=== PATIENT | female | born 1955 | race Caucasian/White ===

== ENCOUNTER 2018-09-21 17:54 | Inpatient (IN) ==
[2018-09-21 19:00] LABS: Baso # (Auto) 0.1 th/mm3 (0.0-0.2); Baso % (Auto) 0.9 % (0.0-2.0); Eos # (Auto) 0.1 th/mm3 (0.0-0.4); Eos % (Auto) 0.7 % (0.0-4.0); Hematocrit 40.9 % (35.0-46.0); Hemoglobin 13.4 gm/dL (11.6-15.3); Lymph # (Auto) 1.6 th/mm3 (1.0-4.8); Lymph % (Auto) 15.4 % (9.0-44.0); Mean Corpuscular HGB Conc 32.7 % (32.0-36.0); Mean Corpuscular Hemoglobin 27.1 pg (27.0-34.0); Mean Corpuscular Volume 82.8 fL (80.0-100.0); Mean Platelet Volume 8.8 fL (7.0-11.0); Mono # (Auto) 0.6 th/mm3 (0.0-0.9); Mono % (Auto) 6.1 % (0.0-8.0); Neut # (Auto) 7.8 th/mm3 (1.8-7.7); Neut % (Auto) 76.9 % (16.0-70.0); Platelet Count 184 th/mm3 (150-450); Red Blood Count 4.94 mil/mm3 (4.00-5.30); Red Cell Distribution Width 16.2 % (11.6-17.2); White Blood Count 10.2 th/mm3 (4.0-11.0)
[2018-09-21] MEDS ORDERED: LORazepam 1 MG Tablet PO ONE (19:07)
--- NOTE | 2018-09-21 19:08 | ED ---
HPI General Chief complaint: Psychiatric Symptoms Stated complaint: Psych eval / VCSO Time Seen by Provider: 09/21/18 17:57 History of Present Illness HPI narrative: abnormality.Patient is a 63-year-old female presents emergency department under Elliott act by physician education administrative assistant for evaluation of suicidal ideation. According to records the patient has a history of anxiety bipolar 1 disorder. She is requesting to see psychiatric provider. On my initial evaluation she is rocking back and forth sobbing and appears depressed. She denies any physical complaints. Has a history of suprapubic tube which she can cannot tell me why. According to records she has a history of urinary retention. She was seen here August 21 and had urinary tract infection at that time. Apparently she is anticoagulated on Xarelto as well. Patient sobbing limiting her history and she is not able to be directed towards history. 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 Related Data Home Medications Medication Instructions Recorded Confirmed acetaminophen 650 mg PO Q4H PRN 08/21/18 09/21/18 albuterol sulfate 2.5 mg INHALATION QID 08/21/18 09/21/18 albuterol sulfate [Ventolin HFA] 2 puff INHALATION QID 08/21/18 09/21/18 bisacodyl 5 mg PO DAILY 08/21/18 09/21/18 bumetanide 2 mg PO DAILY 08/21/18 09/21/18 calcium carbonate [Calcium 600] 600 mg PO BID 08/21/18 09/21/18 clonazepam 0.5 mg PO BID 08/21/18 09/21/18 dextran 70-hypromellose (PF) 1 drp OPHTHALMIC (EYE) Q12H PRN 08/21/18 09/21/18 docusate sodium 100 mg PO BID 08/21/18 09/21/18 duloxetine [Cymbalta] 120 mg PO 2100 08/21/18 09/21/18 fluticasone 1 spray INTRANASAL DAILY 08/21/18 09/21/18 fluticasone-salmeterol [Advair 1 inh INHALATION BID 08/21/18 09/21/18 Diskus] glipizide 2.5 mg PO DAILY 08/21/18 09/21/18 glycopyrrolate 1 mg PO TID 08/21/18 09/21/18 hydralazine 50 mg PO 0600 08/21/18 09/21/18 hydralazine 50 mg PO 1400 08/21/18 09/21/18 hydralazine 50 mg PO 2200 08/21/18 09/21/18 lacosamide [Vimpat] 200 mg PO BID 08/21/18 09/21/18 levetiracetam [Keppra] 1,500 mg PO Q12H 08/21/18 09/21/18 linaclotide [Linzess] 145 mcg PO DAILY 08/21/18 09/21/18 lisinopril 5 mg PO DAILY 08/21/18 09/21/18 lorazepam [Ativan] 1 mg IM Q10-15M PRN 08/21/18 09/21/18 meclizine 25 mg PO TID 08/21/18 09/21/18 modafinil 200 mg PO 0900 08/21/18 09/21/18 multivitamin 1 tab PO DAILY 08/21/18 09/21/18 olopatadine 1 drp OPHTHALMIC (EYE) BID 08/21/18 09/21/18 ondansetron 4 mg PO QID PRN 08/21/18 09/21/18 polyethylene glycol 3350 17 g PO BID PRN 08/21/18 09/21/18 potassium chloride 10 meq PO BID 08/21/18 09/21/18 prednisone 5 mg PO DAILY 08/21/18 09/21/18 ranitidine HCl 150 mg PO BID 08/21/18 09/21/18 rivaroxaban [Xarelto] 20 mg PO DAILY 08/21/18 09/21/18 triamcinolone acetonide 1 applic TOPICAL BID 08/21/18 09/21/18 clonidine HCl 0.1 mg PO BID 09/21/18 09/21/18 mirtazapine 7.5 mg PO DAILY 09/21/18 09/21/18 mupirocin 1 applic TOPICAL BID 09/21/18 09/21/18 nicotine 1 patch TRANSDERMAL Q24H 09/21/18 09/21/18 Previous Rx's Medication Instructions Recorded sulfamethoxazole-trimethoprim 1 tab PO BID #14 tab 09/21/18 [Bactrim] Allergies Allergy/AdvReac Type Severity Reaction Status Date / Time aspirin Allergy Unknown Abdominal Verified 08/21/18 01:52 Pain haloperidol [From Haldol] Allergy Unknown Abdominal Verified 08/21/18 01:52 Pain iodine Allergy Unknown Abdominal Verified 08/21/18 01:52 Pain metformin Allergy Unknown Abdominal Verified 08/21/18 01:52 Pain metoclopramide Allergy Unknown Abdominal Verified 08/21/18 01:52 Pain morphine Allergy Unknown Abdominal Verified 08/21/18 01:52 Pain pregabalin [From Lyrica] Allergy Unknown Abdominal Verified 08/21/18 01:52 Pain sucralfate [From Carafate] Allergy Unknown Abdominal Verified 08/21/18 01:52 Pain Review of Systems ROS Unobtainable ROS Unobtainable: unobtainable due to mental condition PMFSH Social History Social History Substance History: No History of Abuse Second Hand Smoke Exposure: No Smoking Status: Current every day smoker Tobacco Type: Cigarettes How Often Do You Have a Drink Containing Alcohol: Monthly or less Recent Travel in [facility] within the Last 8 Weeks: No Recent Out of Country Travel within the Last 8 Weeks: No Immunization History Tetanus Immunization: Unsure Exam Narrative Exam Narrative: GENERAL: Well-developed well-nourished, 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 Sobbing rocking back and forth in a stretcher. SKIN: Focused skin assessment warm/dry. HEAD: Atraumatic. Normocephalic. EYES: Pupils equal and round. No scleral icterus. No injection or drainage. ENT: No nasal bleeding or discharge. Mucous membranes pink and moist. NECK: Trachea midline. No JVD. CARDIOVASCULAR: Regular rate and rhythm. No murmur appreciated. RESPIRATORY: No accessory muscle use. Clear to auscultation. Breath sounds equal bilaterally. GASTROINTESTINAL: Abdomen soft, non-tender, nondistended. Hepatic and splenic margins not palpable. MUSCULOSKELETAL: No obvious deformities. No clubbing. No cyanosis. No edema. NEUROLOGICAL: Awake and alert. No obvious cranial nerve deficits. Motor grossly within normal limits. Normal speech. PSYCHIATRIC: Endorses suicidal ideation. Course Initial Documented Vital Signs Temperature 99.3 F 09/21/18 18:00 Pulse Rate 88 09/21/18 18:00 Respiratory Rate 19 09/21/18 18:00 Blood Pressure 143/83 H 09/21/18 18:00 Pulse Oximetry 95 09/21/18 18:00 Last Documented Vital Signs Temperature 99.3 F 09/21/18 18:00 Pulse Rate 81 09/22/18 00:13 Respiratory Rate 18 09/22/18 00:13 Blood Pressure 145/81 H 09/22/18 00:13 Pulse Oximetry 95 09/22/18 00:13 Medical Decision Making MDM Narrative Medical decision making narrative: Patient room to the emergency department, appears to have some sort of learning disability. She is certainly very depressed affect. Lexi acted today for suicidal ideation. Basic labs have been ordered and I anticipate medical clearance for psychiatric evaluation. Ativan 2 mg p.o. has been ordered. Labs reviewed showed no concerning abnormality except for continuing nitrate positive urine, the review of her previous cultures does show staph aureus positive cultures. She is been sensitive to Bactrim in the past, started on Bactrim twice daily. Will need a total course of 7 days if discharged. Currently she is medically cleared for psychiatric evaluation. Medical Screen Exam Complete: Yes Emergency Medical Condition: Yes Lab Data Result diagrams: 09/21/18 18:38 09/21/18 18:38 Lab Results 09/21/18 09/21/18 09/21/18 Range/Units 18:38 18:38 20:10 WBC 10.2 (4.0-11.0) th/mm3 RBC 4.94 (4.00-5.30) mil/mm3 Hgb 13.4 (11.6-15.3) gm/dL Hct 40.9 (35.0-46.0) % MCV 82.8 (80.0-100.0) fL MCH 27.1 (27.0-34.0) pg MCHC 32.7 (32.0-36.0) % RDW 16.2 (11.6-17.2) % Plt Count 184 (150-450) th/mm3 MPV 8.8 (7.0-11.0) fL Neut % (Auto) 76.9 H (16.0-70.0) % Lymph % (Auto) 15.4 (9.0-44.0) % [place] % (Auto) 6.1 (0.0-8.0) % Eos % (Auto) 0.7 (0.0-4.0) % Baso % (Auto) 0.9 (0.0-2.0) % Neut # (Auto) 7.8 H (1.8-7.7) th/mm3 Lymph # (Auto) 1.6 (1.0-4.8) th/mm3 [place] # (Auto) 0.6 (0.0-0.9) th/mm3 Eos # (Auto) 0.1 (0.0-0.4) th/mm3 Baso # (Auto) 0.1 (0.0-0.2) th/mm3 WBC Differential . Differential Comment Auto diff final Sodium 138 (136-145) meq/L Potassium 4.2 (3.5-5.1) meq/L Chloride 103 (98-107) meq/L Carbon Dioxide 26.3 (21.0-32.0) meq/L Anion Gap 9 (5-15) meq/L BUN 19 H (7-18) mg/dL Creatinine 1.01 H (0.50-1.00) mg/dL Estimated GFR 56 L (>89) mL/min Random Glucose 172 H (74-106) mg/dL Calcium 9.2 (8.5-10.1) mg/dL Magnesium 2.1 (1.5-2.5) mg/dL Total Bilirubin 0.2 (0.2-1.0) mg/dL AST 19 (15-37) U/L ALT 27 (10-53) U/L Alkaline Phosphatase 134 H (45-117) U/L Total Protein 7.2 (6.4-8.2) g/dL Albumin 3.8 (3.4-5.0) g/dL TSH 0.809 (0.358-3.740) uIU/mL Urine Color (Yellw/Straw) Urine Clarity (Clear) Urine pH (5.0-8.5) Ur Specific [place] (1.002-1.035) Urine Protein (Neg-Trace) mg/dL Urine Glucose (UA) (Negative) mg/dL Urine Ketones (Negative) mg/dL Urine Occult Blood (Negative) Urine Nitrate (Negative) Urine Bilirubin (Negative) Urine Urobilinogen (Less than 2) mg/dL Ur Leukocyte Esterase (Negative) Urine RBC (0-3) /hpf Urine WBC (0-5) /hpf Ur Renal Epithelial Cell (None) /hpf Urine Bacteria (None) /hpf Urine Mucus (Occasional) /lpf Micro UA Comment Ur Microscopic Review Urine Culture Comments Urine Opiates Screen Neg (Neg) Ur Barbiturates Screen Neg (Neg) Ur Amphetamines Screen Neg (Neg) U Benzodiazepines Scrn Neg (Neg) Urine Cocaine Screen Neg (Neg) U Cannabinoids Screen Neg (Neg) Serum Alcohol Less than 3 (0-5) mg/dL 09/21/18 Range/Units 20:10 WBC (4.0-11.0) th/mm3 RBC (4.00-5.30) mil/mm3 Hgb (11.6-15.3) gm/dL Hct (35.0-46.0) % MCV (80.0-100.0) fL MCH (27.0-34.0) pg MCHC (32.0-36.0) % RDW (11.6-17.2) % Plt Count (150-450) th/mm3 MPV (7.0-11.0) fL Neut % (Auto) (16.0-70.0) % Lymph % (Auto) (9.0-44.0) % [place] % (Auto) (0.0-8.0) % Eos % (Auto) (0.0-4.0) % Baso % (Auto) (0.0-2.0) % Neut # (Auto) (1.8-7.7) th/mm3 Lymph # (Auto) (1.0-4.8) th/mm3 [place] # (Auto) (0.0-0.9) th/mm3 Eos # (Auto) (0.0-0.4) th/mm3 Baso # (Auto) (0.0-0.2) th/mm3 WBC Differential Differential Comment Sodium (136-145) meq/L Potassium (3.5-5.1) meq/L Chloride (98-107) meq/L Carbon Dioxide (21.0-32.0) meq/L Anion Gap (5-15) meq/L BUN (7-18) mg/dL Creatinine (0.50-1.00) mg/dL Estimated GFR (>89) mL/min Random Glucose (74-106) mg/dL Calcium (8.5-10.1) mg/dL Magnesium (1.5-2.5) mg/dL Total Bilirubin (0.2-1.0) mg/dL AST (15-37) U/L ALT (10-53) U/L Alkaline Phosphatase (45-117) U/L Total Protein (6.4-8.2) g/dL Albumin (3.4-5.0) g/dL TSH (0.358-3.740) uIU/mL Urine Color Yellow (Yellw/Straw) Urine Clarity Cloudy H (Clear) Urine pH 5.0 (5.0-8.5) Ur Specific [place] 1.017 (1.002-1.035) Urine Protein 100 H (Neg-Trace) mg/dL Urine Glucose (UA) 50 (Negative) mg/dL Urine Ketones Negative (Negative) mg/dL Urine Occult Blood Moderate H (Negative) Urine Nitrate Positive H (Negative) Urine Bilirubin Negative (Negative) Urine Urobilinogen Less than 2 (Less than 2) mg/dL Ur Leukocyte Esterase Moderate H (Negative) Urine RBC 67 H (0-3) /hpf Urine WBC 124 H (0-5) /hpf Ur Renal Epithelial Cell <1 (None) /hpf Urine Bacteria Many H (None) /hpf Urine Mucus Few H (Occasional) /lpf Micro UA Comment Culture indicated Ur Microscopic Review Not Reportable Urine Culture Comments Culture indicated Urine Opiates Screen (Neg) Ur Barbiturates Screen (Neg) Ur Amphetamines Screen (Neg) U Benzodiazepines Scrn (Neg) Urine Cocaine Screen (Neg) U Cannabinoids Screen (Neg) Serum Alcohol (0-5) mg/dL Discharge Plan Discharge Disposition Patient Disposition: 30 Still Patient Discharge Details Diagnosis: Acute UTI Physicians Team ED Provider: Gavin Worthington Primary Care Provider: UNKNOWN, Rxs /Orders / Referrals /Forms Prescriptions: New sulfamethoxazole-trimethoprim [Bactrim] 400-80 mg tablet 1 tab PO BID Qty: 14 RF: 0 No Action triamcinolone acetonide 0.1 % Cream 1 applic TOPICAL BID RF: 0 meclizine 25 mg Tablet 25 mg PO TID RF: 0 glipizide 2.5 mg Tablet Extended Release 24hr 2.5 mg PO DAILY RF: 0 hydralazine 50 mg Tablet 50 mg PO 0600 RF: 0 hydralazine 50 mg Tablet 50 mg PO 1400 RF: 0 hydralazine 50 mg Tablet 50 mg PO 2200 RF: 0 ondansetron 4 mg Tablet,Disintegrating 4 mg PO QID PRN (Reason: Nausea) RF: 0 dextran 70-hypromellose (PF) 0.1-0.3 % [place] 1 drp OPHTHALMIC (EYE) Q12H PRN (Reason: DRY EYES) RF: 0 rivaroxaban [Xarelto] 20 mg Tablet 20 mg PO DAILY RF: 0 multivitamin Tablet 1 tab PO DAILY RF: 0 glycopyrrolate 1 mg Tablet 1 mg PO TID RF: 0 potassium chloride 10 mEq Capsule, Extended Release 10 meq PO BID RF: 0 acetaminophen 325 mg Tablet 650 mg PO Q4H PRN (Reason: Pain) RF: 0 bumetanide 2 mg Tablet 2 mg PO DAILY RF: 0 albuterol sulfate 2.5 mg /3 mL (0.083 %) Solution For Nebulization 2.5 mg INHALATION QID RF: 0 polyethylene glycol 3350 17 gram Powder In Packet 17 g PO BID PRN (Reason: Constipation) RF: 0 lorazepam [Ativan] 2 mg/mL Solution 1 mg IM Q10-15M PRN (Reason: Seizure Activity) RF: 0 clonazepam 0.5 mg Tablet 0.5 mg PO BID RF: 0 prednisone 5 mg Tablet 5 mg PO DAILY RF: 0 calcium carbonate [Calcium 600] 600 mg calcium (1,500 mg) Tablet 600 mg PO BID RF: 0 modafinil 200 mg Tablet 200 mg PO 0900 RF: 0 olopatadine 0.1 % Drops 1 drp OPHTHALMIC (EYE) BID RF: 0 fluticasone-salmeterol [Advair Diskus] 500-50 mcg/dose Blister With Device 1 inh INHALATION BID RF: 0 docusate sodium 100 mg Capsule 100 mg PO BID RF: 0 levetiracetam [Keppra] 750 mg Tablet 1,500 mg PO Q12H RF: 0 ranitidine HCl 150 mg Capsule 150 mg PO BID RF: 0 lisinopril 5 mg Tablet 5 mg PO DAILY RF: 0 albuterol sulfate [Ventolin HFA] 90 mcg/actuation Hfa Aerosol Inhaler 2 puff INHALATION QID RF: 0 fluticasone 50 mcg/actuation [place],Suspension 1 spray INTRANASAL DAILY RF: 0 bisacodyl 5 mg Tablet 5 mg PO DAILY RF: 0 duloxetine [Cymbalta] 60 mg Capsule,Delayed Release(Dr/Ec) 120 mg PO 2100 RF: 0 lacosamide [Vimpat] 200 mg Tablet 200 mg PO BID RF: 0 linaclotide [Linzess] 145 mcg Capsule 145 mcg PO DAILY RF: 0 clonidine HCl 0.1 mg Tablet 0.1 mg PO BID RF: 0 mupirocin 2 % Ointment 1 applic TOPICAL BID RF: 0 mirtazapine 7.5 mg Tablet 7.5 mg PO DAILY RF: 0 nicotine 7 mg/24 hr Patch 24 Hour 1 patch TRANSDERMAL Q24H RF: 0 Discharge Interventions Interventions: Vital Signs Last Done: 09/22/18 00:13 Status ED Status: Medically Cleared
[2018-09-21 19:20] LABS: Albumin 3.8 g/dL (3.4-5.0); Anion Gap 9 meq/L (5-15); Aspartate Aminotransferase 19 U/L (15-37); Blood Urea Nitrogen 19 mg/dL (7-18); Calcium 9.2 mg/dL (8.5-10.1); Carbon Dioxide 26.3 meq/L (21.0-32.0); Chloride 103 meq/L (98-107); Glomerular Filtration Rate 56 mL/min (>89); Glucose,Random 172 mg/dL (74-106); Magnesium 2.1 mg/dL (1.5-2.5); Potassium 4.2 meq/L (3.5-5.1); Sodium 138 meq/L (136-145)
[2018-09-21 19:30] LABS: Alanine Aminotransferase 27 U/L (10-53); Alkaline Phosphatase 134 U/L (45-117); Thyroid Stimulating Hormone 0.809 uIU/mL (0.358-3.740); Total Protein 7.2 g/dL (6.4-8.2)
[2018-09-21 20:43] LABS: Bacteria,Urine Many /hpf; Bilirubin,Urine Negative (Negative); Clarity,Urine Cloudy (Clear); Color,Urine Yellow (Yellw/Straw); Glucose,Urine (UA) 50 mg/dL (Negative); Leukocyte Esterase,Urine Moderate (Negative); Mucus,Urine Few /lpf (Occasional); Nitrite,Urine Positive (Negative); Renal Epithelial Cells,Urine <1 /hpf; Specific Gravity,Urine 1.017 (1.002-1.035)
[2018-09-21 20:45] LABS: Amphetamine Screen,Urine Neg (Neg); Barbiturate Screen,Urine Neg (Neg); Cannabinoid Screen,Urine Neg (Neg); Cocaine Screen,Urine Neg (Neg)
[2018-09-21 20:55] LABS: Opiate Screen,Urine Neg (Neg)
[2018-09-22] MEDS ORDERED: predniSONE 5 MG Tablet PO ONE (09:16)
[2018-09-22] MEDS ORDERED: Lisinopril 5 MG Tablet PO ONE (09:16)
[2018-09-22] MEDS ORDERED: glipiZIDE 5 MG Tablet PO ONE (09:18)
[2018-09-22] MEDS ORDERED: clonazePAM 0.5 MG Tablet PO ONE (09:18)
[2018-09-22] MEDS ORDERED: Rivaroxaban 20 MG Tablet PO SCH (09:30)
[2018-09-22] MEDS: levETIRAcetam 500 MG Tablet PO SCH ×2 (12:40→21:45)
[2018-09-22] MEDS: Lacosamide 100 MG Tablet PO SCH ×2 (12:42→21:45)
[2018-09-22] MEDS ORDERED: hydrALAZINE 50 MG Tablet PO SCH ×2 (13:00→22:00)
--- NOTE | 2018-09-22 14:54 | P.CONPSY ---
Provisional Diagnosis Admission Date: September 21, 2018 17:54 [place] I.: Adjustment disorder with depressed mood History of Present Illness Service: ER Primary Care Provider: UNKNOWN History of Present Illness: The patient is a 63-year-old woman, domiciled in [facility], with psychiatric history of anxiety and bipolar, who presents emergency department under Elliott act by physician educational/development assistant for evaluation of suicidal ideation. She is requesting to see psychiatric provider. On my initial evaluation she is rocking back and forth sobbing and appears depressed. She denies any physical complaints. Has a history of suprapubic tube which she can cannot tell me why. According to records she has a history of urinary retention. She was seen here August 21 and had urinary tract infection at that time. Apparently she is anticoagulated on Xarelto as well. Patient sobbing limiting her history and she is not able to be directed towards history. 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 On psychiatric evaluation today patient is superficially cooperative. She says that she was frustrated before, but she is not depressed, denies suicidal and homicidal ideation, denies visual and auditory hallucinations. [facility] - History History Provided By: Patient - Medical History Medical History: Medical History (Last Reviewed 09/21/18 @ 18:52 by Kamryn Stringer) Suprapubic catheter (Acute) GERD (gastroesophageal reflux disease) (Acute) Bipolar 1 disorder (Acute) Edema (Acute) Anxiety (Acute) Unstable angina (Acute) Osteoporosis (Acute) COPD (chronic obstructive pulmonary disease) (Acute) Heart failure (Acute) Narcolepsy (Acute) Encephalopathy (Acute) Bladder neck obstruction Constipation Dermatitis Diabetes 1.5, managed as type 2 Dietary calcium deficiency Dry eye syndrome Fibromyalgia Hypertension Hypokalemia Irritable bowel disease PTSD (post-traumatic stress disorder) Pacemaker Peptic ulcer disease Pruritic condition Seasonal allergic rhinitis Vertigo - Tobacco History Second Hand Smoke Exposure: No Tobacco Use In Past 30 Days: Yes Smoking Status: Current every day smoker Tobacco Type: Cigarettes - Alcohol History How Often Do You Have a Drink Containing Alcohol: Monthly or less - Substance Use History Substance History: No History of Abuse - Travel History Recent Travel in the [place] Within the Last 8 Weeks: No Recent Travel Out of the Country Within the Last 8 Weeks: No - Immunization History Tetanus Immunization: Unsure Medications and Allergies Active Medications: Active Medications Hydralazine HCl (Apresoline) 50 mg PO TID [facility] Last Admin: 09/22/18 14:30 Dose: 50 mg Lacosamide (Vimpat) 200 mg PO BID [facility] Last Admin: 09/22/18 12:42 Dose: 200 mg Levetiracetam (Keppra) 1,500 mg PO BID [facility] Last Admin: 09/22/18 12:40 Dose: 1,500 mg Rivaroxaban (Xarelto) 20 mg PO DAILY [facility] Last Admin: 09/22/18 12:43 Dose: 20 mg Trimethoprim/Sulfamethoxazole (Bactrim Ds) 1 tab PO Q12HR [facility] Last Admin: 09/22/18 12:41 Dose: 1 tab Allergies Allergy/AdvReac Type Severity Reaction Status Date / Time aspirin Allergy Unknown Abdominal Verified 08/21/18 01:52 Pain haloperidol [From Haldol] Allergy Unknown Abdominal Verified 08/21/18 01:52 Pain iodine Allergy Unknown Abdominal Verified 08/21/18 01:52 Pain metformin Allergy Unknown Abdominal Verified 08/21/18 01:52 Pain metoclopramide Allergy Unknown Abdominal Verified 08/21/18 01:52 Pain morphine Allergy Unknown Abdominal Verified 08/21/18 01:52 Pain pregabalin [From Lyrica] Allergy Unknown Abdominal Verified 08/21/18 01:52 Pain sucralfate [From Carafate] Allergy Unknown Abdominal Verified 08/21/18 01:52 Pain Home Medications Medication Instructions Recorded Confirmed Type acetaminophen 650 mg PO Q4H PRN 08/21/18 09/21/18 History albuterol sulfate 2.5 mg INHALATION QID 08/21/18 09/21/18 History albuterol sulfate [Ventolin HFA] 2 puff INHALATION QID 08/21/18 09/21/18 History bisacodyl 5 mg PO DAILY 08/21/18 09/21/18 History bumetanide 2 mg PO DAILY 08/21/18 09/21/18 History calcium carbonate [Calcium 600] 600 mg PO BID 08/21/18 09/21/18 History clonazepam 0.5 mg PO BID 08/21/18 09/21/18 History dextran 70-hypromellose (PF) 1 drp OPHTHALMIC (EYE) Q12H PRN 08/21/18 09/21/18 History docusate sodium 100 mg PO BID 08/21/18 09/21/18 History duloxetine [Cymbalta] 120 mg PO 2100 08/21/18 09/21/18 History fluticasone 1 spray INTRANASAL DAILY 08/21/18 09/21/18 History fluticasone-salmeterol [Advair 1 inh INHALATION BID 08/21/18 09/21/18 History Diskus] glipizide 2.5 mg PO DAILY 08/21/18 09/21/18 History glycopyrrolate 1 mg PO TID 08/21/18 09/21/18 History hydralazine 50 mg PO 0600 08/21/18 09/21/18 History hydralazine 50 mg PO 1400 08/21/18 09/21/18 History hydralazine 50 mg PO 2200 08/21/18 09/21/18 History lacosamide [Vimpat] 200 mg PO BID 08/21/18 09/21/18 History levetiracetam [Keppra] 1,500 mg PO Q12H 08/21/18 09/21/18 History linaclotide [Linzess] 145 mcg PO DAILY 08/21/18 09/21/18 History lisinopril 5 mg PO DAILY 08/21/18 09/21/18 History lorazepam [Ativan] 1 mg IM Q10-15M PRN 08/21/18 09/21/18 History meclizine 25 mg PO TID 08/21/18 09/21/18 History modafinil 200 mg PO 0900 08/21/18 09/21/18 History multivitamin 1 tab PO DAILY 08/21/18 09/21/18 History olopatadine 1 drp OPHTHALMIC (EYE) BID 08/21/18 09/21/18 History ondansetron 4 mg PO QID PRN 08/21/18 09/21/18 History polyethylene glycol 3350 17 g PO BID PRN 08/21/18 09/21/18 History potassium chloride 10 meq PO BID 08/21/18 09/21/18 History prednisone 5 mg PO DAILY 08/21/18 09/21/18 History ranitidine HCl 150 mg PO BID 08/21/18 09/21/18 History rivaroxaban [Xarelto] 20 mg PO DAILY 08/21/18 09/21/18 History triamcinolone acetonide 1 applic TOPICAL BID 08/21/18 09/21/18 History clonidine HCl 0.1 mg PO BID 09/21/18 09/21/18 History mirtazapine 7.5 mg PO DAILY 09/21/18 09/21/18 History mupirocin 1 applic TOPICAL BID 09/21/18 09/21/18 History nicotine 1 patch TRANSDERMAL Q24H 09/21/18 09/21/18 History Exam Vital signs: Vital Signs 09/21/18 18:00 09/22/18 00:13 09/22/18 06:27 Temperature 99.3 F Pulse Rate 88 81 Respiratory Rate 19 18 Blood Pressure 143/83 H 145/81 H 148/62 H Pulse Oximetry 95 95 09/22/18 12:46 09/22/18 14:27 Temperature Pulse Rate 91 H 88 Respiratory Rate 18 18 Blood Pressure 154/84 H 145/78 H Pulse Oximetry 97 94 L Intake & Output 09/21/18 09/22/18 09/22/18 18:59 06:59 18:59 Output Total 875 / 875 Balance -875 / -875 Weight 99.79 kg Output: Urine Amount (Catheter) 875 / 875 Suprapubic 875 / 875 Mental Status Examination Appearance: Appropriate Consciousness: Alert Orientation: x4 Motor Activity: Normal gait Speech: Unremarkable Language: Adequate Fund of Knowledge: Adequate Attention and Concentration: Adequate Memory: Unremarkable Mood: Appropriate Affect: Appropriate Thought Process & Associations: Intact Thought Content: Appropriate Hallucination Type: None Delusion Type: None Suicidal Ideation: No Suicidal Plan: No Suicidal Intention: No Homicidal Ideation: No Homicidal Plan: No Homicidal Intention: No Insight: Poor Judgment: Poor Assessment and Plan - Plan Plan: This patient does not meet criteria for involuntary psychiatric admission. The patient denies symptoms of depression, she denies aftab, psychosis. She denies suicidal and homicidal ideation. Justification for Continued Inpatient Stay: No admission is indicated.
[2018-09-22] MEDS ORDERED: Polyethylene Glycol 3350 17 GM Packet PO PRN (15:30)
[2018-09-22] MEDS ORDERED: Acetaminophen 325 MG Tablet PO PRN (15:30)
[2018-09-22] MEDS ORDERED: LEVETIRACETAM 1500 MG PO SCH (15:30)
--- NOTE | 2018-09-22 15:56 | P.CONIM ---
History of Present Illness Primary Care Provider: UNKNOWN History of Present Illness: 63-year-old female brought into the emergency room under Elliott act for reported suicidal ideation. Patient evaluated in the ED and found to have abnormal urinalysis suggestive of UTI. She was evaluated by psychiatry and Elliott act was lifted. Patient is cleared for discharge back to [facility]. However the facility will not accept her back. Patient will be in an outpatient bed with no observation services while waiting for placement. The patient is a poor historian, she states the police brought her here. She reports feeling frustrated but has no other complaints. Very poor historian with obvious developmental disorder. [facility] - History History Provided By: Patient - Medical History Medical History: Medical History (Last Reviewed 09/22/18 @ 15:52 by Riki Vázquez MD) Suprapubic catheter (Acute) GERD (gastroesophageal reflux disease) (Acute) Bipolar 1 disorder (Acute) Edema (Acute) Anxiety (Acute) Unstable angina (Acute) Osteoporosis (Acute) COPD (chronic obstructive pulmonary disease) (Acute) Heart failure (Acute) Narcolepsy (Acute) Encephalopathy (Acute) Bladder neck obstruction Constipation Dermatitis Diabetes 1.5, managed as type 2 Dietary calcium deficiency Dry eye syndrome Fibromyalgia Hypertension Hypokalemia Irritable bowel disease PTSD (post-traumatic stress disorder) Pacemaker Peptic ulcer disease Pruritic condition Seasonal allergic rhinitis Vertigo - Tobacco History Second Hand Smoke Exposure: No Tobacco Use In Past 30 Days: Yes Smoking Status: Current every day smoker Tobacco Type: Cigarettes - Alcohol History How Often Do You Have a Drink Containing Alcohol: Monthly or less - Substance Use History Substance History: No History of Abuse - Travel History Recent Travel in the [place] Within the Last 8 Weeks: No Recent Travel Out of the Country Within the Last 8 Weeks: No - Immunization History Tetanus Immunization: Unsure Medications and Allergies Active Medications: Active Medications Acetaminophen (Tylenol) 650 mg PO Q4H PRN PRN Reason: Pain Albuterol (*Albuterol Neb Periprocedure Only) 2.5 mg NEB QID NICK Clonazepam (Klonopin) 0.5 mg PO BID NICK Clonidine HCl (Clonidine (Nicu) 20 Mcg/Ml Liq) 100 mcg PO BID NICK Docusate Sodium (Colace) 100 mg PO BID NICK Duloxetine HCl (Cymbalta) 120 mg PO 2100 NICK Fluticasone Propionate (Flonase Nasal [place]) 1 spray EACH NARE DAILY NICK Glycopyrrolate (Robinul) 1 mg PO TID [facility] Hydralazine HCl (Apresoline) 50 mg PO TID [facility] Last Admin: 09/22/18 14:30 Dose: 50 mg Hydralazine HCl (Apresoline) 50 mg PO 0600 NICK Hydralazine HCl (Apresoline) 50 mg PO 1400 [facility] Hydralazine HCl (Apresoline) 50 mg PO 2200 [facility] Lacosamide (Vimpat) 200 mg PO BID [facility] Last Admin: 09/22/18 12:42 Dose: 200 mg Levetiracetam (Keppra) 1,500 mg PO BID [facility] Last Admin: 09/22/18 12:40 Dose: 1,500 mg Lisinopril (Prinivil) 5 mg PO DAILY [facility] Meclizine HCl (Antivert) 25 mg PO TID [facility] Modafinil (Provigil) 200 mg PO 0900 [facility] Mupirocin (Bactroban 2% Oint) 1 applicatio TOPICAL BID [facility] Non-Formulary Medication (Albuterol Sulfate) 2 puff INHALATION QID NICK Non-Formulary Medication (Bisacodyl [Bisacodyl]) 5 mg PO DAILY NICK Non-Formulary Medication (Bumetanide [Bumetanide]) 2 mg PO DAILY NICK Non-Formulary Medication (Calcium Carbonate [Calcium 600]) 600 mg PO BID NICK Non-Formulary Medication (Fluticasone-Salmeterol [Advair Diskus]) 1 inh INHALATION BID [facility] Non-Formulary Medication (Glipizide [Glipizide]) 2.5 mg PO DAILY NICK Non-Formulary Medication (Levetiracetam [Keppra]) 1,500 mg PO Q12H NICK Non-Formulary Medication (Linaclotide [Linzess]) 145 mcg PO DAILY NICK Non-Formulary Medication (Mirtazapine [Mirtazapine]) 7.5 mg PO DAILY NICK Non-Formulary Medication (Multivitamin [Multivitamin]) 1 tab PO DAILY NICK Non-Formulary Medication (Ranitidine Hcl [Ranitidine Hcl]) 150 mg PO BID NICK Non-Formulary Medication (Dextran 70-Hypromellose (Pf) [Dextran 70-Hypromellose (Pf)]) 1 drp EACH EYE Q12H PRN PRN Reason: DRY EYES Non-Formulary Medication (Lacosamide [Vimpat]) 200 mg PO BID [facility] Olopatadine HCl (Patanol 0.1% Opth Drops) drop EACH EYE BID [facility] Ondansetron HCl (Zofran Odt) 4 mg PO QID PRN PRN Reason: Nausea Polyethylene Glycol (Miralax) 17 gm PO BID PRN PRN Reason: Constipation Potassium Chloride (Kcl) 10 meq PO BID [facility] Prednisone (Deltasone) 5 mg PO DAILY [facility] Rivaroxaban (Xarelto) 20 mg PO DAILY [facility] Last Admin: 09/22/18 12:43 Dose: 20 mg Rivaroxaban (Xarelto) 20 mg PO DAILY [facility] Trimethoprim/Sulfamethoxazole (Bactrim Ds) 1 tab PO Q12HR [facility] Last Admin: 09/22/18 12:41 Dose: 1 tab Allergies Allergy/AdvReac Type Severity Reaction Status Date / Time aspirin Allergy Unknown Abdominal Verified 08/21/18 01:52 Pain haloperidol [From Haldol] Allergy Unknown Abdominal Verified 08/21/18 01:52 Pain iodine Allergy Unknown Abdominal Verified 08/21/18 01:52 Pain metformin Allergy Unknown Abdominal Verified 08/21/18 01:52 Pain metoclopramide Allergy Unknown Abdominal Verified 08/21/18 01:52 Pain morphine Allergy Unknown Abdominal Verified 08/21/18 01:52 Pain pregabalin [From Lyrica] Allergy Unknown Abdominal Verified 08/21/18 01:52 Pain sucralfate [From Carafate] Allergy Unknown Abdominal Verified 08/21/18 01:52 Pain Home Medications Medication Instructions Recorded Confirmed Type acetaminophen 650 mg PO Q4H PRN 08/21/18 09/21/18 History albuterol sulfate 2.5 mg INHALATION QID 08/21/18 09/21/18 History albuterol sulfate [Ventolin HFA] 2 puff INHALATION QID 08/21/18 09/21/18 History bisacodyl 5 mg PO DAILY 08/21/18 09/21/18 History bumetanide 2 mg PO DAILY 08/21/18 09/21/18 History calcium carbonate [Calcium 600] 600 mg PO BID 08/21/18 09/21/18 History clonazepam 0.5 mg PO BID 08/21/18 09/21/18 History dextran 70-hypromellose (PF) 1 drp OPHTHALMIC (EYE) Q12H PRN 08/21/18 09/21/18 History docusate sodium 100 mg PO BID 08/21/18 09/21/18 History duloxetine [Cymbalta] 120 mg PO 2100 08/21/18 09/21/18 History fluticasone 1 spray INTRANASAL DAILY 08/21/18 09/21/18 History fluticasone-salmeterol [Advair 1 inh INHALATION BID 08/21/18 09/21/18 History Diskus] glipizide 2.5 mg PO DAILY 08/21/18 09/21/18 History glycopyrrolate 1 mg PO TID 08/21/18 09/21/18 History hydralazine 50 mg PO 0600 08/21/18 09/21/18 History hydralazine 50 mg PO 1400 08/21/18 09/21/18 History hydralazine 50 mg PO 2200 08/21/18 09/21/18 History lacosamide [Vimpat] 200 mg PO BID 08/21/18 09/21/18 History levetiracetam [Keppra] 1,500 mg PO Q12H 08/21/18 09/21/18 History linaclotide [Linzess] 145 mcg PO DAILY 08/21/18 09/21/18 History lisinopril 5 mg PO DAILY 08/21/18 09/21/18 History lorazepam [Ativan] 1 mg IM Q10-15M PRN 08/21/18 09/21/18 History meclizine 25 mg PO TID 08/21/18 09/21/18 History modafinil 200 mg PO 0900 08/21/18 09/21/18 History multivitamin 1 tab PO DAILY 08/21/18 09/21/18 History olopatadine 1 drp OPHTHALMIC (EYE) BID 08/21/18 09/21/18 History ondansetron 4 mg PO QID PRN 08/21/18 09/21/18 History polyethylene glycol 3350 17 g PO BID PRN 08/21/18 09/21/18 History potassium chloride 10 meq PO BID 08/21/18 09/21/18 History prednisone 5 mg PO DAILY 08/21/18 09/21/18 History ranitidine HCl 150 mg PO BID 08/21/18 09/21/18 History rivaroxaban [Xarelto] 20 mg PO DAILY 08/21/18 09/21/18 History triamcinolone acetonide 1 applic TOPICAL BID 08/21/18 09/21/18 History clonidine HCl 0.1 mg PO BID 09/21/18 09/21/18 History mirtazapine 7.5 mg PO DAILY 09/21/18 09/21/18 History mupirocin 1 applic TOPICAL BID 09/21/18 09/21/18 History nicotine 1 patch TRANSDERMAL Q24H 09/21/18 09/21/18 History Exam Vital signs: Vital Signs 09/21/18 18:00 09/22/18 00:13 09/22/18 06:27 Temperature 99.3 F Pulse Rate 88 81 Respiratory Rate 19 18 Blood Pressure 143/83 H 145/81 H 148/62 H Pulse Oximetry 95 95 09/22/18 12:46 09/22/18 14:27 Temperature Pulse Rate 91 H 88 Respiratory Rate 18 18 Blood Pressure 154/84 H 145/78 H Pulse Oximetry 97 94 L Intake & Output 09/21/18 09/22/18 09/22/18 18:59 06:59 18:59 Output Total 875 / 875 Balance -875 / -875 Weight 99.79 kg Output: Urine Amount (Catheter) 875 / 875 Suprapubic 875 / 875 Narrative: GENERAL: Obese female, restless CARDIOVASCULAR: Normal rate and regular rhythm without murmurs, gallops, or rubs. RESPIRATORY: Breath sounds equal and clear to auscultation bilaterally. GASTROINTESTINAL: Abdomen obese, nondistended, suprapubic catheter in place NEURO: Alert & Oriented to self and place. Moves all ext x4 PSYCH: Restless Results - Labs CBC & Chem 7: 09/21/18 18:38 09/21/18 18:38 Labs: Laboratory Results - last 24 hr 09/21/18 09/21/18 09/21/18 18:38 18:38 20:10 WBC 10.2 RBC 4.94 Hgb 13.4 Hct 40.9 MCV 82.8 MCH 27.1 MCHC 32.7 RDW 16.2 Plt Count 184 MPV 8.8 Neut % (Auto) 76.9 H Lymph % (Auto) 15.4 [place] % (Auto) 6.1 Eos % (Auto) 0.7 Baso % (Auto) 0.9 Neut # (Auto) 7.8 H Lymph # (Auto) 1.6 [place] # (Auto) 0.6 Eos # (Auto) 0.1 Baso # (Auto) 0.1 WBC Differential . Differential Comment Auto diff final Sodium 138 Potassium 4.2 Chloride 103 Carbon Dioxide 26.3 Anion Gap 9 BUN 19 H Creatinine 1.01 H Estimated GFR 56 L Random Glucose 172 H Calcium 9.2 Magnesium 2.1 Total Bilirubin 0.2 AST 19 ALT 27 Alkaline Phosphatase 134 H Total Protein 7.2 Albumin 3.8 TSH 0.809 Urine Color Urine Clarity Urine pH Ur Specific [place] Urine Protein Urine Glucose (UA) Urine Ketones Urine Occult Blood Urine Nitrate Urine Bilirubin Urine Urobilinogen Ur Leukocyte Esterase Urine RBC Urine WBC Ur Renal Epithelial Cell Urine Bacteria Urine Mucus Micro UA Comment Ur Microscopic Review Urine Culture Comments Urine Opiates Screen Neg Ur Barbiturates Screen Neg Ur Amphetamines Screen Neg U Benzodiazepines Scrn Neg Urine Cocaine Screen Neg U Cannabinoids Screen Neg Serum Alcohol Less than 3 09/21/18 20:10 WBC RBC Hgb Hct MCV MCH MCHC RDW Plt Count MPV Neut % (Auto) Lymph % (Auto) [place] % (Auto) Eos % (Auto) Baso % (Auto) Neut # (Auto) Lymph # (Auto) [place] # (Auto) Eos # (Auto) Baso # (Auto) WBC Differential Differential Comment Sodium Potassium Chloride Carbon Dioxide Anion Gap BUN Creatinine Estimated GFR Random Glucose Calcium Magnesium Total Bilirubin AST ALT Alkaline Phosphatase Total Protein Albumin TSH Urine Color Yellow Urine Clarity Cloudy H Urine pH 5.0 Ur Specific [place] 1.017 Urine Protein 100 H Urine Glucose (UA) 50 Urine Ketones Negative Urine Occult Blood Moderate H Urine Nitrate Positive H Urine Bilirubin Negative Urine Urobilinogen Less than 2 Ur Leukocyte Esterase Moderate H Urine RBC 67 H Urine WBC 124 H Ur Renal Epithelial Cell <1 Urine Bacteria Many H Urine Mucus Few H Micro UA Comment Culture indicated Ur Microscopic Review Not Reportable Urine Culture Comments Culture indicated Urine Opiates Screen Ur Barbiturates Screen Ur Amphetamines Screen U Benzodiazepines Scrn Urine Cocaine Screen U Cannabinoids Screen Serum Alcohol Assessment and Plan - Plan 63-year-old female with multiple medical problems including diabetes, hypertension, bipolar disorder brought in to the emergency room under Elliott act. The patient was seen by psychiatry and medically cleared by ED physician but her facility will not accept her back. Patient will be in an outpatient bed with no observation services while case management fine alternative placement. -Continue all the patient's home medications. - The patient was found to have urinalysis suggestive of a UTI. She will continue on Bactrim. Follow urine cultures.
[2018-09-22] MEDS ORDERED: Artificial Tears Opth Drops 15 ML Bottle EACH EYE PRN (21:00)
[2018-09-22] MEDS: Olopatadine 0.1% Opth Drops 5 ML Bottle EACH EYE SCH (21:45)
[2018-09-22] MEDS: Famotidine 20 MG Tablet PO SCH (21:45)
[2018-09-22] MEDS: Budesonide-Formoterol 160/4.5 MCG 6 GM Inhaler INH SCH (21:45)
[2018-09-22] MEDS: Calcium Carbonate 500 MG Tablet PO SCH (21:45)
[2018-09-22] MEDS: clonazePAM 0.5 MG Tablet PO SCH (21:45)
[2018-09-22] MEDS: Duloxetine 60 MG DR Capsule PO SCH (21:45)
[2018-09-22] MEDS: Docusate Sodium 100 MG Capsule PO SCH (21:45)
[2018-09-22] MEDS: hydrALAZINE 50 MG Tablet PO SCH (21:55)
[2018-09-23] MEDS: hydrALAZINE 50 MG Tablet PO SCH ×4 (06:07→21:47)
[2018-09-23] MEDS: glipiZIDE 5 MG Tablet PO SCH (07:45)
[2018-09-23] MEDS: Mirtazapine 15 MG Tablet PO SCH (08:55)
[2018-09-23] MEDS: predniSONE 5 MG Tablet PO SCH (08:55)
[2018-09-23] MEDS: clonazePAM 0.5 MG Tablet PO SCH ×2 (08:55→21:51)
[2018-09-23] MEDS: Rivaroxaban 20 MG Tablet PO SCH ×2 (08:55→09:12)
[2018-09-23] MEDS: levETIRAcetam 500 MG Tablet PO SCH ×2 (08:58→21:41)
[2018-09-23] MEDS: Lisinopril 5 MG Tablet PO SCH (08:58)
[2018-09-23] MEDS: Calcium Carbonate 500 MG Tablet PO SCH ×2 (08:59→21:41)
[2018-09-23] MEDS ORDERED: LINZESS 145 MCG PO SCH (09:00)
[2018-09-23] MEDS: Docusate Sodium 100 MG Capsule PO SCH ×2 (09:01→21:41)
[2018-09-23] MEDS: Famotidine 20 MG Tablet PO SCH ×2 (11:26→21:39)
[2018-09-23] MEDS: Lacosamide 100 MG Tablet PO SCH ×2 (11:27→21:39)
[2018-09-23] MEDS: Budesonide-Formoterol 160/4.5 MCG 6 GM Inhaler INH SCH ×2 (11:27→21:44)
[2018-09-23] MEDS: Olopatadine 0.1% Opth Drops 5 ML Bottle EACH EYE SCH ×2 (11:29→21:43)
[2018-09-23] MEDS ORDERED: Phenol 1.4% 180 ML Spray Bottle OROPHARYNG PRN (12:14)
[2018-09-23] MEDS ORDERED: Ciprofloxacin 250 MG Tablet PO SCH (12:15)
--- NOTE | 2018-09-23 12:19 | P.PN ---
Subjective Interval history: With hematuria however resolved after changing suprapubic astudillo. No fever or chills On PO abx No n/v/d/.c Physical Exam Vital signs: Vital Signs 09/22/18 12:46 09/22/18 14:27 09/22/18 18:16 Temperature Pulse Rate 91 H 88 88 Respiratory Rate 18 18 22 Blood Pressure 154/84 H 145/78 H Pulse Oximetry 97 94 L 09/22/18 19:41 09/22/18 19:51 09/22/18 23:40 Temperature 99.9 F H Pulse Rate 90 88 Respiratory Rate 24 16 18 Blood Pressure 125/68 Pulse Oximetry 95 09/23/18 08:00 09/23/18 08:04 09/23/18 11:39 Temperature 98.1 F Pulse Rate 76 87 73 Respiratory Rate 20 20 22 Blood Pressure 134/63 Pulse Oximetry 93 L 09/23/18 12:00 Temperature 97.7 F Pulse Rate 75 Respiratory Rate 20 Blood Pressure 116/56 L Pulse Oximetry 94 L Intake & Output 09/22/18 09/23/18 09/23/18 18:59 06:59 18:59 Output Total 1650 / 1650 700 / 700 Balance -1650 / -1650 -700 / -700 Output: Urine Amount (Catheter) 1650 / 1650 700 / 700 Suprapubic 1650 / 1650 700 / 700 Other: # Voids 0 Narrative: GENERAL: Obese female, restless CARDIOVASCULAR: Normal rate and regular rhythm without murmurs, gallops, or rubs. RESPIRATORY: Breath sounds equal and clear to auscultation bilaterally. GASTROINTESTINAL: Abdomen obese, nondistended, suprapubic catheter in place NEURO: Alert & Oriented to self and place. Moves all ext x4 PSYCH: Restless - Urinary Catheter Management Suprapubic Cath placed during this visit: no Results - Labs CBC & Chem 7: 09/21/18 18:38 09/21/18 18:38 Laboratory Results - last 24 hr 09/23/18 09/23/18 00:57 09:09 POC Glucose 136 H 139 H Assessment and Plan - Plan 63-year-old female with multiple medical problems including diabetes, hypertension, bipolar disorder brought in to the emergency room under Elliott act. The patient was seen by psychiatry and medically cleared by ED physician but her facility will not accept her back. Patient will be in an outpatient bed with no observation services while case management fine alternative placement. However patient with UTI start IV abx Rocephyn IV monitor urine cultures until final UTI with indwelling catheter suprapubic catheter UA reviewed. U cx are pending - The patient was found to have urinalysis suggestive of a UTI. She will continue on Bactrim. Sore throat. Give prn Chlorasept spray -Continue all the patient's home medications.
[2018-09-23] MEDS: Modafinil 200 MG Tablet PO SCH (13:50)
[2018-09-23] MEDS ORDERED: hydrALAZINE 50 MG Tablet PO SCH (14:00)
[2018-09-23] MEDS ORDERED: Sod Chloride 0.9% Inj 1,000 ML IV.SIG SCH (17:06)
[2018-09-23] MEDS ORDERED: Sodium Chloride 0.9% 2 ML Flush PRN IV.FLUSH (17:07)
--- NOTE | 2018-09-23 17:11 | P.PN ---
Subjective Interval history: Patient is in bed and was noted with low urine output, will admit patient impatient, start IVF, will monitor urine OP. She was noted altered mental status, not awaking with sternal rub, however she was abusable when tried to place IV, and says she has narcolepsy/ epilepsy. Physical Exam Vital signs: Vital Signs 09/22/18 18:16 09/22/18 19:41 09/22/18 19:51 Temperature 99.9 F H Pulse Rate 88 90 88 Respiratory Rate 22 24 16 Blood Pressure 125/68 Pulse Oximetry 95 09/22/18 23:40 09/23/18 08:00 09/23/18 08:04 Temperature 98.1 F Pulse Rate 76 87 Respiratory Rate 18 20 20 Blood Pressure 134/63 Pulse Oximetry 93 L 09/23/18 11:39 09/23/18 12:00 09/23/18 16:49 Temperature 97.7 F Pulse Rate 73 75 67 Respiratory Rate 22 20 18 Blood Pressure 116/56 L 102/57 L Pulse Oximetry 94 L Intake & Output 09/22/18 09/23/18 09/23/18 18:59 06:59 18:59 Output Total 1650 / 1650 700 / 700 Balance -1650 / -1650 -700 / -700 Output: Urine Amount (Catheter) 1650 / 1650 700 / 700 Suprapubic 1650 / 1650 700 / 700 Other: # Voids 0 Narrative: GENERAL: Obese female, restless CARDIOVASCULAR: Normal rate and regular rhythm without murmurs, gallops, or rubs. RESPIRATORY: Breath sounds equal and clear to auscultation bilaterally. GASTROINTESTINAL: Abdomen obese, nondistended, suprapubic catheter in place NEURO: Alert & Oriented to self and place. Moves all ext x4 PSYCH: Restless - Urinary Catheter Management Suprapubic Cath placed during this visit: no Results - Labs CBC & Chem 7: 09/21/18 18:38 09/21/18 18:38 Laboratory Results - last 24 hr 09/21/18 09/23/18 09/23/18 20:10 00:57 09:09 POC Glucose 136 H 139 H Urine Color Yellow Urine Clarity Cloudy H Urine pH 5.0 Ur Specific [place] 1.017 Urine Protein 100 H Urine Glucose (UA) 50 Urine Ketones Negative Urine Occult Blood Moderate H Urine Nitrate Positive H Urine Bilirubin Negative Urine Urobilinogen Less than 2 Ur Leukocyte Esterase Moderate H Urine RBC 67 H Urine WBC 124 H Ur Renal Epithelial Cell <1 Urine Bacteria Many H Urine Mucus Few H Micro UA Comment Culture indicated Urine Culture Comments Culture indicated 09/23/18 13:48 POC Glucose 158 H Urine Color Urine Clarity Urine pH Ur Specific [place] Urine Protein Urine Glucose (UA) Urine Ketones Urine Occult Blood Urine Nitrate Urine Bilirubin Urine Urobilinogen Ur Leukocyte Esterase Urine RBC Urine WBC Ur Renal Epithelial Cell Urine Bacteria Urine Mucus Micro UA Comment Urine Culture Comments Microbiology 09/21/18 20:10 Clean Catch Urine Urine Culture - Preliminary S. aureus MRSA Assessment and Plan - Plan 63-year-old female with multiple medical problems including diabetes, hypertension, bipolar disorder brought in to the emergency room under Elliott act. The patient was seen by psychiatry and medically cleared by ED physician but her facility will not accept her back. Patient will be in an outpatient bed with no observation services while case management fine alternative placement. However patient with UTI start IV abx Rocephyn IV monitor urine cultures until final UTI with indwelling catheter suprapubic catheter UA reviewed. Ucx are pending - The patient was found to have urinalysis suggestive of a UTI. DC bactrim , will start Rocephin Noted with low urine OP will start IVF give 1 l NS and start IVF NS at 83cc/hr. Admit inpatient Sore throat. Give prn Chlorasept spray -Continue all the patient's home medications. Move to IP
[2018-09-23 17:19] LABS: ABG Base Excess 1.5 mmol/L (-2-2); ABG PCO2 44 mmHg (38-42); ABG PO2 57 mmHg (61-120)
--- NOTE | 2018-09-23 17:43 | XR ---
EXAM DATE: 09/23/2018 5:39 PM EDT AGE/SEX: 63 years / Female INDICATIONS: Cough. CLINICAL DATA: This is the patient's initial encounter. Patient reports that signs and symptoms have been present for 1 day and indicates a pain score of 4/10. MEDICAL/SURGICAL HISTORY: Chronic obstructive pulmonary disease. Pacemaker. COMPARISON: C, CHEST 1V SINGLE AP, 07/19/2018. . FINDINGS: The heart is stable. The pulmonary vascular pattern is normal. The lungs are clear. Left subclavian d ual lead pacemaker has its tips in right atrium and right ventricle. CONCLUSION: No acute cardiopulmonary disease. Electronically signed by: Gavin Bartlett MD 09/23/2018 5:41 PM EDT
[2018-09-23] MEDS: Sod Chloride 0.9% Inj 1,000 ML IV.CONT SCH (18:53)
[2018-09-23 19:05] LABS: Baso % (Auto) 0.5 % (0.0-2.0); Eos # (Auto) 0.1 th/mm3 (0.0-0.4); Eos % (Auto) 0.7 % (0.0-4.0); Hematocrit 40.5 % (35.0-46.0); Hemoglobin 13.4 gm/dL (11.6-15.3); Lymph # (Auto) 1.8 th/mm3 (1.0-4.8); Lymph % (Auto) 17.8 % (9.0-44.0); Mean Corpuscular HGB Conc 33.2 % (32.0-36.0); Mean Corpuscular Hemoglobin 27.4 pg (27.0-34.0); Mean Corpuscular Volume 82.4 fL (80.0-100.0); Mean Platelet Volume 9.1 fL (7.0-11.0); Mono # (Auto) 0.9 th/mm3 (0.0-0.9); Mono % (Auto) 9.5 % (0.0-8.0); Neut # (Auto) 7.1 th/mm3 (1.8-7.7); Neut % (Auto) 71.5 % (16.0-70.0); Platelet Count 197 th/mm3 (150-450); Red Blood Count 4.92 mil/mm3 (4.00-5.30); Red Cell Distribution Width 15.9 % (11.6-17.2); White Blood Count 9.9 th/mm3 (4.0-11.0)
[2018-09-23 19:27] LABS: Albumin 3.6 g/dL (3.4-5.0); Anion Gap 7 meq/L (5-15); Aspartate Aminotransferase 13 U/L (15-37); Blood Urea Nitrogen 18 mg/dL (7-18); Calcium 9.5 mg/dL (8.5-10.1); Carbon Dioxide 27.2 meq/L (21.0-32.0); Chloride 103 meq/L (98-107); Glomerular Filtration Rate 46 mL/min (>89); Glucose,Random 114 mg/dL (74-106); Potassium 4.2 meq/L (3.5-5.1); Sodium 137 meq/L (136-145)
[2018-09-23 19:31] LABS: Alanine Aminotransferase 23 U/L (10-53); Alkaline Phosphatase 125 U/L (45-117); Total Protein 7.4 g/dL (6.4-8.2)
[2018-09-23] MEDS: Duloxetine 60 MG DR Capsule PO SCH (21:40)
[2018-09-23] MEDS: Sodium Chloride 0.9% 2 ML Flush BID IV.FLUSH SCH (21:43)
[2018-09-24 04:20] LABS: Baso % (Auto) 0.5 % (0.0-2.0); Eos # (Auto) 0.2 th/mm3 (0.0-0.4); Eos % (Auto) 2.4 % (0.0-4.0); Hematocrit 37.3 % (35.0-46.0); Hemoglobin 12.3 gm/dL (11.6-15.3); Lymph # (Auto) 1.7 th/mm3 (1.0-4.8); Lymph % (Auto) 25.3 % (9.0-44.0); Mean Corpuscular Hemoglobin 27.4 pg (27.0-34.0); Mono # (Auto) 0.8 th/mm3 (0.0-0.9); Mono % (Auto) 12.4 % (0.0-8.0); Neut % (Auto) 59.4 % (16.0-70.0); Platelet Count 162 th/mm3 (150-450); Red Blood Count 4.49 mil/mm3 (4.00-5.30); White Blood Count 6.7 th/mm3 (4.0-11.0)
[2018-09-24 05:00] LABS: Calcium 9.1 mg/dL (8.5-10.1); Carbon Dioxide 27.7 meq/L (21.0-32.0)
[2018-09-24] MEDS: hydrALAZINE 50 MG Tablet PO SCH ×3 (05:17→21:48)
[2018-09-24] MEDS: Sod Chloride 0.9% Inj 1,000 ML IV.CONT SCH ×2 (05:19→17:55)
--- NOTE | 2018-09-24 09:09 | P.CONNP ---
<Mahnaz Rodriguez - Last Filed: 09/24/18 15:23> History of Present Illness Service: Nephrology Consult date: 09/24/18 Requesting Physician: Jess Silveira Reason for Consult: Acute kidney injury and oliguria Primary Care Provider: UNKNOWN History of Present Illness: Patient is a 63 year old female with multiple medical problems including hypertension, diabetes, bipolar, anxiety, COPD, hx of urinary obstruction with suprapubic catheter, and seizures. Presented to emergency from assisted living facility under Elliott Act for evaluation for suicidal ideation. Was evaluated per psychiatry and elliott act has been lifted. Patient was found to have a urinary tract infection, MRSA. Nephrology is consulted for elevated BUN and creatinine with oliguria. Creatinine at 1.49. Baseline creatinine is less than 1. Patient is not a good historian but reports that she has a history of being on hemodialysis for 3 treatments over a year ago in [facility]. Reports some shortness of breath, denies any chest pain, nausea, vomiting, or diarrhea. [facility] - History History Provided By: Patient - Medical History Medical History: Medical History (Last Reviewed 09/22/18 @ 15:52 by Riki Vázquez MD) Suprapubic catheter (Acute) GERD (gastroesophageal reflux disease) (Acute) Bipolar 1 disorder (Acute) Edema (Acute) Anxiety (Acute) Unstable angina (Acute) Osteoporosis (Acute) COPD (chronic obstructive pulmonary disease) (Acute) Heart failure (Acute) Narcolepsy (Acute) Encephalopathy (Acute) Bladder neck obstruction Constipation Dermatitis Diabetes 1.5, managed as type 2 Dietary calcium deficiency Dry eye syndrome Fibromyalgia Hypertension Hypokalemia Irritable bowel disease PTSD (post-traumatic stress disorder) Pacemaker Peptic ulcer disease Pruritic condition Seasonal allergic rhinitis Vertigo - Tobacco History Second Hand Smoke Exposure: No Tobacco Use In Past 30 Days: Yes Smoking Status: Unknown if ever smoked Tobacco Type: Cigarettes - Alcohol History How Often Do You Have a Drink Containing Alcohol: Unable to Obtain - Substance Use History Substance History: No History of Abuse - Travel History Recent Travel in the [place] Within the Last 8 Weeks: No Recent Travel Out of the Country Within the Last 8 Weeks: No - Immunization History Tetanus Immunization: Unsure Medications and Allergies Allergies Allergy/AdvReac Type Severity Reaction Status Date / Time aspirin Allergy Unknown Abdominal Verified 08/21/18 01:52 Pain haloperidol [From Haldol] Allergy Unknown Abdominal Verified 08/21/18 01:52 Pain iodine Allergy Unknown Abdominal Verified 08/21/18 01:52 Pain metformin Allergy Unknown Abdominal Verified 08/21/18 01:52 Pain metoclopramide Allergy Unknown Abdominal Verified 08/21/18 01:52 Pain morphine Allergy Unknown Abdominal Verified 08/21/18 01:52 Pain pregabalin [From Lyrica] Allergy Unknown Abdominal Verified 08/21/18 01:52 Pain sucralfate [From Carafate] Allergy Unknown Abdominal Verified 08/21/18 01:52 Pain Home Medications Medication Instructions Recorded Confirmed Type acetaminophen 650 mg PO Q4H PRN 08/21/18 09/21/18 History albuterol sulfate 2.5 mg INHALATION QID 08/21/18 09/21/18 History albuterol sulfate [Ventolin HFA] 2 puff INHALATION QID 08/21/18 09/21/18 History bisacodyl 5 mg PO DAILY 08/21/18 09/21/18 History bumetanide 2 mg PO DAILY 08/21/18 09/21/18 History calcium carbonate [Calcium 600] 600 mg PO BID 08/21/18 09/21/18 History clonazepam 0.5 mg PO BID 08/21/18 09/21/18 History dextran 70-hypromellose (PF) 1 drp OPHTHALMIC (EYE) Q12H PRN 08/21/18 09/21/18 History docusate sodium 100 mg PO BID 08/21/18 09/21/18 History duloxetine [Cymbalta] 120 mg PO 2100 08/21/18 09/21/18 History fluticasone 1 spray INTRANASAL DAILY 08/21/18 09/21/18 History fluticasone-salmeterol [Advair 1 inh INHALATION BID 08/21/18 09/21/18 History Diskus] glipizide 2.5 mg PO DAILY 08/21/18 09/21/18 History glycopyrrolate 1 mg PO TID 08/21/18 09/21/18 History hydralazine 50 mg PO 0600 08/21/18 09/21/18 History hydralazine 50 mg PO 1400 08/21/18 09/21/18 History hydralazine 50 mg PO 2200 08/21/18 09/21/18 History lacosamide [Vimpat] 200 mg PO BID 08/21/18 09/21/18 History levetiracetam [Keppra] 1,500 mg PO Q12H 08/21/18 09/21/18 History linaclotide [Linzess] 145 mcg PO DAILY 08/21/18 09/21/18 History lisinopril 5 mg PO DAILY 08/21/18 09/21/18 History lorazepam [Ativan] 1 mg IM Q10-15M PRN 08/21/18 09/21/18 History meclizine 25 mg PO TID 08/21/18 09/21/18 History modafinil 200 mg PO 0900 08/21/18 09/21/18 History multivitamin 1 tab PO DAILY 08/21/18 09/21/18 History olopatadine 1 drp OPHTHALMIC (EYE) BID 08/21/18 09/21/18 History ondansetron 4 mg PO QID PRN 08/21/18 09/21/18 History polyethylene glycol 3350 17 g PO BID PRN 08/21/18 09/21/18 History potassium chloride 10 meq PO BID 08/21/18 09/21/18 History prednisone 5 mg PO DAILY 08/21/18 09/21/18 History ranitidine HCl 150 mg PO BID 08/21/18 09/21/18 History rivaroxaban [Xarelto] 20 mg PO DAILY 08/21/18 09/21/18 History triamcinolone acetonide 1 applic TOPICAL BID 08/21/18 09/21/18 History clonidine HCl 0.1 mg PO BID 09/21/18 09/21/18 History mirtazapine 7.5 mg PO DAILY 09/21/18 09/21/18 History mupirocin 1 applic TOPICAL BID 09/21/18 09/21/18 History nicotine 1 patch TRANSDERMAL Q24H 09/21/18 09/21/18 History Active Medications: Active Medications Acetaminophen (Tylenol) 650 mg PO Q4H PRN PRN Reason: PAIN SCALE 1 TO 10 Albuterol (Ventolin Hfa Inh) 2 puff INH QID DOV Last Admin: 09/23/18 21:44 Dose: 2 puff Albuterol (Albuterol Neb (Dov)) 2.5 mg NEB QID NEB DOV Last Admin: 09/24/18 07:49 Dose: 2.5 mg Artificial Tears (Tears Naturale Opth Drops) 1 drop EACH EYE BID PRN PRN Reason: DRY EYE(S) Bisacodyl (Dulcolax Ec) 5 mg PO DAILY PENDING SALE TO [facility] Last Admin: 09/23/18 08:59 Dose: 5 mg Budesonide/Formoterol Fumarate (Symbicort 160/4.5 Mcg Inh) 2 puff INH BID PENDING SALE TO [facility] Last Admin: 09/23/18 21:44 Dose: 2 puff Bumetanide (Bumex) 2 mg PO DAILY PENDING SALE TO [facility] Last Admin: 09/23/18 09:00 Dose: 2 mg Calcium Carbonate (Oscal) 500 mg PO BID PENDING SALE TO [facility] Last Admin: 09/23/18 21:41 Dose: 500 mg Clonazepam (Klonopin) 0.5 mg PO BID PENDING SALE TO [facility] Last Admin: 09/23/18 21:51 Dose: 0.5 mg Clonidine HCl (Catapres) 0.1 mg PO BID PENDING SALE TO [facility] Last Admin: 09/23/18 21:40 Dose: 0.1 mg Docusate Sodium (Colace) 100 mg PO BID PENDING SALE TO [facility] Last Admin: 09/23/18 21:41 Dose: Not Given Duloxetine HCl (Cymbalta) 120 mg PO DAILY@2100 PENDING SALE TO [facility] Last Admin: 09/23/18 21:40 Dose: 120 mg Famotidine (Pepcid) 20 mg PO BID PENDING SALE TO [facility] Last Admin: 09/23/18 21:39 Dose: 20 mg Fluticasone Propionate (Flonase Nasal Walker) 1 spray EACH NARE DAILY PENDING SALE TO [facility] Last Admin: 09/23/18 11:29 Dose: 1 spray Glipizide (Glucotrol) 2.5 mg PO DAILYAC PENDING SALE TO [facility] Last Admin: 09/23/18 07:45 Dose: Not Given Glycopyrrolate (Robinul) 1 mg PO TID PENDING SALE TO [facility] Last Admin: 09/23/18 20:18 Dose: 1 mg Hydralazine HCl (Apresoline) 50 mg PO Q8HR PENDING SALE TO [facility] Last Admin: 09/24/18 05:17 Dose: 50 mg Sodium Chloride (Ns Inj) 1,000 mls @ 0 mls/hr IV.SIG BOLUS PENDING SALE TO [facility] Sodium Chloride (Ns Inj) 1,000 mls @ 84 mls/hr IV.CONT .[id number] PENDING SALE TO [facility] Last Admin: 09/24/18 05:19 Dose: 84 mls/hr Ceftriaxone Sodium 1,000 mg/ (Sodium Chloride) 100 mls @ 200 mls/hr IV.SIG Q24H PENDING SALE TO [facility] Last Infusion: 09/23/18 21:58 Dose: Infused Lacosamide (Vimpat) 200 mg PO BID PENDING SALE TO [facility] Last Admin: 09/23/18 21:39 Dose: 200 mg Levetiracetam (Keppra) 1,500 mg PO BID PENDING SALE TO [facility] Last Admin: 09/23/18 21:41 Dose: 1,500 mg Lisinopril (Prinivil) 5 mg PO DAILY PENDING SALE TO [facility] Last Admin: 09/23/18 08:58 Dose: 5 mg Meclizine HCl (Antivert) 25 mg PO TID PENDING SALE TO [facility] Last Admin: 09/23/18 20:18 Dose: 25 mg Mirtazapine (Remeron) 7.5 mg PO DAILY PENDING SALE TO [facility] Last Admin: 09/23/18 08:55 Dose: 7.5 mg Miscellaneous (Pill Splitter) 1 each OTHER UNSCH PRN PRN Reason: SEE LABEL COMMENTS Modafinil (Provigil) 200 mg PO DAILY@0900 PENDING SALE TO [facility] Last Admin: 09/23/18 13:50 Dose: 200 mg Multivitamins (Theragran) 1 tab PO DAILY PENDING SALE TO [facility] Last Admin: 09/23/18 08:59 Dose: 1 tab Mupirocin (Bactroban 2% Oint) 1 applicatio TOPICAL BID PENDING SALE TO [facility] Last Admin: 09/23/18 21:42 Dose: Not Given Olopatadine HCl (Patanol 0.1% Opth Drops) 1 drop EACH EYE BID PENDING SALE TO [facility] Last Admin: 09/23/18 21:43 Dose: 1 drop Ondansetron HCl (Zofran Odt) 4 mg PO QID PRN PRN Reason: Nausea Pt Own: Linzess (145mcg) 0 each PO DAILY PENDING SALE TO [facility] Polyethylene Glycol (Miralax) 17 gm PO BID PRN PRN Reason: Constipation Potassium Chloride (Klor-Con 10) 10 meq PO BID PENDING SALE TO [facility] Last Admin: 09/23/18 21:47 Dose: 10 meq Prednisone (Deltasone) 5 mg PO DAILY PENDING SALE TO [facility] Last Admin: 09/23/18 08:55 Dose: 5 mg Rivaroxaban (Xarelto) 20 mg PO DAILY PENDING SALE TO [facility] Last Admin: 09/23/18 09:12 Dose: 20 mg Sodium Chloride (Ns Flush) 2 ml IV.FLUSH BID PENDING SALE TO [facility] Last Admin: 09/23/18 21:43 Dose: 2 ml Sodium Chloride (Ns Flush) 2 ml IV.FLUSH PRN PRN PRN Reason: FLUSH AFTER USING IV ACCESS Throat Lozenges (Chloraseptic Walker) 2 spray OROPHARYNG Q2H PRN PRN Reason: SORE THROAT Exam Vital signs: Vital Signs 09/23/18 11:39 09/23/18 12:00 09/23/18 16:49 Temperature 97.7 F Pulse Rate 73 75 67 Respiratory Rate 22 20 18 Blood Pressure 116/56 L 102/57 L Pulse Oximetry 94 L 09/23/18 17:38 09/23/18 17:46 09/23/18 19:56 Temperature 99.0 F Pulse Rate 54 L 62 Respiratory Rate 22 16 Blood Pressure Pulse Oximetry 09/23/18 19:57 09/23/18 20:00 09/23/18 23:36 Temperature 97.4 F L Pulse Rate 94 H 67 Respiratory Rate 18 20 Blood Pressure 156/79 H 146/58 H Pulse Oximetry 92 L 90 L 95 09/24/18 04:26 09/24/18 07:49 09/24/18 08:00 Temperature 97.2 F L 97.4 F L Pulse Rate 62 62 64 Respiratory Rate 17 16 20 Blood Pressure 142/60 H 126/77 Pulse Oximetry 95 98 Intake & Output 09/23/18 09/24/18 09/24/18 18:59 06:59 18:59 Intake Total 1750 / 1750 Output Total 700 / 700 1949 Balance -700 / -700 -200 / -200 Intake: IV 1100 / 1100 NS Inj 1,000 ML @ 84 mls/hr IV. 1000 / 1000 CONT .[id number] Rx#:[id number] Rocephin Inj 1,000 MG In NS Inj 100 / 100 100 ML @ 200 mls/hr IV.SIG Q24H DOV Rx#:[id number] Oral 650 / 650 Output: Urine Amount (Catheter) 700 / 700 1949 Suprapubic 700 / 700 1949 Other: Date of Last Bowel Movement 09/23/18 Narrative: GENERAL: Alert SKIN: Warm and dry. NECK: Supple, trachea midline. No JVD or lymphadenopathy. CARDIOVASCULAR: Regular rate and rhythm without murmurs, gallops, or rubs. RESPIRATORY: Breath sounds equal bilaterally. No accessory muscle use. GASTROINTESTINAL: Abdomen soft, non-tender, nondistended. GENITOURINARY: supra pubic catheter with dark colored urine. MUSCULOSKELETAL: No cyanosis, or edema. BACK: Nontender without obvious deformity. No CVA tenderness. Results - Lab Results 09/24/18 03:27 09/24/18 03:27 Most recent lab results ABG pH 7.39 (7.380-7.420) 09/23/18 17:00 ABG pCO2 44 mmHg (38-42) H 09/23/18 17:00 ABG pO2 57 mmHg (61-120) L* 09/23/18 17:00 ABG HCO3 26 mmol/L (22-26) 09/23/18 17:00 Calcium 9.1 mg/dL (8.5-10.1) 09/24/18 03:27 Magnesium 2.1 mg/dL (1.5-2.5) 09/21/18 18:38 - Image Kidney/bladder ultrasound: pending Assessment and Plan - Assessment (1) Acute kidney injury Code(s): N17.9 - Acute kidney failure, unspecified Status: Acute Plan: Acute kidney injury with oliguria a creatinine at 1.49 which has increase from 1.20 on previous day. Potassium level is normal and patient is not acidotic. Baseline creatinine is less than 1 in July 2018. Acute kidney injury possibly prerenal vs ATN from poor intake or infection. Has suprapubic catheter and urinary output is now adequate at 2.6 L/24 hours. Urinalysis positive for MRSA. Agree with continuing IVF as long as patient tolerates, oral fluids encouraged. Avoid nephrotoxins. Renal ultrasound and urine studies ordered. Will put ROXANNE inhibitor on hold can be restarted at later date. Will follow BMP. (2) Acute UTI Code(s): N39.0 - Urinary tract infection, site not specified Status: Acute Plan: MRSA UTI Currently on Rocephin but sensitivity is resistant. Recommend Zyvox. (3) Bipolar 1 disorder Code(s): F31.9 - Bipolar disorder, unspecified Status: Acute Plan: Psych is consulted. <Usman Medrano - Last Filed: 09/26/18 18:13> History of Present Illness Primary Care Provider: UNKNOWN [facility] - Medical History Medical History: Medical History (Last Reviewed 09/22/18 @ 15:52 by Riki Vázquez MD) Suprapubic catheter (Acute) GERD (gastroesophageal reflux disease) (Acute) Bipolar 1 disorder (Acute) Edema (Acute) Anxiety (Acute) Unstable angina (Acute) Osteoporosis (Acute) COPD (chronic obstructive pulmonary disease) (Acute) Heart failure (Acute) Narcolepsy (Acute) Encephalopathy (Acute) Bladder neck obstruction Constipation Dermatitis Diabetes 1.5, managed as type 2 Dietary calcium deficiency Dry eye syndrome Fibromyalgia Hypertension Hypokalemia Irritable bowel disease PTSD (post-traumatic stress disorder) Pacemaker Peptic ulcer disease Pruritic condition Seasonal allergic rhinitis Vertigo Medications and Allergies Active Medications: Active Medications Acetaminophen (Tylenol) 650 mg PO Q4H PRN PRN Reason: PAIN SCALE 1 TO 10 Albuterol (Ventolin Hfa Inh) 2 puff INH QID PRN PRN Reason: DYSPNEA Artificial Tears (Tears Naturale Opth Drops) 1 drop EACH EYE BID PRN PRN Reason: DRY EYE(S) Benzonatate (Tessalon Perles) 200 mg PO Q8H PRN PRN Reason: COUGH Last Admin: 09/26/18 02:15 Dose: 200 mg Bisacodyl (Dulcolax Ec) 5 mg PO DAILY PENDING SALE TO [facility] Last Admin: 09/26/18 11:52 Dose: Not Given Budesonide/Formoterol Fumarate (Symbicort 160/4.5 Mcg Inh) 2 puff INH BID PENDING SALE TO [facility] Last Admin: 09/26/18 11:53 Dose: Not Given Bumetanide (Bumex) 2 mg PO DAILY PENDING SALE TO [facility] Last Admin: 09/24/18 09:48 Dose: Not Given Calcium Carbonate (Oscal) 500 mg PO BID PENDING SALE TO [facility] Last Admin: 09/26/18 11:53 Dose: Not Given Clonazepam (Klonopin) 0.5 mg PO BID PENDING SALE TO [facility] Last Admin: 09/26/18 11:53 Dose: Not Given Clonidine HCl (Catapres) 0.1 mg PO BID PENDING SALE TO [facility] Last Admin: 09/26/18 11:52 Dose: Not Given Docusate Sodium (Colace) 100 mg PO BID PENDING SALE TO [facility] Last Admin: 09/26/18 11:52 Dose: Not Given Doxycycline Hyclate (Vibratab) 100 mg PO Q12HR PENDING SALE TO [facility] Last Admin: 09/26/18 11:54 Dose: Not Given Duloxetine HCl (Cymbalta) 120 mg PO DAILY@2100 PENDING SALE TO [facility] Last Admin: 09/25/18 23:04 Dose: Not Given Famotidine (Pepcid) 10 mg PO BID PENDING SALE TO [facility] Last Admin: 09/26/18 11:53 Dose: Not Given Fluticasone Propionate (Flonase Nasal Walker) 1 spray EACH NARE DAILY PENDING SALE TO [facility] Last Admin: 09/26/18 11:52 Dose: Not Given Glipizide (Glucotrol) 2.5 mg PO DAILYAC PENDING SALE TO [facility] Last Admin: 09/26/18 08:09 Dose: Not Given Glycopyrrolate (Robinul) 1 mg PO TID PENDING SALE TO [facility] Last Admin: 09/26/18 18:07 Dose: 1 mg Guaifenesin/Dextromethorphan (Robitussin Dm 200/20 Mg/10 Ml Liq) 10 ml PO Q4H PRN PRN Reason: congestion Last Admin: 09/26/18 02:16 Dose: 10 ml Hydralazine HCl (Apresoline) 10 mg PO QID PRN PRN Reason: sbp> 180 Hydralazine HCl (Apresoline) 100 mg PO TID PENDING SALE TO [facility] Last Admin: 09/26/18 18:07 Dose: 100 mg Sodium Chloride (Ns Inj) 1,000 mls @ 0 mls/hr IV.SIG BOLUS PENDING SALE TO [facility] Lacosamide (Vimpat) 200 mg PO BID PENDING SALE TO [facility] Last Admin: 09/26/18 11:54 Dose: Not Given Levetiracetam (Keppra) 1,500 mg PO BID PENDING SALE TO [facility] Last Admin: 09/26/18 11:52 Dose: Not Given Lorazepam (Ativan Inj) 2 mg IV.PUSH Q10M PRN PRN Reason: SEE LABEL COMMENTS Last Admin: 09/26/18 06:50 Dose: 2 mg Meclizine HCl (Antivert) 25 mg PO TID PENDING SALE TO [facility] Last Admin: 09/26/18 18:06 Dose: 25 mg Mirtazapine (Remeron) 7.5 mg PO DAILY PENDING SALE TO [facility] Last Admin: 09/26/18 11:53 Dose: Not Given Miscellaneous (Pill Splitter) 1 each OTHER UNSCH PRN PRN Reason: SEE LABEL COMMENTS Modafinil (Provigil) 200 mg PO DAILY@0900 PENDING SALE TO [facility] Last Admin: 09/26/18 11:53 Dose: Not Given Multivitamins (Theragran) 1 tab PO DAILY PENDING SALE TO [facility] Last Admin: 09/26/18 11:54 Dose: Not Given Mupirocin (Bactroban 2% Oint) 1 applicatio TOPICAL BID PENDING SALE TO [facility] Last Admin: 09/26/18 11:52 Dose: Not Given Olopatadine HCl (Patanol 0.1% Opth Drops) 1 drop EACH EYE BID PENDING SALE TO [facility] Last Admin: 09/26/18 11:53 Dose: Not Given Ondansetron HCl (Zofran Odt) 4 mg PO QID PRN PRN Reason: Nausea Pt Own: Linzess (145mcg) 0 each PO DAILY PENDING SALE TO [facility] Polyethylene Glycol (Miralax) 17 gm PO BID PRN PRN Reason: Constipation Potassium Chloride (Klor-Con 10) 10 meq PO BID PENDING SALE TO [facility] Last Admin: 09/26/18 11:53 Dose: Not Given Prednisone (Deltasone) 5 mg PO DAILY PENDING SALE TO [facility] Last Admin: 09/26/18 11:52 Dose: Not Given Rivaroxaban (Xarelto) 20 mg PO DAILY PENDING SALE TO [facility] Last Admin: 09/26/18 11:54 Dose: Not Given Sodium Chloride (Ns Flush) 2 ml IV.FLUSH BID PENDING SALE TO [facility] Last Admin: 09/26/18 11:53 Dose: Not Given Sodium Chloride (Ns Flush) 2 ml IV.FLUSH PRN PRN PRN Reason: FLUSH AFTER USING IV ACCESS Throat Lozenges (Chloraseptic Walker) 2 spray OROPHARYNG Q2H PRN PRN Reason: SORE THROAT Last Admin: 09/24/18 13:34 Dose: 2 spray Exam Vital signs: Vital Signs 09/25/18 20:00 09/25/18 21:29 09/26/18 00:00 Temperature 98.7 F 97.7 F Pulse Rate 60 56 L 65 Respiratory Rate 16 17 17 Blood Pressure 116/59 L 109/58 L Pulse Oximetry 94 L 97 96 09/26/18 08:00 09/26/18 09:09 09/26/18 09:10 Temperature 98.0 F Pulse Rate 63 63 Respiratory Rate 18 20 Blood Pressure 153/70 H Pulse Oximetry 92 L 92 L 09/26/18 12:00 09/26/18 12:26 09/26/18 15:34 Temperature 98.0 F Pulse Rate 63 60 61 Respiratory Rate 17 20 20 Blood Pressure 98/53 L Pulse Oximetry 91 L 09/26/18 16:00 Temperature 97.4 F L Pulse Rate 69 Respiratory Rate 16 Blood Pressure 132/68 Pulse Oximetry 97 Intake & Output 09/25/18 09/26/18 09/26/18 18:59 06:59 18:59 Intake Total 2350 / 2350 100 / 100 Output Total 1600 / 1600 Balance 750 / 750 100 / 100 Intake: IV 750 / 750 100 / 100 NS Inj 1,000 ML @ 84 mls/hr IV. 750 / 750 CONT .[id number] PENDING SALE TO [facility] Rx#:[id number] Keppra 1000 mg/100 mL Premix 100 / 100 100 ML @ 400 mls/hr IV.SIG ONCE ONE Rx#:[id number] Oral 1600 / 1600 Output: Urine Amount (Catheter) 1600 / 1600 Suprapubic 1600 / 1600 Other: Date of Last Bowel Movement 09/23/18 09/23/18 Results - Lab Results 09/24/18 03:27 09/26/18 07:19 Most recent lab results ABG pH 7.42 (7.380-7.420) 09/26/18 15:36 ABG pCO2 46 mmHg (38-42) H 09/26/18 15:36 ABG pO2 65 mmHg (61-120) 09/26/18 15:36 ABG HCO3 29 mmol/L (22-26) H 09/26/18 15:36 Calcium 9.1 mg/dL (8.5-10.1) 09/26/18 07:19 Magnesium 2.1 mg/dL (1.5-2.5) 09/21/18 18:38 Assessment and Plan - Assessment (1) Acute kidney injury Code(s): N17.9 - Acute kidney failure, unspecified Status: Acute Plan: Patient seen and examine, agree with above. Patient develop CONSUELO, Most likely has pre renal. Start IVF, follow the work up as above. (2) Acute UTI Code(s): N39.0 - Urinary tract infection, site not specified Status: Acute (3) Bipolar 1 disorder Code(s): F31.9 - Bipolar disorder, unspecified Status: Acute (4) Hypertension Code(s): I10 - Essential (primary) hypertension Status: Acute
[2018-09-24] MEDS: Lisinopril 5 MG Tablet PO SCH (09:48)
[2018-09-24] MEDS: levETIRAcetam 500 MG Tablet PO SCH ×2 (10:04→21:48)
[2018-09-24] MEDS: glipiZIDE 5 MG Tablet PO SCH (10:04)
[2018-09-24] MEDS: Lacosamide 100 MG Tablet PO SCH ×2 (10:05→21:51)
[2018-09-24] MEDS: Calcium Carbonate 500 MG Tablet PO SCH ×2 (10:06→21:48)
[2018-09-24] MEDS: Budesonide-Formoterol 160/4.5 MCG 6 GM Inhaler INH SCH ×2 (10:06→21:49)
[2018-09-24] MEDS: Rivaroxaban 20 MG Tablet PO SCH (10:06)
[2018-09-24] MEDS: Famotidine 20 MG Tablet PO SCH ×2 (10:06→21:49)
[2018-09-24] MEDS: Modafinil 200 MG Tablet PO SCH (10:06)
[2018-09-24] MEDS: clonazePAM 0.5 MG Tablet PO SCH ×2 (10:07→21:48)
[2018-09-24] MEDS: predniSONE 5 MG Tablet PO SCH (10:07)
[2018-09-24] MEDS: Mirtazapine 15 MG Tablet PO SCH (10:07)
[2018-09-24] MEDS: Olopatadine 0.1% Opth Drops 5 ML Bottle EACH EYE SCH ×2 (10:08→21:49)
[2018-09-24] MEDS: Docusate Sodium 100 MG Capsule PO SCH ×2 (10:08→21:49)
[2018-09-24] MEDS: Sodium Chloride 0.9% 2 ML Flush BID IV.FLUSH SCH ×2 (10:08→21:49)
--- NOTE | 2018-09-24 11:21 | P.PN ---
Subjective Interval history: Urine output better with IVF Cr worsened than baseline, continue to monitor Plan for UD kidney Patient with narcolepsy She is pleasant , awake and alert and conversant at this time. Patient says she feels better today. Has soere throat and did not received meds yet for sore throat No fever or chills Sattign well n 2L NC , doesn't have O2 at home. Physical Exam Vital signs: Vital Signs 09/23/18 11:39 09/23/18 12:00 09/23/18 16:49 Temperature 97.7 F Pulse Rate 73 75 67 Respiratory Rate 22 20 18 Blood Pressure 116/56 L 102/57 L Pulse Oximetry 94 L 09/23/18 17:38 09/23/18 17:46 09/23/18 19:56 Temperature 99.0 F Pulse Rate 54 L 62 Respiratory Rate 22 16 Blood Pressure Pulse Oximetry 09/23/18 19:57 09/23/18 20:00 09/23/18 23:36 Temperature 97.4 F L Pulse Rate 94 H 67 Respiratory Rate 18 20 Blood Pressure 156/79 H 146/58 H Pulse Oximetry 92 L 90 L 95 09/24/18 04:26 09/24/18 07:49 09/24/18 08:00 Temperature 97.2 F L 97.4 F L Pulse Rate 62 62 64 Respiratory Rate 17 16 20 Blood Pressure 142/60 H 126/77 Pulse Oximetry 95 98 Intake & Output 09/23/18 09/24/18 09/24/18 18:59 06:59 18:59 Intake Total 1750 / 1750 Output Total 700 / 700 1949 Balance -700 / -700 -200 / -200 Intake: IV 1100 / 1100 NS Inj 1,000 ML @ 84 mls/hr IV. 1000 / 1000 CONT .[id number] [facility] Rx#:[id number] Rocephin Inj 1,000 MG In NS Inj 100 / 100 100 ML @ 200 mls/hr IV.SIG Q24H [facility] Rx#:[id number] Oral 650 / 650 Output: Urine Amount (Catheter) 700 / 700 1949 Suprapubic 700 / 700 1949 Other: Date of Last Bowel Movement 09/23/18 Narrative: GENERAL: Obese 63 yo F, awake and alert. CARDIOVASCULAR: Regular rate and rhythm without murmurs, gallops, or rubs. RESPIRATORY: Breath sounds equal bilaterally. No accessory muscle use. GASTROINTESTINAL: Abdomen soft, non-tender, nondistended. GENITOURINARY: Supra pubic catheter with dark colored urine. MUSCULOSKELETAL: No cyanosis, or edema. BACK: Nontender without obvious deformity. No CVA tenderness. - Urinary Catheter Management Suprapubic Cath placed during this visit: no Results - Labs CBC & Chem 7: 09/24/18 03:27 09/24/18 03:27 Laboratory Results - last 24 hr 09/21/18 09/23/18 09/23/18 20:10 13:48 17:00 WBC RBC Hgb Hct MCV MCH MCHC RDW Plt Count MPV Neut % (Auto) Lymph % (Auto) [place] % (Auto) Eos % (Auto) Baso % (Auto) Neut # (Auto) Lymph # (Auto) [place] # (Auto) Eos # (Auto) Baso # (Auto) WBC Differential Differential Comment Puncture Site Right radial Patient Temperature 98.6 O2 Saturation 85 L* ABG pH 7.39 ABG pCO2 44 H ABG pO2 57 L* ABG HCO3 26 ABG O2 Content 15.6 ABG Base Excess 1.5 ABG Methemoglobin 0.7 Christiano Test Present Hemoglobin 13.0 Carboxyhemoglobin 1.5 O2 Delivery Device N Inspired O2 21 Critical Value Yes Sodium Potassium Chloride Carbon Dioxide Anion Gap BUN Creatinine Estimated GFR POC Glucose 158 H Random Glucose Calcium Total Bilirubin AST ALT Alkaline Phosphatase Total Protein Albumin Urine Color Yellow Urine Clarity Cloudy H Urine pH 5.0 Ur Specific [place] 1.017 Urine Protein 100 H Urine Glucose (UA) 50 Urine Ketones Negative Urine Occult Blood Moderate H Urine Nitrate Positive H Urine Bilirubin Negative Urine Urobilinogen Less than 2 Ur Leukocyte Esterase Moderate H Urine RBC 67 H Urine WBC 124 H Ur Renal Epithelial Cell <1 Urine Bacteria Many H Urine Mucus Few H Micro UA Comment Culture indicated Urine Culture Comments Culture indicated 09/23/18 09/23/18 09/24/18 18:02 18:02 03:27 WBC 9.9 6.7 RBC 4.92 4.49 Hgb 13.4 12.3 Hct 40.5 37.3 MCV 82.4 83.0 MCH 27.4 27.4 MCHC 33.2 33.0 RDW 15.9 16.0 Plt Count 197 162 MPV 9.1 9.0 Neut % (Auto) 71.5 H 59.4 Lymph % (Auto) 17.8 25.3 Hendry % (Auto) 9.5 H 12.4 H Eos % (Auto) 0.7 2.4 Baso % (Auto) 0.5 0.5 Neut # (Auto) 7.1 4.0 Lymph # (Auto) 1.8 1.7 Hendry # (Auto) 0.9 0.8 Eos # (Auto) 0.1 0.2 Baso # (Auto) 0.0 0.0 WBC Differential . . Differential Comment Auto diff final Auto diff final Puncture Site Patient Temperature O2 Saturation ABG pH ABG pCO2 ABG pO2 ABG HCO3 ABG O2 Content ABG Base Excess ABG Methemoglobin Christiano Test Hemoglobin Carboxyhemoglobin O2 Delivery Device Inspired O2 Critical Value Sodium 137 Potassium 4.2 Chloride 103 Carbon Dioxide 27.2 Anion Gap 7 BUN 18 Creatinine 1.20 H Estimated GFR 46 L POC Glucose Random Glucose 114 H Calcium 9.5 Total Bilirubin 0.3 AST 13 L ALT 23 Alkaline Phosphatase 125 H Total Protein 7.4 Albumin 3.6 Urine Color Urine Clarity Urine pH Ur Specific [place] Urine Protein Urine Glucose (UA) Urine Ketones Urine Occult Blood Urine Nitrate Urine Bilirubin Urine Urobilinogen Ur Leukocyte Esterase Urine RBC Urine WBC Ur Renal Epithelial Cell Urine Bacteria Urine Mucus Micro UA Comment Urine Culture Comments 09/24/18 09/24/18 03:27 08:05 WBC RBC Hgb Hct MCV MCH MCHC RDW Plt Count MPV Neut % (Auto) Lymph % (Auto) [place] % (Auto) Eos % (Auto) Baso % (Auto) Neut # (Auto) Lymph # (Auto) [place] # (Auto) Eos # (Auto) Baso # (Auto) WBC Differential Differential Comment Puncture Site Patient Temperature O2 Saturation ABG pH ABG pCO2 ABG pO2 ABG HCO3 ABG O2 Content ABG Base Excess ABG Methemoglobin Christiano Test Hemoglobin Carboxyhemoglobin O2 Delivery Device Inspired O2 Critical Value Sodium 139 Potassium 4.0 Chloride 104 Carbon Dioxide 27.7 Anion Gap 7 BUN 24 H Creatinine 1.49 H Estimated GFR 35 L POC Glucose 195 H Random Glucose 140 H Calcium 9.1 Total Bilirubin AST ALT Alkaline Phosphatase Total Protein Albumin Urine Color Urine Clarity Urine pH Ur Specific [place] Urine Protein Urine Glucose (UA) Urine Ketones Urine Occult Blood Urine Nitrate Urine Bilirubin Urine Urobilinogen Ur Leukocyte Esterase Urine RBC Urine WBC Ur Renal Epithelial Cell Urine Bacteria Urine Mucus Micro UA Comment Urine Culture Comments Microbiology 09/21/18 20:10 Clean Catch Urine Urine Culture - Final S. aureus MRSA - Imaging Impressions Chest X-Ray 09/23/18 00:00 CONCLUSION: No acute cardiopulmonary disease. Assessment and Plan - Plan 63-year-old female with multiple medical problems including diabetes, hypertension, bipolar disorder brought in to the emergency room under Elliott act. The patient was seen by psychiatry and medically cleared by ED physician but her facility will not accept her back. Patient will be in an outpatient bed with no observation services while case management fine alternative placement. However patient with UTI start IV abx Rocephyn IV monitor urine cultures until final UTI with indwelling catheter - suprapubic catheter UA reviewed. Ucx are pending - The patient was found to have urinalysis suggestive of a UTI. DC bactrim , started on Rocephin IV abx CONSUELO with oliguria, has suprapubic cath. Also complicated UTI. Noted with low urine OP received IVF 1L NS and started IVF NS at 83cc/hr. Admitted inpatient Nephrology consulted and ff, appreciate recommendations. Hold lisinopril as with CONSUELO Avoid nephrotoxins Monitor kidney indices Further work up labs and renal US pending Psychosis and narcolepsy. Continue home meds Sore throat. Give prn Chlorasept spray -Continue all the patient's home medications as indicated. Hold lisinopril as noted CONSUELO.
[2018-09-24 12:05] LABS: Creatinine,Urine Random 117 mg/dL (27-300)
[2018-09-24] MEDS ORDERED: hydrALAZINE 10 MG Tablet PO PRN (15:26)
--- NOTE | 2018-09-24 16:28 | US ---
EXAM DATE: 09/24/2018 4:25 PM EDT AGE/SEX: 63 years / Female INDICATIONS: Increased Bun and Creatinine. CLINICAL DATA: This is the patient's initial encounter. Patient reports that signs and symptoms have been present for 1 day and indicates a pain score of 0/10. MEDICAL/SURGICAL HISTORY: . Bipolar. Bladder neck obstruction. COPD. Diabetic. Encephalopat hy. Fibromyalgia. GERD. Hear failure. HTN. Hypokalemia. IBS. Narcolepsy. PTSD. Vertigo. . S uprapubic catheter. Pacemaker. COMPARISON: [facility] [place], CT ABDOMEN & PELVIS W/O CONTRAST, 08/21/2018. . MEASUREMENTS: Right Kidney:__10.5 x 5.8 x 5.0 cm Left Kidney:__11.0 x 4.9 x 5.2 cm FINDINGS: Right Kidney: Increased echotexture. No mass or hydronephrosis. Left Kidney: 2.6 cm cyst upper pole left kidney similar to the previous CT scan. No evidence of hydro nephrosis. Bladder: Within normal limits given the degree of distension. Other: None. CONCLUSION: 1. Left renal cyst otherwise unremarkable renal ultrasound. No evidence of hydronephrosis or obstruc tion. Electronically signed by: Jose Mcmahon MD 09/24/2018 4:27 PM EDT
--- NOTE | 2018-09-24 17:42 | MG ---
cc: Rubens Alvares MD EEG NUMBER: [id number] INDICATION: A 63-year-old Elliott Acted suicidal ideation. CURRENT MEDICATIONS: 1. Keppra. 2. Xarelto. 3. Vimpat. FINDINGS: 7 Hz diffuse slowing is seen, but it was intermixed in the beginning. Appears to be some sleep spindles which are synchronous and symmetric. Some snoring is noted. No hemisphere asymmetries are seen. Bifrontal muscle artifact is noted. He continues into some stage II sleep. Photic stimulation is performed without significant posterior driving. Hyperventilation not performed. IMPRESSION: Normal primarily stage II sleep electroencephalogram. Some mild diffuse theta slowing seen, but otherwise no abnormalities. No focal abnormalities. No seizure activity. MD RUFINO Martin/cherry , 03:42 PM , 03:46 PM
[2018-09-24] MEDS: Duloxetine 60 MG DR Capsule PO SCH (21:48)
[2018-09-25] MEDS: glipiZIDE 5 MG Tablet PO SCH (05:59)
[2018-09-25] MEDS: hydrALAZINE 50 MG Tablet PO SCH (05:59)
[2018-09-25] MEDS: Sod Chloride 0.9% Inj 1,000 ML IV.CONT SCH (06:01)
[2018-09-25] MEDS: Famotidine 20 MG Tablet PO SCH ×2 (09:08→23:05)
[2018-09-25] MEDS: Lacosamide 100 MG Tablet PO SCH ×2 (09:09→23:05)
[2018-09-25] MEDS: Docusate Sodium 100 MG Capsule PO SCH ×2 (09:09→23:03)
[2018-09-25] MEDS: clonazePAM 0.5 MG Tablet PO SCH ×2 (09:09→23:04)
[2018-09-25] MEDS: Modafinil 200 MG Tablet PO SCH (09:09)
[2018-09-25] MEDS: levETIRAcetam 500 MG Tablet PO SCH ×2 (09:09→23:04)
[2018-09-25] MEDS: Rivaroxaban 20 MG Tablet PO SCH (09:09)
[2018-09-25] MEDS: Calcium Carbonate 500 MG Tablet PO SCH ×2 (09:09→23:05)
[2018-09-25] MEDS: predniSONE 5 MG Tablet PO SCH (09:09)
[2018-09-25] MEDS: Mirtazapine 15 MG Tablet PO SCH (09:10)
[2018-09-25] MEDS: Sodium Chloride 0.9% 2 ML Flush BID IV.FLUSH SCH ×2 (09:10→23:04)
[2018-09-25] MEDS: Budesonide-Formoterol 160/4.5 MCG 6 GM Inhaler INH SCH ×2 (09:11→23:05)
[2018-09-25] MEDS: Olopatadine 0.1% Opth Drops 5 ML Bottle EACH EYE SCH ×2 (09:11→23:05)
--- NOTE | 2018-09-25 09:17 | P.PNNP ---
Subjective Interval history: No acute events overnight. Mild shortness of breath, denies any nausea, vomiting, or diarrhea. <Mahnaz Rodriguez - Last Filed: 09/25/18 09:05> Physical Exam Vital signs: Vital Signs 09/24/18 10:00 09/24/18 12:00 09/24/18 13:12 Temperature 97.7 F Pulse Rate 77 75 Respiratory Rate 20 16 Blood Pressure 183/83 H Pulse Oximetry 98 98 09/24/18 15:34 09/24/18 20:00 09/25/18 00:00 Temperature 98.4 F 98.4 F 98.3 F Pulse Rate 73 64 67 Respiratory Rate 16 20 18 Blood Pressure 201/115 H 147/80 H 150/76 H Pulse Oximetry 96 97 95 09/25/18 07:55 Temperature Pulse Rate 60 Respiratory Rate 16 Blood Pressure Pulse Oximetry 99 Intake & Output 09/24/18 09/25/18 09/25/18 18:59 06:59 18:59 Intake Total 2038 / 2038 1380 / 1380 Output Total 805 / 805 2300 / 2300 Balance 1233 / 1233 -920 / -920 Weight 99 kg Intake: IV 1082 / 1082 1000 / 1000 NS Inj 1,000 ML @ 84 mls/hr IV. 982 / 982 1000 / 1000 CONT .[id number] [facility] Rx#:[id number] Rocephin Inj 1,000 MG In NS Inj 100 / 100 100 ML @ 200 mls/hr IV.SIG Q24H NICK Rx#:[id number] Oral 956 / 956 380 / 380 Output: Urine Amount (Catheter) 805 / 805 2300 / 2300 Suprapubic 805 / 805 2300 / 2300 Other: Date of Last Bowel Movement 09/23/18 09/23/18 # Bowel Movements 1 Narrative: GENERAL: alert in no obvious signs of distress CARDIOVASCULAR: Regular rate and rhythm without murmurs, gallops, or rubs. RESPIRATORY: Breath sounds equal bilaterally. No accessory muscle use. GASTROINTESTINAL: Abdomen soft, non-tender, nondistended. GENITOURINARY: Supra pubic catheter with dark colored urine. MUSCULOSKELETAL: No cyanosis, or edema. BACK: Nontender without obvious deformity. No CVA tenderness. - Urinary Catheter Management Suprapubic Cath placed during this visit: no <Mahnaz Rodriguez - Last Filed: 09/25/18 09:05> Vital signs: Vital Signs 09/25/18 20:00 09/25/18 21:29 09/26/18 00:00 Temperature 98.7 F 97.7 F Pulse Rate 60 56 L 65 Respiratory Rate 16 17 17 Blood Pressure 116/59 L 109/58 L Pulse Oximetry 94 L 97 96 09/26/18 08:00 09/26/18 09:09 09/26/18 09:10 Temperature 98.0 F Pulse Rate 63 63 Respiratory Rate 18 20 Blood Pressure 153/70 H Pulse Oximetry 92 L 92 L 09/26/18 12:00 09/26/18 12:26 09/26/18 15:34 Temperature 98.0 F Pulse Rate 63 60 61 Respiratory Rate 17 20 20 Blood Pressure 98/53 L Pulse Oximetry 91 L 09/26/18 16:00 Temperature 97.4 F L Pulse Rate 69 Respiratory Rate 16 Blood Pressure 132/68 Pulse Oximetry 97 Intake & Output 09/25/18 09/26/18 09/26/18 18:59 06:59 18:59 Intake Total 2350 / 2350 100 / 100 Output Total 1600 / 1600 Balance 750 / 750 100 / 100 Intake: IV 750 / 750 100 / 100 NS Inj 1,000 ML @ 84 mls/hr IV. 750 / 750 CONT .[id number] [facility] Rx#:[id number] Keppra 1000 mg/100 mL Premix 100 / 100 100 ML @ 400 mls/hr IV.SIG ONCE ONE Rx#:[id number] Oral 1600 / 1600 Output: Urine Amount (Catheter) 1600 / 1600 Suprapubic 1600 / 1600 Other: Date of Last Bowel Movement 09/23/18 09/23/18 - Urinary Catheter Management Suprapubic Cath placed during this visit: no <Usman Medrano - Last Filed: 09/26/18 18:14> Assessment and Plan - Assessment (1) Acute kidney injury Code(s): N17.9 - Acute kidney failure, unspecified Status: Acute Plan: Acute kidney injury most likely prerenal with FeNa fo 0.38% from poor intake. Baseline creatinine is less than 1 in July 2018. Has suprapubic catheter and urinary output is now adequate. Urinalysis positive MRSA. Will discontinue IVF as patient is taking in good oral fluids. Avoid nephrotoxins. Renal ultrasound with no acute findings. Continue to hold ROXANNE inhibitor can be restarted at later date. Will also hold bumex for today. Will follow BMP labs pending for today. (2) Acute UTI Code(s): N39.0 - Urinary tract infection, site not specified Status: Acute Plan: MRSA UTI (3) Bipolar 1 disorder Code(s): F31.9 - Bipolar disorder, unspecified Status: Acute Plan: Psych is consulted. (4) Hypertension Code(s): I10 - Essential (primary) hypertension Status: Acute Plan: Hypertensive, on clonidine and hydralazine. Hydralazine increased. <Mahnaz Rodriguez - Last Filed: 09/25/18 09:05> - Assessment (1) Acute kidney injury Code(s): N17.9 - Acute kidney failure, unspecified Status: Acute Plan: Patient seen and examine, agree with above. Creatinine is improving. Continue IVF and encourage oral intake. Avoid Nephrotoxins. (2) Acute UTI Code(s): N39.0 - Urinary tract infection, site not specified Status: Acute (3) Bipolar 1 disorder Code(s): F31.9 - Bipolar disorder, unspecified Status: Acute (4) Hypertension Code(s): I10 - Essential (primary) hypertension Status: Acute <Usman Medrano - Last Filed: 09/26/18 18:14>
[2018-09-25 09:46] LABS: Calcium 8.8 mg/dL (8.5-10.1)
--- NOTE | 2018-09-25 13:01 | P.PNIM ---
Subjective Interval history: The pt was complaining of congestion and cough. She said that she recently had an x ray. She says she gets her suprapubic catheter changed once a month. She says she is due to have it changed this week. She requests cough medication. Physical Exam Vital signs: Vital Signs 09/24/18 13:12 09/24/18 15:34 09/24/18 20:00 Temperature 98.4 F 98.4 F Pulse Rate 75 73 64 Respiratory Rate 16 16 20 Blood Pressure 201/115 H 147/80 H Pulse Oximetry 96 97 09/25/18 00:00 09/25/18 07:55 09/25/18 08:00 Temperature 98.3 F 97.2 F L Pulse Rate 67 60 64 Respiratory Rate 18 16 20 Blood Pressure 150/76 H 168/61 H Pulse Oximetry 95 99 99 09/25/18 12:00 09/25/18 12:11 Temperature 98.0 F Pulse Rate 61 63 Respiratory Rate 16 16 Blood Pressure 146/76 H Pulse Oximetry 97 Intake & Output 09/24/18 09/25/18 09/25/18 18:59 06:59 18:59 Intake Total 2038 / 2038 1380 / 1380 750 / 750 Output Total 805 / 805 2300 / 2300 Balance 1233 / 1233 -920 / -920 750 / 750 Weight 99 kg Intake: IV 1082 / 1082 1000 / 1000 750 / 750 NS Inj 1,000 ML @ 84 mls/hr IV. 982 / 982 1000 / 1000 750 / 750 CONT .[id number] [facility] Rx#:[id number] Rocephin Inj 1,000 MG In NS Inj 100 / 100 100 ML @ 200 mls/hr IV.SIG Q24H [facility] Rx#:[id number] Oral 956 / 956 380 / 380 Output: Urine Amount (Catheter) 805 / 805 2300 / 2300 Suprapubic 805 / 805 2300 / 2300 Other: Date of Last Bowel Movement 09/23/18 09/23/18 09/23/18 # Bowel Movements 1 Narrative: GENERAL: No distress. HEENT: NC, AT. CARDIOVASCULAR: Regular rate and rhythm without murmurs, gallops, or rubs. RESPIRATORY: Breath sounds equal bilaterally. No accessory muscle use. GASTROINTESTINAL: Abdomen soft, non-tender, nondistended. GENITOURINARY: Suprapubic catheter in place. MUSCULOSKELETAL: No cyanosis, or edema. BACK: Nontender without obvious deformity. No CVA tenderness. NEURO: No gross deficits. - Urinary Catheter Management Suprapubic Cath placed during this visit: no Results - Labs CBC & Chem 7: 09/24/18 03:27 09/25/18 07:40 Laboratory Results - last 24 hr 09/24/18 09/25/18 13:23 07:40 Sodium 139 Potassium 5.0 D Chloride 107 Carbon Dioxide 27.0 Anion Gap 5 BUN 16 Creatinine 0.79 Estimated GFR 74 L POC Glucose 110 Random Glucose 119 H Calcium 8.8 Microbiology 09/21/18 20:10 Clean Catch Urine Urine Culture - Final S. aureus MRSA - Imaging Impressions Abdomen/Bladder Ultrasound 09/24/18 00:00 CONCLUSION: 1. Left renal cyst otherwise unremarkable renal ultrasound. No evidence of hydronephrosis or obstruction. Assessment and Plan - Plan 63-year-old female with multiple medical problems including diabetes, hypertension, bipolar disorder brought in to the emergency room under Elliott act. The patient was seen by psychiatry and medically cleared by ED physician but her facility will not accept her back. Patient will be in an outpatient bed with no observation services while case management fine alternative placement. However patient with UTI start IV abx Rocephyn IV monitor urine cultures until final UTI with indwelling catheter - suprapubic catheter Ucx with MRSA. -change antibiotics to doxycycline PO per sensitivities. -will arrange to have suprapubic catheter changed as it is due. CONSUELO with oliguria, has suprapubic cath. Also complicated UTI. Noted with low urine OP. Nephrology consulted, appreciate recommendations. -Hold lisinopril as with CONSUELO. -Avoid nephrotoxins. -Monitor kidney indices and follow up with nephrology. -encourage PO fluid intake. Psychosis and narcolepsy Stable. -Continue home meds. Cough/Sore throat/Congestion Pt with congestion and cough. CXR unremarkable. -Tessalon Perles and Chloraseptic spray as needed. -scheduled nebs and albuterol inhaler as needed. PPx: SCDs Discharge Planning: Awaiting clinical improvement, needs placement
[2018-09-25] MEDS ORDERED: Benzonatate 100 MG Capsule PO PRN (13:18)
[2018-09-25] MEDS ORDERED: guaiFENesin/Dextromethorphan 200 MG/20 MG 10 ML UDC PO PRN (13:19)
--- NOTE | 2018-09-25 20:52 | P.PNADD ---
Addendum to Inpatient Note Additional information: S: Libar called on patient. Residents responded. This is a 63-year-old female with a past medical history of seizures that was admitted Via Elliott act. Found to have a UTI and was treated appropriately. She is chronically on Keppra, next dose was due at 9 PM. Per nurses, patient was found laying in the side couch. Unresponsive. Patient was not arousable to sternal rub, did have palpable pulses. The nurses were unsure of what had occurred, they understood that patient had a history of seizures and thought it was either seizures or narcolepsy. Unsure of how long this patient was unresponsive. O: Vitals: Pulse: 80, respiratory rate: 16, oxygen saturations: 94% on room air, blood pressure: 116/59, [id number] glucose: 120. General: Obese female, unresponsive with seizure helmet on, unarousable to sternal rub. Tongue protruding from mouth. HEENT: Tongue protrusion appreciated. No evidence of lip biting. Eyes unresponsive to pupillary light reflex. miotic pupils. Respiratory: No accessory muscle use, chest rises and falls with breathing. Extremities: 2+ radial pulses appreciated. Warm and well-perfused. A/P: 63-year-old female with past medical history of narcolepsy and seizures, Libra called due to patient being found unresponsive in couch by bedside. Patient is currently postictal. Seems to be aroused after multiple episodes of sternal rub. Slow to respond. Ativan added as needed for seizures. Keppra dose switch to IV since patient is unable to swallow p.o. due to postictal state. -Seizure precautions ordered.
[2018-09-25] MEDS ORDERED: levETIRAcetam 1000mg/100mL Inj 100 ML IV.SIG ONE (21:00)
[2018-09-25] MEDS: Duloxetine 60 MG DR Capsule PO SCH (23:04)
[2018-09-26 08:07] LABS: Calcium 9.1 mg/dL (8.5-10.1); Carbon Dioxide 29.1 meq/L (21.0-32.0); Potassium 3.8 meq/L (3.5-5.1)
[2018-09-26] MEDS: glipiZIDE 5 MG Tablet PO SCH (08:09)
--- NOTE | 2018-09-26 09:28 | XR ---
EXAM DATE: 09/26/2018 9:13 AM EDT AGE/SEX: 63 years / Female INDICATIONS: Short of breath. Pneumonia. CLINICAL DATA: This is the patient's subsequent encounter. Patient reports that signs and symptoms h ave been present for 4 - 6 days and indicates a pain score of Nonresponsive. MEDICAL/SURGICAL HISTORY: . Bipolar. Bladder neck obstruction. COPD. Diabetic. Encephalopathy. Fibromyalgia. GERD. Hear failure. HTN. Hypokalemia. IBS. Narcolepsy. PTSD. Vertigo. . Suprapubic cat heter. Pacemaker. COMPARISON: [facility] [place], CHEST 1V SINGLE AP, 09/23/2018. . FINDINGS: A single AP view of the chest demonstrates the lungs to be symmetrically aerated without evidence of mass, infiltrate or effusion. Left-sided defibrillator with 2 intact leads. The cardiomediastinal con tours are unremarkable. Osseous structures are intact. CONCLUSION: No acute cardiopulmonary disease. Electronically signed by: Salbador Olson MD 09/26/2018 9:26 AM EDT
--- NOTE | 2018-09-26 09:51 | P.PNNP ---
Physical Exam Vital signs: Vital Signs 09/25/18 12:00 09/25/18 12:11 09/25/18 16:00 Temperature 98.0 F 98.0 F Pulse Rate 61 63 70 Respiratory Rate 16 16 18 Blood Pressure 146/76 H 170/68 H Pulse Oximetry 97 97 09/25/18 16:27 09/25/18 20:00 09/25/18 21:29 Temperature 98.7 F Pulse Rate 67 60 56 L Respiratory Rate 16 16 17 Blood Pressure 116/59 L Pulse Oximetry 94 L 97 09/26/18 00:00 09/26/18 08:00 09/26/18 09:09 Temperature 97.7 F 98.0 F Pulse Rate 65 63 63 Respiratory Rate 17 18 20 Blood Pressure 109/58 L 153/70 H Pulse Oximetry 96 92 L 09/26/18 09:10 Temperature Pulse Rate Respiratory Rate Blood Pressure Pulse Oximetry 92 L Intake & Output 09/25/18 09/26/18 09/26/18 18:59 06:59 18:59 Intake Total 2350 / 2350 100 / 100 Output Total 1600 / 1600 Balance 750 / 750 100 / 100 Intake: IV 750 / 750 100 / 100 NS Inj 1,000 ML @ 84 mls/hr IV. 750 / 750 CONT .[id number] [facility] Rx#:[id number] Keppra 1000 mg/100 mL Premix 100 / 100 100 ML @ 400 mls/hr IV.SIG ONCE ONE Rx#:[id number] Oral 1600 / 1600 Output: Urine Amount (Catheter) 1600 / 1600 Suprapubic 1600 / 1600 Other: Date of Last Bowel Movement 09/23/18 - Urinary Catheter Management Suprapubic Cath placed during this visit: yes, but has since been removed by the nurse Reason for continuing: Chronic Urinary Retention Insertion date: 09/26/18 Insertion time: 02:00 Removal date: 09/26/18 Removal time: 02:00 Assessment and Plan - Assessment (1) Acute kidney injury Code(s): N17.9 - Acute kidney failure, unspecified Status: Acute Plan: Acute kidney injury most likely prerenal with FeNa fo 0.38% from poor intake. Baseline creatinine is less than 1 in July 2018. Has suprapubic catheter and urinary output is now adequate. Urinalysis positive MRSA. Will discontinue IVF as patient is taking in good oral fluids. Avoid nephrotoxins. Renal ultrasound with no acute findings. Continue to hold ROXANNE inhibitor can be restarted at later date. Will also hold bumex for today. Will follow BMP labs pending for today. (2) Acute UTI Code(s): N39.0 - Urinary tract infection, site not specified Status: Acute Plan: MRSA UTI (3) Bipolar 1 disorder Code(s): F31.9 - Bipolar disorder, unspecified Status: Acute Plan: Psych is consulted. (4) Hypertension Code(s): I10 - Essential (primary) hypertension Status: Acute Plan: Hypertensive, on clonidine and hydralazine. Hydralazine increased.
[2018-09-26] MEDS: predniSONE 5 MG Tablet PO SCH (11:52)
[2018-09-26] MEDS: Docusate Sodium 100 MG Capsule PO SCH ×2 (11:52→21:24)
[2018-09-26] MEDS: levETIRAcetam 500 MG Tablet PO SCH (11:52)
[2018-09-26] MEDS: Sodium Chloride 0.9% 2 ML Flush BID IV.FLUSH SCH ×2 (11:53→21:24)
[2018-09-26] MEDS: clonazePAM 0.5 MG Tablet PO SCH (11:53)
[2018-09-26] MEDS: Mirtazapine 15 MG Tablet PO SCH (11:53)
[2018-09-26] MEDS: Calcium Carbonate 500 MG Tablet PO SCH ×2 (11:53→21:25)
[2018-09-26] MEDS: Budesonide-Formoterol 160/4.5 MCG 6 GM Inhaler INH SCH ×2 (11:53→21:25)
[2018-09-26] MEDS: Famotidine 20 MG Tablet PO SCH ×2 (11:53→21:25)
[2018-09-26] MEDS: Modafinil 200 MG Tablet PO SCH (11:53)
[2018-09-26] MEDS: Olopatadine 0.1% Opth Drops 5 ML Bottle EACH EYE SCH ×2 (11:53→21:25)
[2018-09-26] MEDS: Rivaroxaban 20 MG Tablet PO SCH (11:54)
[2018-09-26] MEDS: Lacosamide 100 MG Tablet PO SCH ×2 (11:54→21:26)
--- NOTE | 2018-09-26 12:03 | P.PNIM ---
Subjective Interval history: The patient was rather lethargic. She had an event overnight where she was unresponsive requiring a Halicat. She seemed postictal afterwards. She had another episode of unresponsiveness this morning. She is currently lethargic but answering questions appropriately. She says she is able to swallow her pills. Discussed with nursing. Physical Exam Vital signs: Vital Signs 09/25/18 12:11 09/25/18 16:00 09/25/18 16:27 Temperature 98.0 F Pulse Rate 63 70 67 Respiratory Rate 16 18 16 Blood Pressure 170/68 H Pulse Oximetry 97 09/25/18 20:00 09/25/18 21:29 09/26/18 00:00 Temperature 98.7 F 97.7 F Pulse Rate 60 56 L 65 Respiratory Rate 16 17 17 Blood Pressure 116/59 L 109/58 L Pulse Oximetry 94 L 97 96 09/26/18 08:00 09/26/18 09:09 09/26/18 09:10 Temperature 98.0 F Pulse Rate 63 63 Respiratory Rate 18 20 Blood Pressure 153/70 H Pulse Oximetry 92 L 92 L Intake & Output 09/25/18 09/26/18 09/26/18 18:59 06:59 18:59 Intake Total 2350 / 2350 100 / 100 Output Total 1600 / 1600 Balance 750 / 750 100 / 100 Intake: IV 750 / 750 100 / 100 NS Inj 1,000 ML @ 84 mls/hr IV. 750 / 750 CONT .[id number] [facility] Rx#:[id number] Keppra 1000 mg/100 mL Premix 100 / 100 100 ML @ 400 mls/hr IV.SIG ONCE ONE Rx#:[id number] Oral 1600 / 1600 Output: Urine Amount (Catheter) 1600 / 1600 Suprapubic 1600 / 1600 Other: Date of Last Bowel Movement 09/23/18 Narrative: GENERAL: No distress. HEENT: NC, AT. CARDIOVASCULAR: Regular rate and rhythm without murmurs, gallops, or rubs. RESPIRATORY: Breath sounds equal bilaterally. No accessory muscle use. GASTROINTESTINAL: Abdomen soft, non-tender, nondistended. GENITOURINARY: Suprapubic catheter in place. MUSCULOSKELETAL: No cyanosis, or edema. BACK: Nontender without obvious deformity. No CVA tenderness. NEURO: No gross deficits. Lethargic, slow to respond, falls asleep easily. - Urinary Catheter Management Suprapubic Cath placed during this visit: yes, but has since been removed by the nurse Reason for continuing: Chronic Urinary Retention Insertion date: 09/26/18 Insertion time: 02:00 Removal date: 09/26/18 Removal time: 02:00 Results - Labs CBC & Chem 7: 09/24/18 03:27 09/26/18 07:19 Laboratory Results - last 24 hr 09/25/18 09/26/18 20:24 07:19 Sodium 143 Potassium 3.8 D Chloride 107 Carbon Dioxide 29.1 Anion Gap 7 BUN 12 Creatinine 0.79 Estimated GFR 74 L POC Glucose 120 H Random Glucose 123 H Calcium 9.1 - Imaging Impressions Chest X-Ray 09/26/18 08:30 CONCLUSION: No acute cardiopulmonary disease. Assessment and Plan - Plan 63-year-old female with multiple medical problems including diabetes, hypertension, bipolar disorder brought in to the emergency room under Elliott act. The patient was seen by psychiatry and medically cleared by ED physician but her facility will not accept her back. Patient will be in an outpatient bed with no observation services while case management fine alternative placement. However patient with UTI start IV abx Rocephyn IV monitor urine cultures until final UTI with indwelling catheter - suprapubic catheter Ucx with MRSA. -change antibiotics to doxycycline PO per sensitivities. -suprapubic catheter changed 09/25. CONSUELO with oliguria, has suprapubic cath. Also complicated UTI. Noted with low urine OP. Nephrology consulted, appreciate recommendations. -Hold lisinopril as with CONSUELO. -Avoid nephrotoxins. -Monitor kidney indices and follow up with nephrology. -encourage PO fluid intake. Seizure disorder/ narcolepsy ? seizure activity vs narcolepsy. Seems post-ictal at times. -Continue home meds. -EEG. -CT head. -ABG. -neurology consult requested. -check blood sugars. -seizure precautions, neuro checks, Ativan as needed. Cough/Sore throat/Congestion Pt with congestion and cough. CXR unremarkable. -Tessalon Perles and Chloraseptic spray as needed. -scheduled nebs and albuterol inhaler as needed. PPx: SCDs Discharge Planning: Awaiting clinical improvement, needs placement
--- NOTE | 2018-09-26 13:29 | CT ---
EXAM DATE: 09/26/2018 1:25 PM EDT AGE/SEX: 63 years / Female INDICATIONS: Seizure CLINICAL DATA: This is the patient's initial encounter. Patient reports that signs and symptoms have been present for 1 day and indicates a pain score of Nonresponsive. MEDICAL/SURGICAL HISTORY: Cholelithasis. Diabetes. Hypertension. Pacemaker. RADIATION DOSE: 42.28 CTDI (mGy) COMPARISON: [facility] [place], 07/19/2018. . TECHNIQUE: CT of the head without contrast. Using automated exposure control and adjustment of the mA and/or kV according to patient size, radiation dose was kept as low as reasonably achievable to ob tain optimal diagnostic quality images. DICOM format image data is available electronically for revi ew and comparison. FINDINGS: Cerebrum: The ventricles are normal for age. No evidence of midline shift, mass lesion, hemorrhage or acute infarction. No extraaxial fluid collections are seen. Posterior Fossa: The cerebellum and brainstem are intact. The 4th ventricle is midline. The cerebe llopontine angle is unremarkable. Extracranial: The visualized portion of the orbits is intact. Skull: The calvaria is intact. No evidence of skull fracture. CONCLUSION: 1. No acute intracranial abnormality. . Electronically signed by: Salbador Olson MD 09/26/2018 1:28 PM EDT
--- NOTE | 2018-09-26 15:17 | P.PNNP ---
Subjective Interval history: Seen in AM, was not responsive, receiving breathing treatment. Ruma cat called last night. Possible postictal. Creatinine at 0.79 today. <HubercarlosAlyce katne - Last Filed: 09/26/18 15:11> Physical Exam Vital signs: Vital Signs 09/25/18 16:00 09/25/18 16:27 09/25/18 20:00 Temperature 98.0 F 98.7 F Pulse Rate 70 67 60 Respiratory Rate 18 16 16 Blood Pressure 170/68 H 116/59 L Pulse Oximetry 97 94 L 09/25/18 21:29 09/26/18 00:00 09/26/18 08:00 Temperature 97.7 F 98.0 F Pulse Rate 56 L 65 63 Respiratory Rate 17 17 18 Blood Pressure 109/58 L 153/70 H Pulse Oximetry 97 96 92 L 09/26/18 09:09 09/26/18 09:10 09/26/18 12:00 Temperature 98.0 F Pulse Rate 63 63 Respiratory Rate 20 17 Blood Pressure 98/53 L Pulse Oximetry 92 L 91 L 09/26/18 12:26 Temperature Pulse Rate 60 Respiratory Rate 20 Blood Pressure Pulse Oximetry Intake & Output 09/25/18 09/26/18 09/26/18 18:59 06:59 18:59 Intake Total 2350 / 2350 100 / 100 Output Total 1600 / 1600 Balance 750 / 750 100 / 100 Intake: IV 750 / 750 100 / 100 NS Inj 1,000 ML @ 84 mls/hr IV. 750 / 750 CONT .[id number] [facility] Rx#:[id number] Keppra 1000 mg/100 mL Premix 100 / 100 100 ML @ 400 mls/hr IV.SIG ONCE ONE Rx#:[id number] Oral 1600 / 1600 Output: Urine Amount (Catheter) 1600 / 1600 Suprapubic 1600 / 1600 Other: Date of Last Bowel Movement 09/23/18 09/23/18 Narrative: GENERAL: Lethargic and difficult to arouse CARDIOVASCULAR: Regular rate and rhythm without murmurs, gallops, or rubs. RESPIRATORY: Breath sounds equal bilaterally. No accessory muscle use. GASTROINTESTINAL: Abdomen soft, non-tender, nondistended. GENITOURINARY: Supra pubic catheter with light yellow urine MUSCULOSKELETAL: No cyanosis, or edema. BACK: Nontender without obvious deformity. No CVA tenderness. - Urinary Catheter Management Suprapubic Cath placed during this visit: yes, but has since been removed by the nurse Reason for continuing: Chronic Urinary Retention Insertion date: 09/26/18 Insertion time: 02:00 Removal date: 09/26/18 Removal time: 02:00 <Mahnaz Rodriguez - Last Filed: 09/26/18 15:11> Vital signs: Vital Signs 09/26/18 20:00 09/27/18 00:00 09/27/18 08:00 Temperature 98.5 F 98.1 F 97.4 F L Pulse Rate 66 67 58 L Respiratory Rate 22 18 16 Blood Pressure 126/59 L 122/68 119/59 L Pulse Oximetry 94 L 95 93 L 09/27/18 08:19 09/27/18 12:00 09/27/18 13:43 Temperature 98.0 F Pulse Rate 112 H 81 Respiratory Rate 17 18 Blood Pressure 127/71 Pulse Oximetry 93 L 93 L 09/27/18 16:00 Temperature 97.8 F Pulse Rate 78 Respiratory Rate 16 Blood Pressure 136/63 Pulse Oximetry 96 Intake & Output 09/26/18 09/27/18 09/27/18 18:59 06:59 18:59 Intake Total 240 / 240 Output Total 2149 / 0 Balance -1909 / -1909 Weight 99 kg Intake: Oral 240 / 240 Output: Urine Amount (Catheter) 2149 / 0 Suprapubic 2149 / 2149 Other: Date of Last Bowel Movement 09/23/18 09/23/18 # Bowel Movements 1 - Urinary Catheter Management Suprapubic Cath placed during this visit: no <Usman Medrano - Last Filed: 09/27/18 18:05> Assessment and Plan - Assessment (1) Acute kidney injury Code(s): N17.9 - Acute kidney failure, unspecified Status: Acute Plan: Acute kidney injury most likely prerenal with FeNa fo 0.38% from poor intake. Baseline creatinine is less than 1 in July 2018. Has suprapubic catheter and urinary output is now adequate. Urinalysis positive MRSA. On antibiotics. Avoid nephrotoxins. Renal ultrasound with no acute findings. Continue to hold ROXANNE inhibitor can be restarted at later date. Recommend to continue to hold bumex. No shortness of breath and has poor intake today. Nephrology will sign off and see PRN only. (2) Acute UTI Code(s): N39.0 - Urinary tract infection, site not specified Status: Acute Plan: MRSA UTI, on antibiotics (3) Bipolar 1 disorder Code(s): F31.9 - Bipolar disorder, unspecified Status: Acute Plan: Psych is consulted. (4) Hypertension Code(s): I10 - Essential (primary) hypertension Status: Acute <Mahnaz Rodriguez - Last Filed: 09/26/18 15:11> - Assessment (1) Acute kidney injury Code(s): N17.9 - Acute kidney failure, unspecified Status: Acute Plan: Patient seen and examined, agree with above. Creatinine improved, most likely has a pre renal element. Will sign off from Nephrology, please call again if needed. (2) Acute UTI Code(s): N39.0 - Urinary tract infection, site not specified Status: Acute (3) Bipolar 1 disorder Code(s): F31.9 - Bipolar disorder, unspecified Status: Acute (4) Hypertension Code(s): I10 - Essential (primary) hypertension Status: Acute <Usman Medrano - Last Filed: 09/27/18 18:05>
[2018-09-26 15:42] LABS: ABG PCO2 46 mmHg (38-42); ABG PO2 65 mmHg (61-120)
--- NOTE | 2018-09-26 16:05 | P.CONNEU ---
History of Present Illness Service: Neurology Primary Care Provider: UNKNOWN Chief Complaint: Possible seizure History of Present Illness: 63-year-old female admitted originally for psychiatric complaints then transferred to the medical service for renal failure UTI. Has had episodes of lethargy confusion and sleepiness. Thoughts are she may have seizure or sleep attacks. EEG was performed 09/24/2018 which was negative for seizure activity. ABGs have shown mild hypoxemia. She is followed by the renal service as well. Renal function has improved. Review of Systems All other systems reviewed negative except as stated in HPI PMFSH - History History Provided By: Patient - Medical History Medical History: Medical History (Last Reviewed 09/26/18 @ 13:38 by Mindy Burnett PT) Suprapubic catheter (Acute) GERD (gastroesophageal reflux disease) (Acute) Bipolar 1 disorder (Acute) Edema (Acute) Anxiety (Acute) Unstable angina (Acute) Osteoporosis (Acute) COPD (chronic obstructive pulmonary disease) (Acute) Heart failure (Acute) Narcolepsy (Acute) Encephalopathy (Acute) MDRO (multiple drug resistant organisms) resistance Onset Date: ~09/21/18 Bladder neck obstruction Constipation Dermatitis Diabetes 1.5, managed as type 2 Dietary calcium deficiency Dry eye syndrome Fibromyalgia Hypertension Hypokalemia Irritable bowel disease PTSD (post-traumatic stress disorder) Pacemaker Peptic ulcer disease Pruritic condition Seasonal allergic rhinitis Vertigo - Tobacco History Second Hand Smoke Exposure: No Tobacco Use In Past 30 Days: Yes Smoking Status: Unknown if ever smoked Tobacco Type: Cigarettes - Alcohol History How Often Do You Have a Drink Containing Alcohol: Unable to Obtain - Substance Use History Substance History: No History of Abuse - Travel History Recent Travel in the [place] Within the Last 8 Weeks: No Recent Travel Out of the Country Within the Last 8 Weeks: No - Immunization History Tetanus Immunization: Unsure Medications and Allergies Active Medications: Active Medications Acetaminophen (Tylenol) 650 mg PO Q4H PRN PRN Reason: PAIN SCALE 1 TO 10 Albuterol (Albuterol Neb (Dov)) 2.5 mg NEB QID NEB DOV Last Admin: 09/26/18 15:34 Dose: 2.5 mg Albuterol (Ventolin Hfa Inh) 2 puff INH QID PRN PRN Reason: DYSPNEA Artificial Tears (Tears Naturale Opth Drops) 1 drop EACH EYE BID PRN PRN Reason: DRY EYE(S) Benzonatate (Tessalon Perles) 200 mg PO Q8H PRN PRN Reason: COUGH Last Admin: 09/26/18 02:15 Dose: 200 mg Bisacodyl (Dulcolax Ec) 5 mg PO DAILY [facility] Last Admin: 09/26/18 11:52 Dose: Not Given Budesonide/Formoterol Fumarate (Symbicort 160/4.5 Mcg Inh) 2 puff INH BID [facility] Last Admin: 09/26/18 11:53 Dose: Not Given Bumetanide (Bumex) 2 mg PO DAILY [facility] Last Admin: 09/24/18 09:48 Dose: Not Given Calcium Carbonate (Oscal) 500 mg PO BID [facility] Last Admin: 09/26/18 11:53 Dose: Not Given Clonazepam (Klonopin) 0.5 mg PO BID [facility] Last Admin: 09/26/18 11:53 Dose: Not Given Clonidine HCl (Catapres) 0.1 mg PO BID [facility] Last Admin: 09/26/18 11:52 Dose: Not Given Docusate Sodium (Colace) 100 mg PO BID [facility] Last Admin: 09/26/18 11:52 Dose: Not Given Doxycycline Hyclate (Vibratab) 100 mg PO Q12HR [facility] Last Admin: 09/26/18 11:54 Dose: Not Given Duloxetine HCl (Cymbalta) 120 mg PO DAILY@2100 [facility] Last Admin: 09/25/18 23:04 Dose: Not Given Famotidine (Pepcid) 10 mg PO BID [facility] Last Admin: 09/26/18 11:53 Dose: Not Given Fluticasone Propionate (Flonase Nasal Addy) 1 spray EACH NARE DAILY [facility] Last Admin: 09/26/18 11:52 Dose: Not Given Glipizide (Glucotrol) 2.5 mg PO DAILYAC [facility] Last Admin: 09/26/18 08:09 Dose: Not Given Glycopyrrolate (Robinul) 1 mg PO TID [facility] Last Admin: 09/26/18 13:00 Dose: Not Given Guaifenesin/Dextromethorphan (Robitussin Dm 200/20 Mg/10 Ml Liq) 10 ml PO Q4H PRN PRN Reason: congestion Last Admin: 09/26/18 02:16 Dose: 10 ml Hydralazine HCl (Apresoline) 10 mg PO QID PRN PRN Reason: sbp> 180 Hydralazine HCl (Apresoline) 100 mg PO TID [facility] Last Admin: 09/26/18 13:00 Dose: Not Given Sodium Chloride (Ns Inj) 1,000 mls @ 0 mls/hr IV.SIG BOLUS [facility] Lacosamide (Vimpat) 200 mg PO BID [facility] Last Admin: 09/26/18 11:54 Dose: Not Given Levetiracetam (Keppra) 1,500 mg PO BID [facility] Last Admin: 09/26/18 11:52 Dose: Not Given Lorazepam (Ativan Inj) 2 mg IV.PUSH Q10M PRN PRN Reason: SEE LABEL COMMENTS Last Admin: 09/26/18 06:50 Dose: 2 mg Meclizine HCl (Antivert) 25 mg PO TID [facility] Last Admin: 09/26/18 13:00 Dose: Not Given Mirtazapine (Remeron) 7.5 mg PO DAILY [facility] Last Admin: 09/26/18 11:53 Dose: Not Given Miscellaneous (Pill Splitter) 1 each OTHER UNSCH PRN PRN Reason: SEE LABEL COMMENTS Modafinil (Provigil) 200 mg PO DAILY@0900 [facility] Last Admin: 09/26/18 11:53 Dose: Not Given Multivitamins (Theragran) 1 tab PO DAILY [facility] Last Admin: 09/26/18 11:54 Dose: Not Given Mupirocin (Bactroban 2% Oint) 1 applicatio TOPICAL BID [facility] Last Admin: 09/26/18 11:52 Dose: Not Given Olopatadine HCl (Patanol 0.1% Opth Drops) 1 drop EACH EYE BID [facility] Last Admin: 09/26/18 11:53 Dose: Not Given Ondansetron HCl (Zofran Odt) 4 mg PO QID PRN PRN Reason: Nausea Pt Own: Linzess (145mcg) 0 each PO DAILY [facility] Polyethylene Glycol (Miralax) 17 gm PO BID PRN PRN Reason: Constipation Potassium Chloride (Klor-Con 10) 10 meq PO BID [facility] Last Admin: 09/26/18 11:53 Dose: Not Given Prednisone (Deltasone) 5 mg PO DAILY [facility] Last Admin: 09/26/18 11:52 Dose: Not Given Rivaroxaban (Xarelto) 20 mg PO DAILY [facility] Last Admin: 09/26/18 11:54 Dose: Not Given Sodium Chloride (Ns Flush) 2 ml IV.FLUSH BID [facility] Last Admin: 09/26/18 11:53 Dose: Not Given Sodium Chloride (Ns Flush) 2 ml IV.FLUSH PRN PRN PRN Reason: FLUSH AFTER USING IV ACCESS Throat Lozenges (Chloraseptic Addy) 2 spray OROPHARYNG Q2H PRN PRN Reason: SORE THROAT Last Admin: 09/24/18 13:34 Dose: 2 spray Allergies Allergy/AdvReac Type Severity Reaction Status Date / Time aspirin Allergy Unknown Abdominal Verified 08/21/18 01:52 Pain haloperidol [From Haldol] Allergy Unknown Abdominal Verified 08/21/18 01:52 Pain iodine Allergy Unknown Abdominal Verified 08/21/18 01:52 Pain metformin Allergy Unknown Abdominal Verified 08/21/18 01:52 Pain metoclopramide Allergy Unknown Abdominal Verified 08/21/18 01:52 Pain morphine Allergy Unknown Abdominal Verified 08/21/18 01:52 Pain pregabalin [From Lyrica] Allergy Unknown Abdominal Verified 08/21/18 01:52 Pain sucralfate [From Carafate] Allergy Unknown Abdominal Verified 08/21/18 01:52 Pain Home Medications Medication Instructions Recorded Confirmed Type acetaminophen 650 mg PO Q4H PRN 08/21/18 09/21/18 History albuterol sulfate 2.5 mg INHALATION QID 08/21/18 09/21/18 History albuterol sulfate [Ventolin HFA] 2 puff INHALATION QID 08/21/18 09/21/18 History bisacodyl 5 mg PO DAILY 08/21/18 09/21/18 History bumetanide 2 mg PO DAILY 08/21/18 09/21/18 History calcium carbonate [Calcium 600] 600 mg PO BID 08/21/18 09/21/18 History clonazepam 0.5 mg PO BID 08/21/18 09/21/18 History dextran 70-hypromellose (PF) 1 drp OPHTHALMIC (EYE) Q12H PRN 08/21/18 09/21/18 History docusate sodium 100 mg PO BID 08/21/18 09/21/18 History duloxetine [Cymbalta] 120 mg PO 2100 08/21/18 09/21/18 History fluticasone 1 spray INTRANASAL DAILY 08/21/18 09/21/18 History fluticasone-salmeterol [Advair 1 inh INHALATION BID 08/21/18 09/21/18 History Diskus] glipizide 2.5 mg PO DAILY 08/21/18 09/21/18 History glycopyrrolate 1 mg PO TID 08/21/18 09/21/18 History hydralazine 50 mg PO 0600 08/21/18 09/21/18 History hydralazine 50 mg PO 1400 08/21/18 09/21/18 History hydralazine 50 mg PO 2200 08/21/18 09/21/18 History lacosamide [Vimpat] 200 mg PO BID 08/21/18 09/21/18 History levetiracetam [Keppra] 1,500 mg PO Q12H 08/21/18 09/21/18 History linaclotide [Linzess] 145 mcg PO DAILY 08/21/18 09/21/18 History lisinopril 5 mg PO DAILY 08/21/18 09/21/18 History lorazepam [Ativan] 1 mg IM Q10-15M PRN 08/21/18 09/21/18 History meclizine 25 mg PO TID 08/21/18 09/21/18 History modafinil 200 mg PO 0908/21/18 09/21/18 History multivitamin 1 tab PO DAILY 08/21/18 09/21/18 History olopatadine 1 drp OPHTHALMIC (EYE) BID 08/21/18 09/21/18 History ondansetron 4 mg PO QID PRN 08/21/18 09/21/18 History polyethylene glycol 3350 17 g PO BID PRN 08/21/18 09/21/18 History potassium chloride 10 meq PO BID 08/21/18 09/21/18 History prednisone 5 mg PO DAILY 08/21/18 09/21/18 History ranitidine HCl 150 mg PO BID 08/21/18 09/21/18 History rivaroxaban [Xarelto] 20 mg PO DAILY 08/21/18 09/21/18 History triamcinolone acetonide 1 applic TOPICAL BID 08/21/18 09/21/18 History clonidine HCl 0.1 mg PO BID 09/21/18 09/21/18 History mirtazapine 7.5 mg PO DAILY 09/21/18 09/21/18 History mupirocin 1 applic TOPICAL BID 09/21/18 09/21/18 History nicotine 1 patch TRANSDERMAL Q24H 09/21/18 09/21/18 History Exam Vital signs: Vital Signs 09/25/18 16:27 09/25/18 20:00 09/25/18 21:29 Temperature 98.7 F Pulse Rate 67 60 56 L Respiratory Rate 16 16 17 Blood Pressure 116/59 L Pulse Oximetry 94 L 97 09/26/18 00:00 09/26/18 08:00 09/26/18 09:09 Temperature 97.7 F 98.0 F Pulse Rate 65 63 63 Respiratory Rate 17 18 20 Blood Pressure 109/58 L 153/70 H Pulse Oximetry 96 92 L 09/26/18 09:10 09/26/18 12:00 09/26/18 12:26 Temperature 98.0 F Pulse Rate 63 60 Respiratory Rate 17 20 Blood Pressure 98/53 L Pulse Oximetry 92 L 91 L 09/26/18 15:34 Temperature Pulse Rate 61 Respiratory Rate 20 Blood Pressure Pulse Oximetry Intake & Output 09/25/18 09/26/18 09/26/18 18:59 06:59 18:59 Intake Total 2350 / 2350 100 / 100 Output Total 1600 / 1600 Balance 750 / 750 100 / 100 Intake: IV 750 / 750 100 / 100 NS Inj 1,000 ML @ 84 mls/hr IV. 750 / 750 CONT .[id number] [facility] Rx#:[id number] Keppra 1000 mg/100 mL Premix 100 / 100 100 ML @ 400 mls/hr IV.SIG ONCE ONE Rx#:[id number] Oral 1600 / 1600 Output: Urine Amount (Catheter) 1600 / 1600 Suprapubic 1600 / 1600 Other: Date of Last Bowel Movement 09/23/18 09/23/18 Narrative: GENERAL: in NAD, obese SKIN: Warm and dry. HEAD: Atraumatic. Normocephalic. EYES: Pupils equal and round. No scleral icterus. ENT: No nasal bleeding or discharge. Mucous membranes pink and moist. NECK: Trachea midline. No JVD. CARDIOVASCULAR: Regular rate and rhythm. RESPIRATORY: No accessory muscle use. GASTROINTESTINAL: Abdomen soft, non-tender, nondistended. MUSCULOSKELETAL: Extremities without clubbing, cyanosis, or edema. No obvious deformities. NEUROLOGICAL: Sleeping, arousable states her name falls back asleep, no gaze deviation cushingoid type of appearance no facial asymmetry moving all limbs to gravity, oral buccal dyskinesias mild left-sided tremor gait not assessed secondary to fall her PSYCHIATRIC: Calm - Constitutional no acute distress - Routine HEENT Exam Head: Present: normocephalic Results - Labs CBC & Chem 7: 09/24/18 03:27 09/26/18 07:19 Labs: Laboratory Results - last 24 hr 09/25/18 09/26/18 09/26/18 20:24 07:19 15:36 Puncture Site Right radial Patient Temperature 98.6 O2 Saturation 90 ABG pH 7.42 ABG pCO2 46 H ABG pO2 65 ABG HCO3 29 H ABG O2 Content 16.0 ABG Base Excess 5.0 H ABG Methemoglobin 1.2 Christiano Test Y Hemoglobin 12.7 Carboxyhemoglobin 1.5 O2 Delivery Device Room air Liter Flow 21.00 Critical Value No Sodium 143 Potassium 3.8 D Chloride 107 Carbon Dioxide 29.1 Anion Gap 7 BUN 12 Creatinine 0.79 Estimated GFR 74 L POC Glucose 120 H Random Glucose 123 H Calcium 9.1 - Imaging Impressions Head CT 09/26/18 00:00 CONCLUSION: 1. No acute intracranial abnormality. . Chest X-Ray 09/26/18 08:30 CONCLUSION: No acute cardiopulmonary disease. Review/Management - Diagnosis (1) Spells of decreased attentiveness Code(s): R68.89 - Other general symptoms and signs Status: Acute Current Visit: Yes (2) Acute UTI Code(s): N39.0 - Urinary tract infection, site not specified Status: Acute Current Visit: Yes (3) Acute kidney injury Code(s): N17.9 - Acute kidney failure, unspecified Status: Acute Current Visit: Yes (4) Hypertension Code(s): I10 - Essential (primary) hypertension Status: Acute Current Visit : Yes (5) Bipolar 1 disorder Code(s): F31.9 - Bipolar disorder, unspecified Status: Acute Current Visit: No (6) Anxiety Code(s): F41.9 - Anxiety disorder, unspecified Status: Acute Current Visit: No (7) Seizure Code(s): R56.9 - Unspecified convulsions Status: Acute Current Visit: Yes (8) Narcolepsy Code(s): G47.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 Patient apparently told the hospitalist on 09/23/2018 she had narcolepsy. Also of note she is on Provigil which is used for wakefulness and narcolepsy. She is on some medication such as clonazepam that could cause sleepiness. Uses as needed Other etiologies would include secondary to metabolic disturbance versus medication effect versus hypoxemia seizure is a possibility as well She had one EEG which was negative for seizure activity Recommendation Continue Keppra and Vimpat Repeat EEG Ritalin 5-10 mg twice daily can be tried to improve wakefulness Suspect high probability of underlying sleep apnea may have may require CPAP therapy which would need to be initiated in the outpatient setting can follow- up with us at our sleep center or whoever her sleep physician is Seizure fall precautions No driving, operating any heavy machinery or dangerous machinery, swimming alone for at least 6 months of being seizure, spell free.
--- NOTE | 2018-09-26 17:17 | MG ---
cc: Magali Sultana MD EEG NUMBER: [id number] REFERRING PHYSICIAN: Gabriel Glover MD CLINICAL HISTORY: In room 1723 with photic stimulation, awake, drowsy, asleep. Patient was [facility] Acted from [facility] for suicidal ideation. UTI. He has a history of the developmental delay, bipolar, diabetes, narcolepsy and other, has a pacemaker. DESCRIPTION OF RECORD: The background is variable between normal alpha and theta slowing. The patient may be asleep. EKG does look sinus. Overall, symmetrical background, minimal artifact. The patient is between partial wakefulness and sleep. There is no evidence of any epileptiform features. Photic stimulation does elicit a good posterior driving response. IMPRESSION: Likely normal study. Clinical correlation. MD HOLLI Fernandez/cherry , 04:14 PM , 04:20 PM
[2018-09-26] MEDS: Duloxetine 60 MG DR Capsule PO SCH (21:24)
[2018-09-27] MEDS: clonazePAM 0.5 MG Tablet PO SCH ×3 (01:04→21:23)
[2018-09-27] MEDS: levETIRAcetam 500 MG Tablet PO SCH ×3 (01:04→21:22)
--- NOTE | 2018-09-27 06:33 | P.PNNEU ---
Subjective Subjective Comments: sleepy on and off Active Medications: Active Medications Acetaminophen (Tylenol) 650 mg PO Q4H PRN PRN Reason: PAIN SCALE 1 TO 10 Albuterol (Ventolin Hfa Inh) 2 puff INH QID PRN PRN Reason: DYSPNEA Albuterol (Duoneb Neb (Dov)) 1 ampul NEB Q6HR WHILE AWAKE NEB DOV Artificial Tears (Tears Naturale Opth Drops) 1 drop EACH EYE BID PRN PRN Reason: DRY EYE(S) Benzonatate (Tessalon Perles) 200 mg PO Q8H PRN PRN Reason: COUGH Last Admin: 09/26/18 02:15 Dose: 200 mg Bisacodyl (Dulcolax Ec) 5 mg PO DAILY [facility] Last Admin: 09/26/18 11:52 Dose: Not Given Budesonide/Formoterol Fumarate (Symbicort 160/4.5 Mcg Inh) 2 puff INH BID [facility] Last Admin: 09/26/18 21:25 Dose: Not Given Bumetanide (Bumex) 2 mg PO DAILY [facility] Last Admin: 09/24/18 09:48 Dose: Not Given Calcium Carbonate (Oscal) 500 mg PO BID [facility] Last Admin: 09/26/18 21:25 Dose: Not Given Clonazepam (Klonopin) 0.5 mg PO BID [facility] Last Admin: 09/27/18 01:04 Dose: Not Given Clonidine HCl (Catapres) 0.1 mg PO BID [facility] Last Admin: 09/26/18 21:23 Dose: Not Given Docusate Sodium (Colace) 100 mg PO BID [facility] Last Admin: 09/26/18 21:24 Dose: Not Given Doxycycline Hyclate (Vibratab) 100 mg PO Q12HR [facility] Last Admin: 09/26/18 21:25 Dose: Not Given Duloxetine HCl (Cymbalta) 120 mg PO DAILY@2100 [facility] Last Admin: 09/26/18 21:24 Dose: Not Given Famotidine (Pepcid) 10 mg PO BID [facility] Last Admin: 09/26/18 21:25 Dose: Not Given Fluticasone Propionate (Flonase Nasal [place]) 1 spray EACH NARE DAILY [facility] Last Admin: 09/26/18 11:52 Dose: Not Given Glipizide (Glucotrol) 2.5 mg PO DAILYAC [facility] Last Admin: 09/26/18 08:09 Dose: Not Given Glycopyrrolate (Robinul) 1 mg PO TID [facility] Last Admin: 09/26/18 18:07 Dose: 1 mg Guaifenesin/Dextromethorphan (Robitussin Dm 200/20 Mg/10 Ml Liq) 10 ml PO Q4H PRN PRN Reason: congestion Last Admin: 09/26/18 02:16 Dose: 10 ml Hydralazine HCl (Apresoline) 10 mg PO QID PRN PRN Reason: sbp> 180 Hydralazine HCl (Apresoline) 100 mg PO TID [facility] Last Admin: 09/26/18 18:07 Dose: 100 mg Sodium Chloride (Ns Inj) 1,000 mls @ 0 mls/hr IV.SIG BOLUS [facility] Lacosamide (Vimpat) 200 mg PO BID [facility] Last Admin: 09/26/18 21:26 Dose: Not Given Levetiracetam (Keppra) 1,500 mg PO BID [facility] Last Admin: 09/27/18 01:04 Dose: Not Given Lorazepam (Ativan Inj) 2 mg IV.PUSH Q10M PRN PRN Reason: SEE LABEL COMMENTS Last Admin: 09/26/18 06:50 Dose: 2 mg Meclizine HCl (Antivert) 25 mg PO TID [facility] Last Admin: 09/26/18 18:06 Dose: 25 mg Mirtazapine (Remeron) 7.5 mg PO DAILY [facility] Last Admin: 09/26/18 11:53 Dose: Not Given Miscellaneous (Pill Splitter) 1 each OTHER UNSCH PRN PRN Reason: SEE LABEL COMMENTS Modafinil (Provigil) 200 mg PO DAILY@0900 [facility] Last Admin: 09/26/18 11:53 Dose: Not Given Multivitamins (Theragran) 1 tab PO DAILY [facility] Last Admin: 09/26/18 11:54 Dose: Not Given Mupirocin (Bactroban 2% Oint) 1 applicatio TOPICAL BID [facility] Last Admin: 09/26/18 21:23 Dose: Not Given Olopatadine HCl (Patanol 0.1% Opth Drops) 1 drop EACH EYE BID [facility] Last Admin: 09/26/18 21:25 Dose: 1 drop Ondansetron HCl (Zofran Odt) 4 mg PO QID PRN PRN Reason: Nausea Pt Own: Linzess (145mcg) 0 each PO DAILY [facility] Polyethylene Glycol (Miralax) 17 gm PO BID PRN PRN Reason: Constipation Potassium Chloride (Klor-Con 10) 10 meq PO BID [facility] Last Admin: 09/26/18 21:24 Dose: Not Given Prednisone (Deltasone) 5 mg PO DAILY [facility] Last Admin: 09/26/18 11:52 Dose: Not Given Rivaroxaban (Xarelto) 20 mg PO DAILY [facility] Last Admin: 09/26/18 11:54 Dose: Not Given Sodium Chloride (Ns Flush) 2 ml IV.FLUSH BID [facility] Last Admin: 09/26/18 21:24 Dose: 2 ml Sodium Chloride (Ns Flush) 2 ml IV.FLUSH PRN PRN PRN Reason: FLUSH AFTER USING IV ACCESS Throat Lozenges (Chloraseptic [place]) 2 spray OROPHARYNG Q2H PRN PRN Reason: SORE THROAT Last Admin: 09/24/18 13:34 Dose: 2 spray Allergies/Adverse Reactions: Allergies Allergy/AdvReac Type Severity Reaction Status Date / Time aspirin Allergy Unknown Abdominal Verified 08/21/18 01:52 Pain haloperidol [From Haldol] Allergy Unknown Abdominal Verified 08/21/18 01:52 Pain iodine Allergy Unknown Abdominal Verified 08/21/18 01:52 Pain metformin Allergy Unknown Abdominal Verified 08/21/18 01:52 Pain metoclopramide Allergy Unknown Abdominal Verified 08/21/18 01:52 Pain morphine Allergy Unknown Abdominal Verified 08/21/18 01:52 Pain pregabalin [From Lyrica] Allergy Unknown Abdominal Verified 08/21/18 01:52 Pain sucralfate [From Carafate] Allergy Unknown Abdominal Verified 08/21/18 01:52 Pain Review of Systems All other systems reviewed negative except as stated in HPI Physical Exam Vital signs: Vital Signs 09/26/18 08:00 09/26/18 09:09 09/26/18 09:10 Temperature 98.0 F Pulse Rate 63 63 Respiratory Rate 18 20 Blood Pressure 153/70 H Pulse Oximetry 92 L 92 L 09/26/18 12:00 09/26/18 12:26 09/26/18 15:34 Temperature 98.0 F Pulse Rate 63 60 61 Respiratory Rate 17 20 20 Blood Pressure 98/53 L Pulse Oximetry 91 L 09/26/18 16:00 09/26/18 20:00 09/27/18 00:00 Temperature 97.4 F L 98.5 F 98.1 F Pulse Rate 69 66 67 Respiratory Rate 16 22 18 Blood Pressure 132/68 126/59 L 122/68 Pulse Oximetry 97 94 L 95 Intake & Output 09/26/18 09/26/18 09/27/18 06:59 18:59 06:59 Intake Total 100 / 100 240 / 240 Output Total 2149 Balance 100 / 100 -1909 / -1909 Weight 99 kg Intake: IV 100 / 100 Keppra 1000 mg/100 mL Premix 100 / 100 100 ML @ 400 mls/hr IV.SIG ONCE ONE Rx#:[id number] Oral 240 / 240 Output: Urine Amount (Catheter) 2149 Suprapubic 2149 Other: Date of Last Bowel Movement 09/23/18 # Bowel Movements 1 Narrative: GENERAL: in NAD, obese SKIN: Warm and dry. HEAD: Atraumatic. Normocephalic. EYES: Pupils equal and round. No scleral icterus. ENT: No nasal bleeding or discharge. Mucous membranes pink and moist. NECK: Trachea midline. No JVD. CARDIOVASCULAR: Regular rate and rhythm. RESPIRATORY: No accessory muscle use. GASTROINTESTINAL: Abdomen soft, non-tender, nondistended. MUSCULOSKELETAL: Extremities without clubbing, cyanosis, or edema. No obvious deformities. NEUROLOGICAL: Sleeping, arousable states her name falls back asleep, sitting up , no gaze deviation, no facial asymmetry moving all limbs to gravity, gait not assessed secondary to fall her PSYCHIATRIC: Calm - Constitutional no acute distress - Routine HEENT Exam Head: Present: normocephalic - Urinary Catheter Management Suprapubic Cath placed during this visit: yes, but has since been removed by the nurse Reason for continuing: Not indwelling catheter Insertion date: 09/26/18 Insertion time: 02:00 Removal date: 09/26/18 Removal time: 02:00 Objective Laboratory Results - last 24 hr 09/26/18 09/26/18 07:19 15:36 Puncture Site Right radial Patient Temperature 98.6 O2 Saturation 90 ABG pH 7.42 ABG pCO2 46 H ABG pO2 65 ABG HCO3 29 H ABG O2 Content 16.0 ABG Base Excess 5.0 H ABG Methemoglobin 1.2 Christiano Test Y Hemoglobin 12.7 Carboxyhemoglobin 1.5 O2 Delivery Device Room air Liter Flow 21.00 Critical Value No Sodium 143 Potassium 3.8 D Chloride 107 Carbon Dioxide 29.1 Anion Gap 7 BUN 12 Creatinine 0.79 Estimated GFR 74 L Random Glucose 123 H Calcium 9.1 Review/Management - Diagnosis (1) Spells of decreased attentiveness Code(s): R68.89 - Other general symptoms and signs Status: Acute Current Visit: Yes (2) Acute UTI Code(s): N39.0 - Urinary tract infection, site not specified Status: Acute Current Visit: Yes (3) Acute kidney injury Code(s): N17.9 - Acute kidney failure, unspecified Status: Acute Current Visit: Yes (4) Hypertension Code(s): I10 - Essential (primary) hypertension Status: Acute Current Visit : Yes (5) Bipolar 1 disorder Code(s): F31.9 - Bipolar disorder, unspecified Status: Acute Current Visit: No (6) Anxiety Code(s): F41.9 - Anxiety disorder, unspecified Status: Acute Current Visit: No (7) Seizure Code(s): R56.9 - Unspecified convulsions Status: Acute Current Visit: Yes (8) Narcolepsy Code(s): G47.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 Patient apparently told the hospitalist on 09/23/2018 she had narcolepsy. Also of note she is on Provigil which is used for wakefulness and narcolepsy. She is on some medication such as clonazepam that could cause sleepiness. Uses as needed Other etiologies would include secondary to metabolic disturbance versus medication effect versus hypoxemia seizure is a possibility as well She had one EEG which was negative for seizure activity Recommendation sleepy off/on Repeat EEG check echo check nh3, esr Ritalin 5-10 mg twice daily can be tried to improve wakefulness Suspect high probability of underlying sleep apnea may have may require CPAP therapy which would need to be initiated in the outpatient setting can follow- up with us at our sleep center or whoever her sleep physician is Seizure fall precaution No driving, operating any heavy machinery or dangerous machinery, swimming alone for at least 6 months of being seizure, spell free.
[2018-09-27] MEDS: glipiZIDE 5 MG Tablet PO SCH (06:36)
[2018-09-27] MEDS: Famotidine 20 MG Tablet PO SCH ×2 (10:05→21:23)
[2018-09-27] MEDS: predniSONE 5 MG Tablet PO SCH (10:07)
[2018-09-27] MEDS: Rivaroxaban 20 MG Tablet PO SCH (10:07)
[2018-09-27] MEDS: Calcium Carbonate 500 MG Tablet PO SCH ×2 (10:08→21:23)
[2018-09-27] MEDS: Mirtazapine 15 MG Tablet PO SCH (10:09)
[2018-09-27] MEDS: Docusate Sodium 100 MG Capsule PO SCH ×2 (10:10→21:25)
[2018-09-27] MEDS: Lacosamide 100 MG Tablet PO SCH ×2 (10:10→21:23)
[2018-09-27] MEDS: Modafinil 200 MG Tablet PO SCH (10:11)
[2018-09-27] MEDS: Sodium Chloride 0.9% 2 ML Flush BID IV.FLUSH SCH ×2 (10:27→21:16)
[2018-09-27] MEDS: Budesonide-Formoterol 160/4.5 MCG 6 GM Inhaler INH SCH ×2 (10:27→21:36)
[2018-09-27] MEDS: Olopatadine 0.1% Opth Drops 5 ML Bottle EACH EYE SCH ×2 (10:27→21:26)
--- NOTE | 2018-09-27 11:33 | P.PNIM ---
Subjective Interval history: The patient was complaining of shortness of breath and chest pain. She said that she was having trouble breathing. She pointed to her left flank and upper chest area to show where it hurt. She seemed to have difficulty catching her breath. Discussed with nursing at the bedside. Physical Exam Vital signs: Vital Signs 09/26/18 12:00 09/26/18 12:26 09/26/18 15:34 Temperature 98.0 F Pulse Rate 63 60 61 Respiratory Rate 17 20 20 Blood Pressure 98/53 L Pulse Oximetry 91 L 09/26/18 16:00 09/26/18 20:00 09/27/18 00:00 Temperature 97.4 F L 98.5 F 98.1 F Pulse Rate 69 66 67 Respiratory Rate 16 22 18 Blood Pressure 132/68 126/59 L 122/68 Pulse Oximetry 97 94 L 95 09/27/18 08:00 09/27/18 08:19 Temperature 97.4 F L Pulse Rate 58 L Respiratory Rate 16 Blood Pressure 119/59 L Pulse Oximetry 93 L 93 L Intake & Output 09/26/18 09/27/18 09/27/18 18:59 06:59 18:59 Intake Total 240 / 240 Output Total 2149 / 0 Balance -1909 / -1909 Weight 99 kg Intake: Oral 240 / 240 Output: Urine Amount (Catheter) 2149 Suprapubic 2149 / 2149 Other: Date of Last Bowel Movement 09/23/18 09/23/18 # Bowel Movements 1 Narrative: GENERAL: Having trouble breathing. HEENT: NC, AT. CARDIOVASCULAR: Regular rate and rhythm without murmurs, gallops, or rubs. RESPIRATORY: Diffuse wheezing. GASTROINTESTINAL: Abdomen soft, non-tender, nondistended. GENITOURINARY: Suprapubic catheter in place. MUSCULOSKELETAL: No cyanosis, or edema. Chest wall tenderness to palpation. BACK: Nontender without obvious deformity. No CVA tenderness. NEURO: No gross deficits. Lethargic, slow to respond, falls asleep easily. - Urinary Catheter Management Suprapubic Cath placed during this visit: yes, but has since been removed by the nurse Reason for continuing: Not indwelling catheter Insertion date: 09/26/18 Insertion time: 02:00 Removal date: 09/26/18 Removal time: 02:00 Results - Labs CBC & Chem 7: 10/28/18 03:27 09/26/18 07:19 Laboratory Results - last 24 hr 09/26/18 15:36 Puncture Site Right radial Patient Temperature 98.6 O2 Saturation 90 ABG pH 7.42 ABG pCO2 46 H ABG pO2 65 ABG HCO3 29 H ABG O2 Content 16.0 ABG Base Excess 5.0 H ABG Methemoglobin 1.2 Christiano Test Y Hemoglobin 12.7 Carboxyhemoglobin 1.5 O2 Delivery Device Room air Liter Flow 21.00 Critical Value No - Imaging Impressions Head CT 09/26/18 00:00 CONCLUSION: 1. No acute intracranial abnormality. . Assessment and Plan - Plan 63-year-old female with multiple medical problems including diabetes, hypertension, bipolar disorder brought in to the emergency room under Elliott act. The patient was seen by psychiatry and medically cleared by ED physician but her facility will not accept her back. Patient will be in an outpatient bed with no observation services while case management fine alternative placement. However patient with UTI start IV abx Rocephyn IV monitor urine cultures until final Acute COPD exacerbation Pt with congestion and cough. CXR 09/26 unremarkable. Now has diffuse wheezing and endorsing chest pain. -Tessalon Perles and Chloraseptic spray as needed. -scheduled nebs and albuterol inhaler as needed. -Solumedrol IV standing. -repeat CXR. -EKG and trops. -oxygen as needed. UTI with indwelling catheter - suprapubic catheter Ucx with MRSA. -change antibiotics to doxycycline PO per sensitivities. -suprapubic catheter changed 09/25. CONSUELO with oliguria, has suprapubic cath. Also complicated UTI. Noted with low urine OP. Nephrology consulted, appreciate recommendations. -Hold lisinopril as with CONSUELO. -Avoid nephrotoxins. -Monitor kidney indices and follow up with nephrology. -encourage PO fluid intake. Seizure disorder/ narcolepsy ? seizure activity vs narcolepsy. Seems post-ictal at times. EEG normal. Neuro consult appreciated. -Continue home meds. -neurology following. -seizure precautions, neuro checks, Ativan as needed. PPx: Xarelto Discharge Planning: Awaiting clinical improvement, needs placement
[2018-09-27 12:25] LABS: Hematocrit 42.1 % (35.0-46.0); Hemoglobin 14.1 gm/dL (11.6-15.3); Mean Corpuscular HGB Conc 33.5 % (32.0-36.0); Mean Corpuscular Volume 83.6 fL (80.0-100.0); Mean Platelet Volume 9.2 fL (7.0-11.0); Platelet Count 225 th/mm3 (150-450); Red Blood Count 5.04 mil/mm3 (4.00-5.30); Red Cell Distribution Width 15.5 % (11.6-17.2); White Blood Count 8.6 th/mm3 (4.0-11.0)
[2018-09-27 12:36] LABS: Alanine Aminotransferase 26 U/L (10-53); Albumin 3.8 g/dL (3.4-5.0); Anion Gap 4 meq/L (5-15); Aspartate Aminotransferase 22 U/L (15-37); Blood Urea Nitrogen 10 mg/dL (7-18); Carbon Dioxide 30.6 meq/L (21.0-32.0); Chloride 104 meq/L (98-107); Glomerular Filtration Rate 66 mL/min (>89); Glucose,Random 163 mg/dL (74-106); Sodium 139 meq/L (136-145)
[2018-09-27 12:37] LABS: Potassium 4.7 meq/L (3.5-5.1)
[2018-09-27 12:40] LABS: Alkaline Phosphatase 118 U/L (45-117); Total Protein 7.6 g/dL (6.4-8.2)
[2018-09-27] MEDS: MethylPREDNISolone Sod Succinate Inj 40 MG/ML Vial IV.PUSH SCH ×2 (14:03→21:22)
[2018-09-27] MEDS: Duloxetine 60 MG DR Capsule PO SCH (21:22)
[2018-09-28 03:52] LABS: Anion Gap 11 meq/L (5-15); Blood Urea Nitrogen 14 mg/dL (7-18); Calcium 9.5 mg/dL (8.5-10.1); Carbon Dioxide 25.9 meq/L (21.0-32.0); Chloride 100 meq/L (98-107); Glomerular Filtration Rate 49 mL/min (>89); Glucose,Random 256 mg/dL (74-106); Potassium 4.4 meq/L (3.5-5.1); Sodium 137 meq/L (136-145)
[2018-09-28] MEDS: MethylPREDNISolone Sod Succinate Inj 40 MG/ML Vial IV.PUSH SCH ×2 (05:29→13:00)
--- NOTE | 2018-09-28 08:54 | P.PNNEU ---
Subjective Subjective Comments: No cp, no dyspnea, no foote, no focal weakness, no vision loss. Patient states throat hurts, states she is never been on Ritalin but would like to try it for narcolepsy Active Medications: Active Medications Acetaminophen (Tylenol) 650 mg PO Q4H PRN PRN Reason: PAIN SCALE 1 TO 10 Albuterol (Duoneb Neb (Dov)) 1 ampul NEB Q6HR WHILE AWAKE NEB [facility] Last Admin: 09/28/18 08:20 Dose: Not Given Albuterol (Duoneb Neb (Prn)) 1 ampul NEB Q2HR NEB PRN PRN Reason: DYSPNEA Artificial Tears (Tears Naturale Opth Drops) 1 drop EACH EYE BID PRN PRN Reason: DRY EYE(S) Benzonatate (Tessalon Perles) 200 mg PO Q8H PRN PRN Reason: COUGH Last Admin: 09/26/18 02:15 Dose: 200 mg Bisacodyl (Dulcolax Ec) 5 mg PO DAILY [facility] Last Admin: 09/27/18 10:06 Dose: 5 mg Budesonide/Formoterol Fumarate (Symbicort 160/4.5 Mcg Inh) 2 puff INH BID [facility] Last Admin: 09/27/18 21:36 Dose: 2 puff Bumetanide (Bumex) 2 mg PO DAILY [facility] Last Admin: 09/24/18 09:48 Dose: Not Given Calcium Carbonate (Oscal) 500 mg PO BID [facility] Last Admin: 09/27/18 21:23 Dose: 500 mg Clonazepam (Klonopin) 0.5 mg PO BID [facility] Last Admin: 09/27/18 21:23 Dose: 0.5 mg Clonidine HCl (Catapres) 0.1 mg PO BID [facility] Last Admin: 09/27/18 21:23 Dose: 0.1 mg Docusate Sodium (Colace) 100 mg PO BID [facility] Last Admin: 09/27/18 21:25 Dose: 100 mg Duloxetine HCl (Cymbalta) 120 mg PO DAILY@2100 [facility] Last Admin: 09/27/18 21:22 Dose: 120 mg Famotidine (Pepcid) 10 mg PO BID [facility] Last Admin: 09/27/18 21:23 Dose: 10 mg Fluticasone Propionate (Flonase Nasal [place]) 1 spray EACH NARE DAILY [facility] Last Admin: 09/27/18 10:27 Dose: Not Given Glipizide (Glucotrol) 2.5 mg PO DAILYAC [facility] Last Admin: 09/27/18 06:36 Dose: Not Given Glycopyrrolate (Robinul) 1 mg PO TID [facility] Last Admin: 09/27/18 18:22 Dose: 1 mg Guaifenesin/Dextromethorphan (Robitussin Dm 200/20 Mg/10 Ml Liq) 10 ml PO Q4H PRN PRN Reason: congestion Last Admin: 09/26/18 02:16 Dose: 10 ml Hydralazine HCl (Apresoline) 10 mg PO QID PRN PRN Reason: sbp> 180 Hydralazine HCl (Apresoline) 100 mg PO TID [facility] Last Admin: 09/27/18 18:22 Dose: 100 mg Sodium Chloride (Ns Inj) 1,000 mls @ 0 mls/hr IV.SIG BOLUS [facility] Doxycycline Hyclate 100 mg/ (Sodium Chloride) 100 mls @ 100 mls/hr IV.SIG Q12H [facility] Last Infusion: 09/28/18 06:30 Dose: Infused Lacosamide (Vimpat) 200 mg PO BID [facility] Last Admin: 09/27/18 21:23 Dose: 200 mg Levetiracetam (Keppra) 1,500 mg PO BID [facility] Last Admin: 09/27/18 21:22 Dose: 1,500 mg Lorazepam (Ativan Inj) 2 mg IV.PUSH Q10M PRN PRN Reason: SEE LABEL COMMENTS Last Admin: 09/26/18 06:50 Dose: 2 mg Meclizine HCl (Antivert) 25 mg PO TID [facility] Last Admin: 09/27/18 18:22 Dose: 25 mg Methylprednisolone Sodium Succinate (Solumedrol Inj) 40 mg IV.PUSH Q8HR [facility] Last Admin: 09/28/18 05:29 Dose: 40 mg Mirtazapine (Remeron) 7.5 mg PO DAILY [facility] Last Admin: 09/27/18 10:09 Dose: 7.5 mg Miscellaneous (Pill Splitter) 1 each OTHER UNSCH PRN PRN Reason: SEE LABEL COMMENTS Modafinil (Provigil) 200 mg PO DAILY@0900 [facility] Last Admin: 09/27/18 10:11 Dose: 200 mg Multivitamins (Theragran) 1 tab PO DAILY [facility] Last Admin: 09/27/18 10:09 Dose: 1 tab Mupirocin (Bactroban 2% Oint) 1 applicatio TOPICAL BID [facility] Last Admin: 09/27/18 21:29 Dose: 1 applicatio Olopatadine HCl (Patanol 0.1% Opth Drops) 1 drop EACH EYE BID [facility] Last Admin: 09/27/18 21:26 Dose: 1 drop Ondansetron HCl (Zofran Odt) 4 mg PO QID PRN PRN Reason: Nausea Pt Own: Linzess (145mcg) 0 each PO DAILY [facility] Polyethylene Glycol (Miralax) 17 gm PO BID PRN PRN Reason: Constipation Potassium Chloride (Klor-Con 10) 10 meq PO BID [facility] Last Admin: 09/27/18 21:23 Dose: 10 meq Rivaroxaban (Xarelto) 20 mg PO DAILY [facility] Last Admin: 09/27/18 10:07 Dose: 20 mg Sodium Chloride (Ns Flush) 2 ml IV.FLUSH BID [facility] Last Admin: 09/27/18 21:16 Dose: 2 ml Sodium Chloride (Ns Flush) 2 ml IV.FLUSH PRN PRN PRN Reason: FLUSH AFTER USING IV ACCESS Throat Lozenges (Chloraseptic [place]) 2 spray OROPHARYNG Q2H PRN PRN Reason: SORE THROAT Last Admin: 09/24/18 13:34 Dose: 2 spray Allergies/Adverse Reactions: Allergies Allergy/AdvReac Type Severity Reaction Status Date / Time aspirin Allergy Unknown Abdominal Verified 08/21/18 01:52 Pain haloperidol [From Haldol] Allergy Unknown Abdominal Verified 08/21/18 01:52 Pain iodine Allergy Unknown Abdominal Verified 08/21/18 01:52 Pain metformin Allergy Unknown Abdominal Verified 08/21/18 01:52 Pain metoclopramide Allergy Unknown Abdominal Verified 08/21/18 01:52 Pain morphine Allergy Unknown Abdominal Verified 08/21/18 01:52 Pain pregabalin [From Lyrica] Allergy Unknown Abdominal Verified 08/21/18 01:52 Pain sucralfate [From Carafate] Allergy Unknown Abdominal Verified 08/21/18 01:52 Pain Review of Systems All other systems reviewed negative except as stated in HPI Physical Exam Vital signs: Vital Signs 09/27/18 12:00 09/27/18 13:43 09/27/18 16:00 Temperature 98.0 F 97.8 F Pulse Rate 112 H 81 78 Respiratory Rate 17 18 16 Blood Pressure 127/71 136/63 Pulse Oximetry 93 L 96 09/27/18 19:24 09/27/18 20:00 09/28/18 00:00 Temperature 99.2 F 98.5 F Pulse Rate 78 91 H 76 Respiratory Rate 16 19 19 Blood Pressure 126/56 L 158/87 H Pulse Oximetry 93 L 93 L Intake & Output 09/27/18 09/28/18 09/28/18 18:59 06:59 18:59 Intake Total 200 / 200 520 / 520 Output Total 1475 / 1475 Balance 200 / 200 -955 / -955 Weight 101.9 kg Intake: IV 200 / 200 Doxy 100 Inj 100 MG In NS Inj 200 / 200 100 ML @ 100 mls/hr IV.SIG Q12H DOV Rx#:[id number] Oral 520 / 520 Output: Urine Amount (Catheter) 1475 / 1475 Suprapubic 1475 / 1475 Other: Date of Last Bowel Movement 09/23/18 09/25/18 # Bowel Movements 1 Narrative: GENERAL: in NAD, obese SKIN: Warm and dry. HEAD: Atraumatic. Normocephalic. EYES: Pupils equal and round. No scleral icterus. ENT: No nasal bleeding or discharge. NECK: Trachea midline. No JVD. CARDIOVASCULAR: Regular rate and rhythm. RESPIRATORY: No accessory muscle use. GASTROINTESTINAL: Abdomen soft, non-tender, nondistended. MUSCULOSKELETAL: Extremities without clubbing, cyanosis, or edema. No obvious deformities. NEUROLOGICAL: Awake alert oriented x3, follows, hypophonic speech, orofacial dyskinesias as well as occasional choreiform movements of her upper extremities , no gaze deviation, no facial asymmetry moving all limbs to gravity, gait not assessed secondary to fall her PSYCHIATRIC: Calm - Constitutional no acute distress - Routine HEENT Exam Head: Present: normocephalic - Urinary Catheter Management Suprapubic Cath placed during this visit: yes, but has since been removed by the nurse Reason for continuing: Not indwelling catheter Insertion date: 09/26/18 Insertion time: 02:00 Removal date: 09/26/18 Removal time: 02:00 Objective Laboratory Results - last 24 hr 09/27/18 09/27/1818 11:20 11:20 11:20 WBC 8.6 RBC 5.04 Hgb 14.1 Hct 42.1 MCV 83.6 MCH 28.0 MCHC 33.5 RDW 15.5 Plt Count 225 D MPV 9.2 Sodium 139 Potassium 4.7 D Chloride 104 Carbon Dioxide 30.6 Anion Gap 4 L BUN 10 Creatinine 0.87 Estimated GFR 66 L Random Glucose 163 H Calcium 10.0 D Total Bilirubin 0.4 Direct Bilirubin 0.1 Indirect Bilirubin 0.3 AST 22 ALT 26 Alkaline Phosphatase 118 H Troponin I Less than 0.02 L Cancelled Total Protein 7.6 Albumin 3.8 09/27/18 09/28/18 19:54 02:43 WBC RBC Hgb Hct MCV MCH MCHC RDW Plt Count MPV Sodium 137 Potassium 4.4 Chloride 100 Carbon Dioxide 25.9 Anion Gap 11 BUN 14 Creatinine 1.12 H Estimated GFR 49 L Random Glucose 256 H Calcium 9.5 Total Bilirubin Direct Bilirubin Indirect Bilirubin AST ALT Alkaline Phosphatase Troponin I Less than 0.02 L Less than 0.02 L Total Protein Albumin Review/Management - Diagnosis (1) Spells of decreased attentiveness Code(s): R68.89 - Other general symptoms and signs Status: Acute Current Visit: Yes (2) Acute UTI Code(s): N39.0 - Urinary tract infection, site not specified Status: Acute Current Visit: Yes (3) Acute kidney injury Code(s): N17.9 - Acute kidney failure, unspecified Status: Acute Current Visit: Yes (4) Hypertension Code(s): I10 - Essential (primary) hypertension Status: Acute Current Visit : Yes (5) Bipolar 1 disorder Code(s): F31.9 - Bipolar disorder, unspecified Status: Acute Current Visit: No (6) Anxiety Code(s): F41.9 - Anxiety disorder, unspecified Status: Acute Current Visit: No (7) Seizure Code(s): R56.9 - Unspecified convulsions Status: Acute Current Visit: Yes (8) Narcolepsy Code(s): G47.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 Patient apparently told the hospitalist on 09/23/2018 she had narcolepsy. Also of note she is on Provigil which is used for wakefulness and narcolepsy. She is on some medication such as clonazepam that could cause sleepiness. Uses as needed Other etiologies would include secondary to metabolic disturbance versus medication effect versus hypoxemia seizure is a possibility as well She had one EEG which was negative for seizure activity Recommendation More alert this a.m. oriented x3 Try Ritalin 5 mg p.o. twice daily every morning and q. afternoon on noticed that she is slightly hypertensive we need to watch her blood pressures on it check echo; completed this morning check nh3, esr Suspect high probability of underlying sleep apnea may have may require CPAP therapy which would need to be initiated in the outpatient setting can follow- up with us at our sleep center or whoever her sleep physician is Seizure fall precaution No driving, operating any heavy machinery or dangerous machinery, swimming alone for at least 6 months of being seizure, spell free.
[2018-09-28] MEDS: Famotidine 20 MG Tablet PO SCH ×2 (09:51→20:55)
[2018-09-28] MEDS: levETIRAcetam 500 MG Tablet PO SCH ×2 (09:51→20:56)
[2018-09-28] MEDS: Modafinil 200 MG Tablet PO SCH (09:51)
[2018-09-28] MEDS: Calcium Carbonate 500 MG Tablet PO SCH ×2 (09:52→20:54)
[2018-09-28] MEDS: Mirtazapine 15 MG Tablet PO SCH (09:52)
[2018-09-28] MEDS: Rivaroxaban 20 MG Tablet PO SCH (09:54)
[2018-09-28] MEDS: Docusate Sodium 100 MG Capsule PO SCH ×2 (09:55→20:55)
[2018-09-28] MEDS: clonazePAM 0.5 MG Tablet PO SCH ×3 (09:55→17:44)
[2018-09-28] MEDS: glipiZIDE 5 MG Tablet PO SCH (09:56)
[2018-09-28] MEDS: Lacosamide 100 MG Tablet PO SCH ×2 (09:56→20:54)
[2018-09-28] MEDS: Budesonide-Formoterol 160/4.5 MCG 6 GM Inhaler INH SCH ×2 (09:57→20:57)
[2018-09-28] MEDS: Sodium Chloride 0.9% 2 ML Flush BID IV.FLUSH SCH ×2 (09:58→20:57)
[2018-09-28] MEDS: Olopatadine 0.1% Opth Drops 5 ML Bottle EACH EYE SCH ×2 (09:58→20:57)
--- NOTE | 2018-09-28 10:33 | ECHRPT ---
Indication: CONCLUSIONS Technically difficult study with very limited echocardiographic window visualization. The left ventricular systolic function appears normal with an estimated ejection fraction in the ran ge of 60- 65%. BP: / HR: Rhythm: MEASUREMENTS (Male / Female) Normal Values Technical Quality: 2D ECHO LV Diastolic Diameter PLAX 5.1 cm 4.2 - 5.9 / 3.9 - 5.3 cm LV Systolic Diameter PLAX 3.7 cm IVS Diastolic Thickness 1.3 cm 0.6 - 1.0 / 0.6 - 0.9 cm LVPW Diastolic Thickness 1.2 cm 0.6 - 1.0 / 0.6 - 0.9 cm LV Relative Wall Thickness 0.5 RV Internal Dim ED PLAX 2.3 cm M-MODE Aortic Root Diameter MM 3.4 cm LA Systolic Diameter MM 3.8 cm LA Ao Ratio MM 1.1 AV Cusp Separation MM 1.7 cm DOPPLER Mitral E Point Velocity 109.0 cm/s Mitral A Point Velocity 96.4 cm/s Mitral E to A Ratio 1.1 FINDINGS LEFT VENTRICLE There was limited left ventricular wall motion assessment due to poor endocardial visualization. The left ventricular systolic function is normal with an estimated ejection fraction in the range of 60-65%. Wall thickness is measured at the upper limits of normal. RIGHT VENTRICLE The right ventricle was not well visualized. LEFT ATRIUM The left atrial size is normal. RIGHT ATRIUM The right atrial size is normal. There is a pacemaker wire present in the right atrial cavity. ATRIAL SEPTUM Normal atrial septal thickness without atrial level shunting by limited color doppler interrogation. AORTA The aortic root and proximal ascending aorta are not well visualized. MITRAL VALVE Structurally normal mitral valve. No mitral valve stenosis or regurgitation. AORTIC VALVE The aortic valve is not well visualized. . No aortic valve stenosis or regurgitation. TRICUSPID VALVE The tricuspid valve is not well visualized. No tricuspid regurgitation. PULMONARY VALVE No pulmonary valve regurgitation or stenosis. VESSELS The inferior vena cava was not well visualized. PERICARDIUM No obvious pericardial effusion. Steve Meek (Electronically Signed) Final Date:28 September 2018 10:32
[2018-09-28] MEDS: Menthol 5.8 MG Lozenge BUCCAL PRN ×2 (12:53→17:47)
[2018-09-28] MEDS: Methylphenidate HCl 5 MG Tablet PO SCH (12:54)
--- NOTE | 2018-09-28 15:26 | P.PNIM ---
Subjective Interval history: The patient was sitting up in a chair. She had questions about her Ritalin. She also wanted to know if her Klonopin could be increased in frequency. She said she is on BiPAP at night. She is unsure of her settings. She said that she is not on Remeron anymore because it causes migraines. Discussed with nursing. Physical Exam Vital signs: Vital Signs 09/27/18 16:00 09/27/18 19:24 09/27/18 20:00 Temperature 97.8 F 99.2 F Pulse Rate 78 78 91 H Respiratory Rate 16 16 19 Blood Pressure 136/63 126/56 L Pulse Oximetry 96 93 L 09/28/18 00:00 09/28/18 11:51 09/28/18 12:35 Temperature 98.5 F 96.5 F L Pulse Rate 76 74 75 Respiratory Rate 19 14 Blood Pressure 158/87 H 176/90 H Pulse Oximetry 93 L 98 Intake & Output 09/27/18 09/28/18 09/28/18 18:59 06:59 18:59 Intake Total 200 / 200 520 / 520 Output Total 1475 / 1475 Balance 200 / 200 -955 / -955 Weight 101.9 kg Intake: IV 200 / 200 Doxy 100 Inj 100 MG In NS Inj 200 / 200 100 ML @ 100 mls/hr IV.SIG Q12H NICK Rx#:[id number] Oral 520 / 520 Output: Urine Amount (Catheter) 1475 / 1475 Suprapubic 1475 / 1475 Other: Date of Last Bowel Movement 09/23/18 09/25/18 # Bowel Movements 1 Narrative: GENERAL: In NAD, obese. SKIN: Warm and dry. HEAD: Atraumatic. Normocephalic. EYES: Pupils equal and round. No scleral icterus. ENT: No nasal bleeding or discharge. NECK: Trachea midline. No JVD. CARDIOVASCULAR: Regular rate and rhythm. RESPIRATORY: No accessory muscle use. Wheezing has improved. GASTROINTESTINAL: Abdomen soft, non-tender, nondistended. MUSCULOSKELETAL: Extremities without clubbing, cyanosis, or edema. No obvious deformities. NEUROLOGICAL: Awake, alert & oriented x3. Moving upper and lower extremities. PSYCHIATRIC: Calm. - Urinary Catheter Management Suprapubic Cath placed during this visit: yes, but has since been removed by the nurse Reason for continuing: Not indwelling catheter Insertion date: 09/26/18 Insertion time: 02:00 Removal date: 09/26/18 Removal time: 02:00 Results - Labs CBC & Chem 7: 09/27/18 11:20 09/28/18 02:43 Laboratory Results - last 24 hr 09/27/18 09/28/18 19:54 02:43 Sodium 137 Potassium 4.4 Chloride 100 Carbon Dioxide 25.9 Anion Gap 11 BUN 14 Creatinine 1.12 H Estimated GFR 49 L Random Glucose 256 H Calcium 9.5 Troponin I Less than 0.02 L Less than 0.02 L Assessment and Plan - Plan 63-year-old female with multiple medical problems including diabetes, hypertension, bipolar disorder brought in to the emergency room under Elliott act. The patient was seen by psychiatry and medically cleared by ED physician but her facility will not accept her back. Patient will be in an outpatient bed with no observation services while case management fine alternative placement. However patient with UTI start IV abx Rocephyn IV monitor urine cultures until final Acute COPD exacerbation Pt with congestion and cough. CXR 09/26 unremarkable. 09/27 had diffuse wheezing and endorsing chest pain. Chest pain resolved. Trops negative. EKG without acute ischemia. CXR unremarkable. -Tessalon Perles and Chloraseptic spray as needed. -scheduled nebs and albuterol inhaler as needed. -Solumedrol IV changed to prednisone 20 mg BID. -oxygen as needed. -incentive spirometry. UTI with indwelling catheter - suprapubic catheter Ucx with MRSA. -change antibiotics to doxycycline PO per sensitivities. -suprapubic catheter changed 09/25. CONSUELO with oliguria, has suprapubic cath. Also complicated UTI. Noted with low urine OP. Nephrology consulted, appreciate recommendations. -Hold lisinopril and Bumex as with CONSUELO. -Avoid nephrotoxins. -Monitor kidney indices and follow up with nephrology as an outpt. -encourage PO fluid intake. Seizure disorder/ narcolepsy ? seizure activity vs narcolepsy. Seems post-ictal at times. EEG normal. Neuro consult appreciated. -Continue home meds. -neurology following. Ritalin added. -seizure precautions, neuro checks, Ativan as needed. ALIDA Uses BiPAP as an outpt. -resume BiPAP HS. PPx: Xarelto Discharge Planning: Anticipate d/c to SNF in AM if stable
--- NOTE | 2018-09-28 16:38 | ECG ---
Date Performed: 09/27/2018 Time Performed: 12:14:26 PTAGE: 63 years EKG: Sinus rhythm RIGHT BUNDLE BRANCH BLOCK Heavy baseline artifact. Abnormal ECG PREVIOUS TRACING : 07/19/2018 18.16 DOCTOR: Olaf Fox Interpretating Date/Time 09/28/2018 16:36:55
[2018-09-28] MEDS: Duloxetine 60 MG DR Capsule PO SCH (20:55)
[2018-09-28] MEDS: predniSONE 20 MG Tablet PO SCH (20:56)
[2018-09-29] MEDS: glipiZIDE 5 MG Tablet PO SCH (06:28)
[2018-09-29] MEDS: Methylphenidate HCl 5 MG Tablet PO SCH ×2 (06:28→12:20)
[2018-09-29] MEDS: Lacosamide 100 MG Tablet PO SCH (08:03)
[2018-09-29] MEDS: Docusate Sodium 100 MG Capsule PO SCH (08:03)
[2018-09-29] MEDS: Calcium Carbonate 500 MG Tablet PO SCH (08:03)
[2018-09-29] MEDS: predniSONE 20 MG Tablet PO SCH (08:03)
[2018-09-29] MEDS: levETIRAcetam 500 MG Tablet PO SCH (08:04)
[2018-09-29] MEDS: Famotidine 20 MG Tablet PO SCH (08:04)
[2018-09-29] MEDS: Modafinil 200 MG Tablet PO SCH (08:05)
[2018-09-29] MEDS: Rivaroxaban 20 MG Tablet PO SCH (08:05)
[2018-09-29] MEDS: clonazePAM 0.5 MG Tablet PO SCH ×2 (08:05→12:20)
[2018-09-29] MEDS: Olopatadine 0.1% Opth Drops 5 ML Bottle EACH EYE SCH (08:06)
[2018-09-29] MEDS: Menthol 5.8 MG Lozenge BUCCAL PRN ×2 (08:06→11:28)
[2018-09-29] MEDS: Budesonide-Formoterol 160/4.5 MCG 6 GM Inhaler INH SCH (08:06)
[2018-09-29] MEDS: Sodium Chloride 0.9% 2 ML Flush BID IV.FLUSH SCH (08:08)
[2018-09-29 08:56] LABS: Calcium 9.2 mg/dL (8.5-10.1); Carbon Dioxide 28.7 meq/L (21.0-32.0)
--- NOTE | 2018-09-29 09:29 | P.PNNEU ---
Subjective Subjective Comments: No cp, no dyspnea, no foote, no focal weakness, no vision loss. Patient states she is BiPAP at home. States despite using this and modafinil she still has sleep attacks during the day she is asking when she can go home Active Medications: Active Medications Acetaminophen (Tylenol) 650 mg PO Q4H PRN PRN Reason: PAIN SCALE 1 TO 10 Albuterol (Duoneb Neb (Dov)) 1 ampul NEB Q6HR WHILE AWAKE NEB [facility] Last Admin: 09/29/18 08:49 Dose: 1 ampul Albuterol (Duoneb Neb (Prn)) 1 ampul NEB Q2HR NEB PRN PRN Reason: DYSPNEA Artificial Tears (Tears Naturale Opth Drops) 1 drop EACH EYE BID PRN PRN Reason: DRY EYE(S) Benzonatate (Tessalon Perles) 200 mg PO Q8H PRN PRN Reason: COUGH Last Admin: 09/26/18 02:15 Dose: 200 mg Bisacodyl (Dulcolax Ec) 5 mg PO DAILY [facility] Last Admin: 09/29/18 08:06 Dose: 5 mg Budesonide/Formoterol Fumarate (Symbicort 160/4.5 Mcg Inh) 2 puff INH BID [facility] Last Admin: 09/29/18 08:06 Dose: 2 puff Calcium Carbonate (Oscal) 500 mg PO BID [facility] Last Admin: 09/29/18 08:03 Dose: 500 mg Clonazepam (Klonopin) 0.5 mg PO TID [facility] Last Admin: 09/29/18 08:05 Dose: 0.5 mg Clonidine HCl (Catapres) 0.1 mg PO BID [facility] Last Admin: 09/29/18 08:05 Dose: 0.1 mg Docusate Sodium (Colace) 100 mg PO BID [facility] Last Admin: 09/29/18 08:03 Dose: 100 mg Doxycycline Hyclate (Vibratab) 100 mg PO Q12HR [facility] Last Admin: 09/29/18 08:05 Dose: 100 mg Duloxetine HCl (Cymbalta) 120 mg PO DAILY@2100 [facility] Last Admin: 09/28/18 20:55 Dose: 120 mg Famotidine (Pepcid) 10 mg PO BID [facility] Last Admin: 09/29/18 08:04 Dose: 10 mg Fluticasone Propionate (Flonase Nasal Griffin) 1 spray EACH NARE DAILY [facility] Last Admin: 09/29/18 08:07 Dose: 1 spray Glipizide (Glucotrol) 2.5 mg PO DAILYAC [facility] Last Admin: 09/29/18 06:28 Dose: 2.5 mg Glycopyrrolate (Robinul) 1 mg PO TID [facility] Last Admin: 09/29/18 08:05 Dose: 1 mg Guaifenesin/Dextromethorphan (Robitussin Dm 200/20 Mg/10 Ml Liq) 10 ml PO Q4H PRN PRN Reason: congestion Last Admin: 09/26/18 02:16 Dose: 10 ml Hydralazine HCl (Apresoline) 10 mg PO QID PRN PRN Reason: sbp> 180 Hydralazine HCl (Apresoline) 100 mg PO TID [facility] Last Admin: 09/29/18 08:06 Dose: 100 mg Sodium Chloride (Ns Inj) 1,000 mls @ 0 mls/hr IV.SIG BOLUS [facility] Lacosamide (Vimpat) 200 mg PO BID [facility] Last Admin: 09/29/18 08:03 Dose: 200 mg Levetiracetam (Keppra) 1,500 mg PO BID [facility] Last Admin: 09/29/18 08:04 Dose: 1,500 mg Lorazepam (Ativan Inj) 2 mg IV.PUSH Q10M PRN PRN Reason: SEE LABEL COMMENTS Last Admin: 09/26/18 06:50 Dose: 2 mg Meclizine HCl (Antivert) 25 mg PO TID [facility] Last Admin: 09/29/18 08:03 Dose: 25 mg Menthol (Paoli) 1 lozenge BUCCAL UNSCH PRN PRN Reason: sore throat, cough Last Admin: 09/29/18 08:06 Dose: 1 lozenge Methylphenidate HCl (Ritalin) 5 mg PO BID@0700,1200 [facility] Last Admin: 09/29/18 06:28 Dose: 5 mg Miscellaneous (Pill Splitter) 1 each OTHER UNSCH PRN PRN Reason: SEE LABEL COMMENTS Modafinil (Provigil) 200 mg PO DAILY@0900 [facility] Last Admin: 09/29/18 08:05 Dose: 200 mg Multivitamins (Theragran) 1 tab PO DAILY [facility] Last Admin: 09/29/18 08:03 Dose: 1 tab Mupirocin (Bactroban 2% Oint) 1 applicatio TOPICAL BID [facility] Last Admin: 09/29/18 08:07 Dose: 1 applicatio Olopatadine HCl (Patanol 0.1% Opth Drops) 1 drop EACH EYE BID [facility] Last Admin: 09/29/18 08:06 Dose: 1 drop Ondansetron HCl (Zofran Odt) 4 mg PO QID PRN PRN Reason: Nausea Pt Own: Linzess (145mcg) 0 each PO DAILY [facility] Polyethylene Glycol (Miralax) 17 gm PO BID PRN PRN Reason: Constipation Potassium Chloride (Klor-Con 10) 10 meq PO BID [facility] Last Admin: 09/29/18 08:03 Dose: 10 meq Prednisone (Deltasone) 20 mg PO BID [facility] Last Admin: 09/29/18 08:03 Dose: 20 mg Rivaroxaban (Xarelto) 20 mg PO DAILY [facility] Last Admin: 09/29/18 08:05 Dose: 20 mg Sodium Chloride (Ns Flush) 2 ml IV.FLUSH BID [facility] Last Admin: 09/29/18 08:08 Dose: Not Given Sodium Chloride (Ns Flush) 2 ml IV.FLUSH PRN PRN PRN Reason: FLUSH AFTER USING IV ACCESS Throat Lozenges (Chloraseptic Griffin) 2 spray OROPHARYNG Q2H PRN PRN Reason: SORE THROAT Last Admin: 09/24/18 13:34 Dose: 2 spray Allergies/Adverse Reactions: Allergies Allergy/AdvReac Type Severity Reaction Status Date / Time aspirin Allergy Unknown Abdominal Verified 08/21/18 01:52 Pain haloperidol [From Haldol] Allergy Unknown Abdominal Verified 08/21/18 01:52 Pain iodine Allergy Unknown Abdominal Verified 08/21/18 01:52 Pain metformin Allergy Unknown Abdominal Verified 08/21/18 01:52 Pain metoclopramide Allergy Unknown Abdominal Verified 08/21/18 01:52 Pain morphine Allergy Unknown Abdominal Verified 08/21/18 01:52 Pain pregabalin [From Lyrica] Allergy Unknown Abdominal Verified 08/21/18 01:52 Pain sucralfate [From Carafate] Allergy Unknown Abdominal Verified 08/21/18 01:52 Pain Review of Systems All other systems reviewed negative except as stated in HPI Physical Exam Vital signs: Vital Signs 09/28/18 11:51 09/28/18 12:35 09/28/18 16:00 Temperature 96.5 F L 98.1 F Pulse Rate 74 75 98 H Respiratory Rate 14 18 Blood Pressure 176/90 H 142/78 H Pulse Oximetry 98 95 09/28/18 20:00 09/29/18 00:00 09/29/18 07:35 Temperature 98.8 F 98.9 F 97.6 F Pulse Rate 76 68 60 Respiratory Rate 18 21 16 Blood Pressure 113/56 L 155/87 H 177/62 H Pulse Oximetry 96 95 99 09/29/18 08:51 Temperature Pulse Rate 62 Respiratory Rate 18 Blood Pressure Pulse Oximetry Intake & Output 09/28/18 09/29/18 09/29/18 18:59 06:59 18:59 Intake Total 1720 / 1720 760 / 760 Output Total 2475 / 2475 2800 / 2800 Balance -755 / -755 -2040 / -2040 Weight 101.9 kg 102 kg Intake: Oral 1720 / 1720 760 / 760 Output: Urine 1000 / 1000 Urine Amount (Catheter) 1475 / 1475 2800 / 2800 Suprapubic 1475 / 1475 2800 / 2800 Other: Date of Last Bowel Movement 09/25/18 09/25/18 # Bowel Movements 1 Narrative: GENERAL: in NAD, obese SKIN: Warm and dry. HEAD: Atraumatic. Normocephalic. EYES: Pupils equal and round. No scleral icterus. ENT: No nasal bleeding or discharge. NECK: Trachea midline. No JVD. CARDIOVASCULAR: Regular rate and rhythm. RESPIRATORY: No accessory muscle use. GASTROINTESTINAL: Abdomen soft, non-tender, nondistended. MUSCULOSKELETAL: Extremities without clubbing, cyanosis, or edema. No obvious deformities. NEUROLOGICAL: Awake alert oriented x3, sitting up eating breakfast, fully alert conversation better follows, hypophonic speech, less orofacial dyskinesias, no gaze deviation, no facial asymmetry moving all limbs to gravity, gait not assessed secondary to fall her PSYCHIATRIC: Calm - Constitutional no acute distress - Routine HEENT Exam Head: Present: normocephalic Eye: Present: EOMI - Urinary Catheter Management Suprapubic Cath placed during this visit: yes, but has since been removed by the nurse Reason for continuing: Not indwelling catheter Insertion date: 09/26/18 Insertion time: 02:00 Removal date: 09/26/18 Removal time: 02:00 Objective Laboratory Results - last 24 hr 09/29/18 07:07 Sodium 141 Potassium 4.0 Chloride 104 Carbon Dioxide 28.7 Anion Gap 8 BUN 25 H Creatinine 0.89 Estimated GFR 64 L Random Glucose 230 H Calcium 9.2 Review/Management - Diagnosis (1) Spells of decreased attentiveness Code(s): R68.89 - Other general symptoms and signs Status: Acute Current Visit: Yes (2) Acute UTI Code(s): N39.0 - Urinary tract infection, site not specified Status: Acute Current Visit: Yes (3) Acute kidney injury Code(s): N17.9 - Acute kidney failure, unspecified Status: Acute Current Visit: Yes (4) Hypertension Code(s): I10 - Essential (primary) hypertension Status: Acute Current Visit : Yes (5) Bipolar 1 disorder Code(s): F31.9 - Bipolar disorder, unspecified Status: Acute Current Visit: No (6) Anxiety Code(s): F41.9 - Anxiety disorder, unspecified Status: Acute Current Visit: No (7) Seizure Code(s): R56.9 - Unspecified convulsions Status: Acute Current Visit: Yes (8) Narcolepsy Code(s): G47.419 - Narcolepsy without cataplexy Status: Acute Current Visit : No (9) Sleep apnea Code(s): G47.30 - Sleep apnea, unspecified Status: Acute Current Visit: Yes - Review/Management Plan: Probable sleep attacks May have underlying obesity hypoventilation syndrome with comorbid sleep apnea narcolepsy Recommendation Fully alert this morning and, conversing well. Likely related to use of BiPAP overnight also received Ritalin this morning Monitor blood pressure and pulse Discharge planning Follow-up with us in the outpatient setting Exercise, weight reduction No driving, operating any heavy machinery or dangerous machinery, swimming alone for at least 6 months of being seizure, spell free.
--- NOTE | 2018-09-29 10:13 | P.DS ---
Date of admission: 09/23/18 17:13 Primary care physician: UNKNOWN Anticipated date of discharge: 09/29/18 Brief History from admission: 63-year-old female brought into the emergency room under Elliott act for reported suicidal ideation. Patient evaluated in the ED and found to have abnormal urinalysis suggestive of UTI. She was evaluated by psychiatry and Elliott act was lifted. Patient is cleared for discharge back to [facility]. However the facility will not accept her back. Patient will be in an outpatient bed with no observation services while waiting for placement. The patient is a poor historian, she states the police brought her here. She reports feeling frustrated but has no other complaints. Very poor historian with obvious developmental disorder. DS: Diagnosis - Discharge Diagnosis (1) Acute UTI Status: Acute (2) Acute kidney injury Status: Acute (3) Hypertension Status: Acute (4) Seizure Status: Acute (5) Sleep apnea Status: Acute DS: Medications - Discharge Medications Prescriptions: clonazepam 0.5 mg PO BID #6 tab doxycycline hyclate 100 mg PO Q12HR #8 tab hydralazine 100 mg PO TID 30 Days #90 tab methylphenidate HCl [Ritalin] 5 mg PO BID@0700,1200 #30 tab DS: Summary Hospital Course: Depression 63-year-old female with multiple medical problems including diabetes, hypertension, bipolar disorder brought in to the emergency room under a Elliott act. The patient was seen by psychiatry and medically cleared by ED physician but her facility would not accept her back. Case management assisted with placement. The pt's mood stabilized over the course of the hospitalization. She will need to follow up with psychiatry as an outpt. Acute COPD exacerbation Pt with congestion and cough. CXR 09/26 unremarkable. 09/27 had diffuse wheezing and endorsed chest pain. Chest pain resolved. Trops negative. EKG without acute ischemia. Repeat CXR unremarkable. She received Tessalon Perles and Chloraseptic spray as needed. She received scheduled nebs and albuterol inhaler as needed. Solumedrol IV was changed to prednisone. She received oxygen and BiPAP as needed. She utilized incentive spirometry. We encouraged ambulation. UTI with indwelling suprapubic catheter Ucx with MRSA. We changed antibiotics to doxycycline PO per sensitivities. Suprapubic catheter changed 09/25. She will follow up with urology. CONSUELO Noted with low urine OP. Nephrology was consulted. Lisinopril and Bumex were held. She received IVFs. Her creatinine improved. She will continue lisinopril but Bumex will remain on hold at discharge. Seizure disorder/ narcolepsy The pt had questionable episodes of seizure vs narcolepsy. EEG normal. Neurology was consulted. We continued her home meds. Ritalin was added. She was placed on seizure precautions, neuro checks. She received Ativan as needed. She was resumed on BiPAP HS, which she will need to continue at discharge. - Time Spent with Patient Total time spent providing and/or coordinating discharge services: Greater than 30 minutes - Quality: VTE Deep Vein Thrombosis/Pulmonary Embolism Present on Admission: No Exam Vital signs: Vital Signs 09/28/18 11:51 09/28/18 12:35 09/28/18 16:00 Temperature 96.5 F L 98.1 F Pulse Rate 74 75 98 H Respiratory Rate 14 18 Blood Pressure 176/90 H 142/78 H Pulse Oximetry 98 95 09/28/18 20:00 09/29/18 00:00 09/29/18 07:35 Temperature 98.8 F 98.9 F 97.6 F Pulse Rate 76 68 60 Respiratory Rate 18 21 16 Blood Pressure 113/56 L 155/87 H 177/62 H Pulse Oximetry 96 95 99 09/29/18 08:51 Temperature Pulse Rate 62 Respiratory Rate 18 Blood Pressure Pulse Oximetry Intake & Output 09/28/18 09/29/18 09/29/18 18:59 06:59 18:59 Intake Total 1720 / 1720 760 / 760 Output Total 2475 / 2475 2800 / 2800 Balance -755 / -755 -2040 / -2040 Weight 101.9 kg 102 kg Intake: Oral 1720 / 1720 760 / 760 Output: Urine 1000 / 1000 Urine Amount (Catheter) 1475 / 1475 2800 / 2800 Suprapubic 1475 / 1475 2800 / 2800 Other: Date of Last Bowel Movement 09/25/18 09/25/18 # Bowel Movements 1 Narrative: GENERAL: In NAD, obese. SKIN: Warm and dry. HEAD: Atraumatic. Normocephalic. EYES: Pupils equal and round. No scleral icterus. ENT: No nasal bleeding or discharge. NECK: Trachea midline. No JVD. CARDIOVASCULAR: Regular rate and rhythm. RESPIRATORY: No accessory muscle use. Wheezing has improved. GASTROINTESTINAL: Abdomen soft, non-tender, nondistended. MUSCULOSKELETAL: Extremities without clubbing, cyanosis, or edema. No obvious deformities. NEUROLOGICAL: Awake, alert & oriented x3. Moving upper and lower extremities. PSYCHIATRIC: Calm. Results Procedures completed during hospitalization: None Labs on day of discharge: Labs from last 24 hours 09/29/18 07:07 Sodium 141 Potassium 4.0 Chloride 104 Carbon Dioxide 28.7 Anion Gap 8 BUN 25 H Creatinine 0.89 Estimated GFR 64 L Random Glucose 230 H Calcium 9.2 - Impressions ITS Impressions Abdomen/Bladder Ultrasound 09/24/18 00:00 CONCLUSION: 1. Left renal cyst otherwise unremarkable renal ultrasound. No evidence of hydronephrosis or obstruction. Head CT 09/26/18 00:00 CONCLUSION: 1. No acute intracranial abnormality. . Chest X-Ray 09/26/18 08:30 CONCLUSION: No acute cardiopulmonary disease. Discharge Plan - Discharge Disposition Patient Disposition: Discharge to SNF - Discharge Condition Condition: Stable - Discharge Order Discharge Orders: Discharge Order (Routine); Ordered 09/29/18 Ordered By: Gabriel Glover - Discharge Details Anticipated Discharge Date: 09/29/18 - Physicians Team Primary Care Provider: UNKNOWN, Attending Provider: Gabriel Glover Other Providers: [facility]ency ; [facility] ,Agency ; Usman Medrano MD ; Darrel Demarco MD
== END 2018-09-29 13:06 ==
LOC: NEDA 17:54 → NEPD 17:54 → NEDA 09-22 16:51 → NEPFCDU 09-22 17:12 → N07 09-24 18:45
PROVIDERS: ADMIT Hospitalist; ATTEND Hospitalist